=== PATIENT | female | born 1980 | race Caucasian/White ===

== ENCOUNTER 2017-10-14 12:04 | Day surgery (SDC) | payer OTHER ==
[~2017-10-14] VITALS: Ht 167.6 cm; Wt 60.3 kg
[~2017-10-14 12:04] MED LIST: ADAL40PEN INJ; ASCO250CH; CEPH500 PO; CIMZIA400 MG/2 M; CLIN150 PO; DIPATR PO; GABA300 PO; HYDACE5 PO; IBUP800 PO; MULVITMINE; NITR100CA; ONDA4 PO; ONDA4ODT MM; OXYACE5T PO; PHENA100; PHENA200 PO; PROM12.5S PR; PROM25 PO; RXPHEN200 PO; SERT100 PO; SULTRIDS PO; TRAM50 PO
[2017-10-14 12:24] LABS: BASOPHILS ABSOLUTE AUTO 0.05 K/mm3 (0.00-0.23); BASOPHILS PERCENT AUTO 1 % (0-2); EOSINOPHILS ABSOLUTE AUTO 0.06 K/mm3 (0.00-0.68); EOSINOPHILS PERCENT AUTO 1 % (0-6); Hematocrit 41.3 % (33.0-51.0); Hemoglobin 13.5 g/dL (11.5-16.0); IMMATURE GRAN ABSOLUTE AUTO 0.02 K/mm3 (0.00-0.10); IMMATURE GRAN PERCENT AUTO 0 % (0-1); LYMPHOCYTES ABSOLUTE AUTO 1.97 K/mm3 (0.84-5.20); LYMPHOCYTES PERCENT AUTO 30 % (21-46); MONOCYTES ABSOLUTE AUTO 0.31 K/mm3 (0.16-1.47); MONOCYTES PERCENT AUTO 5 % (4-13); Mean Corpuscular HGB 28.7 pg (26.0-34.0); Mean Corpuscular HGB Conc 32.7 g/dL (31.5-36.5); Mean Corpuscular Volume 88 fL (80-100); NEUTROPHILS ABSOLUTE AUTO 4.27 K/mm3 (1.96-9.15); NEUTROPHILS PERCENT AUTO 64 % (41-73); Platelet Count 352 K/mm3 (150-400); RDW Coefficient Variation 13.2 % (11.7-14.2); RDW Standard Deviation 42.5 fL (35.1-46.3); Red Blood Cell Count 4.71 M/mm3 (3.80-5.20); White Blood Cell Count 6.68 K/mm3 (4.00-11.30)
[2017-10-14 12:44] LABS: Alanine Aminotransfer (ALT/SGP 32 U/L (12-78); Albumin, Blood 3.5 g/dL (3.4-5.0); Albumin/Globulin Ratio 0.7 (0.8-1.8); Alk Phos 62 U/L (50-136); Anion Gap 10 mmol/L (6-16); Aspartate Aminotrans (AST/SGOT 25 U/L (12-37); Bilirubin, Total 0.2 mg/dL (0.1-1.0); Blood Urea Nitrogen 8 mg/dL (8-24); Bun/Creatinine Ratio 12.1 (12.0-20.0); C-REACTIVE PROTEIN, EXT RANGE 0.321 mg/dL (0.000-0.300); CO2, Blood 24 mmol/L (21-32); Calcium, Blood 8.3 mg/dL (8.5-10.1); Chloride, Blood 108 mmol/L (98-108); Creatinine, Blood 0.66 mg/dL (0.40-1.00); Glomerular Filtration Rate >60 (60-); Glucose, Blood 91 mg/dL (70-99); Potassium, Blood 3.4 mmol/L (3.5-5.5); Sodium, Blood 142 mmol/L (136-145); Total Protein, Blood 8.5 g/dL (6.4-8.2)
[2017-10-14 12:45] LABS: Percent Saturation 16.6 % (15.0-50.0)
[2017-10-14] MEDS ORDERED: VENL75ER PO (12:49)
[2017-10-14] MEDS ORDERED: Zonegran100 MG PO (12:49)
[2017-10-14] MEDS ORDERED: Cyclobenzaprine5 MG PO (12:50)
[2017-10-14] MEDS ORDERED: GABA100 PO (12:50)
[2018-02-07] MEDS ORDERED: ONDA4ODT MM (09:40)
[2018-02-07] MEDS ORDERED: ZONI100 PO (09:41)
[2018-02-07] MEDS ORDERED: Cyclobenzaprine5 MG PO (09:41)
[2018-02-07] MEDS ORDERED: VENL75ER PO (09:42)
[2018-02-07] MEDS ORDERED: BUTALB-ACETAMI1 EAC2 PO (09:42)
[2018-02-07] MEDS ORDERED: GABA100 PO (09:42)
[2018-02-07] MEDS ORDERED: OXYC5 PO (09:43)
[2018-02-07] MEDS ORDERED: LORA1 PO (09:43)
== END 2017-10-14 15:10 | disposition home or self-care (01) ==
LOC: ORSCSDS 12:04
PROVIDERS: Internal Medicine Gastroenterology
PROC: 0D7B8ZZ Dilation of Ileum, Via Natural or Artificial Opening Endoscopic (ICD-10-PCS; principal; 2017-10-14 13:45)
PROC: 0DBE8ZX Excision of Large Intestine, Via Natural or Artificial Opening Endoscopic, Diagnostic (ICD-10-PCS; principal; 2017-10-14 13:45)
DX: R19.7 Diarrhea, unspecified (principal); K63.3 Ulcer of intestine; K50.80 Crohn's disease of both small and large intestine without complications; M79.7 Fibromyalgia; G40.909 Epilepsy, unspecified, not intractable, without status epilepticus; F17.210 Nicotine dependence, cigarettes, uncomplicated; Z79.899 Other long term (current) drug therapy
CPT/HCPCS: 36415; 80053; 82306; 82728; 83540; 83550; 85025; 86140; 88305; C1726; J2060; J7120

== ENCOUNTER 2017-12-25 17:34 | Emergency (ER) | payer OTHER ==
[~2017-12-25] VITALS: Ht 167.6 cm; Wt 59.4 kg
[~2017-12-25 17:34] MED LIST changes: +Cyclobenzaprine5 MG; +GABA100; +ONDA4; +VENL75ER; +Zonegran100 MG
[2017-12-25 18:45] LABS: Calcium, Ionized (POC) 1.11 mmol/L (1.10-1.46); Chloride (POC) 105 mmol/L (98-108); Creatinine (POC) 0.6 mg/dL (0.6-1.0); Glucose (ISTAT POC) 84 mg/dL (70-99); Hemoglobin (POC) 11.6 g/dL (12.0-16.0); Potassium (POC) 3.5 mmol/L (3.5-5.5); Sodium (POC) 142 mmol/L (135-148); Total CO2 (POC) 23 mmol/L (21-32)
[2017-12-25 18:49] LABS: BASOPHILS ABSOLUTE AUTO 0.03 K/mm3 (0.00-0.23); BASOPHILS PERCENT AUTO 0 % (0-2); EOSINOPHILS ABSOLUTE AUTO 0.08 K/mm3 (0.00-0.68); EOSINOPHILS PERCENT AUTO 1 % (0-6); Hematocrit 35.3 % (33.0-51.0); Hemoglobin 11.5 g/dL (11.5-16.0); IMMATURE GRAN ABSOLUTE AUTO 0.01 K/mm3 (0.00-0.10); IMMATURE GRAN PERCENT AUTO 0 % (0-1); LYMPHOCYTES ABSOLUTE AUTO 2.05 K/mm3 (0.84-5.20); LYMPHOCYTES PERCENT AUTO 27 % (21-46); MONOCYTES ABSOLUTE AUTO 0.39 K/mm3 (0.16-1.47); MONOCYTES PERCENT AUTO 5 % (4-13); Mean Corpuscular HGB 28.3 pg (26.0-34.0); Mean Corpuscular HGB Conc 32.6 g/dL (31.5-36.5); Mean Corpuscular Volume 87 fL (80-100); Mean Platelet Volume 9.9 fL (9.1-12.4); NEUTROPHILS ABSOLUTE AUTO 4.99 K/mm3 (1.96-9.15); NEUTROPHILS PERCENT AUTO 66 % (41-73); Platelet Count 321 K/mm3 (150-400); RDW Coefficient Variation 13.2 % (11.7-14.2); RDW Standard Deviation 41.7 fL (35.1-46.3); Red Blood Cell Count 4.07 M/mm3 (3.80-5.20); White Blood Cell Count 7.55 K/mm3 (4.00-11.30)
[2017-12-25 19:09] LABS: Alanine Aminotransfer (ALT/SGP 20 U/L (12-78); Albumin, Blood 3.3 g/dL (3.4-5.0); Albumin/Globulin Ratio 0.7 (0.8-1.8); Alk Phos 56 U/L (50-136); Anion Gap 9 mmol/L (6-16); Aspartate Aminotrans (AST/SGOT 14 U/L (12-37); Bilirubin, Total 0.2 mg/dL (0.1-1.0); Blood Urea Nitrogen 10 mg/dL (8-24); Bun/Creatinine Ratio 15.1 (12.0-20.0); CO2, Blood 24 mmol/L (21-32); Calcium, Blood 8.2 mg/dL (8.5-10.1); Chloride, Blood 109 mmol/L (98-108); Creatinine, Blood 0.66 mg/dL (0.40-1.00); Globulin, Blood 4.5 g/dL (2.2-4.0); Glomerular Filtration Rate >60 (60-); Glucose, Blood 85 mg/dL (70-99); Potassium, Blood 3.6 mmol/L (3.5-5.5); Sodium, Blood 142 mmol/L (136-145); Total Protein, Blood 7.8 g/dL (6.4-8.2)
[2017-12-25] MEDS ORDERED: Bactrim Ds Tab1 EACH PO (20:50)
[2017-12-25] MEDS ORDERED: CEPH500 PO (20:50)
== END 2017-12-25 21:11 | disposition home or self-care (01) ==
LOC: ER 17:34
PROVIDERS: Physician Assistant
DX: L03.213 Periorbital cellulitis (principal); Z88.8 Allergy status to other drugs, medicaments and biological substances; Z88.5 Allergy status to narcotic agent; Z88.6 Allergy status to analgesic agent; Z79.899 Other long term (current) drug therapy; D64.9 Anemia, unspecified; F17.200 Nicotine dependence, unspecified, uncomplicated
CPT/HCPCS: 36415; 70487; 80047; 80053; 85014; 85025; 99284; Q9967

== ENCOUNTER → 2017-12-28 | Outpatient (CLI) | payer OTHER ==
[~2017-12-28] MED LIST changes: +BUTALB-ACETAMI1 EAC2 PO; +Bactrim Ds Tab1 EACH PO; -Cyclobenzaprine5 MG; +Cyclobenzaprine5 MG PO; -GABA100; +GABA100 PO; +METR500 PO; -ONDA4; -VENL75ER; +VENL75ER PO; -Zonegran100 MG; +Zonegran100 MG PO
[2017-12-29 10:36] LABS: Candida species (DNA Probe) Negative (NEGATIVE); G. vaginalis (DNA Probe) Positive (NEGATIVE); T. vaginalis (DNA Probe) Negative (NEGATIVE)
== END ==
LOC: LAB SHORT 11:35 → LAB 11:35
PROVIDERS: Advanced Practice Midwife
DX: Z01.419 Encounter for gynecological examination (general) (routine) without abnormal findings (principal); L29.9 Pruritus, unspecified
CPT/HCPCS: 87480; 87510; 87624; 87660; G0123

== ENCOUNTER 2018-01-03 09:01 | Inpatient (IN) | payer OTHER ==
[~2018-01-03] VITALS: Ht 167.6 cm; Wt 59.4 kg
[~2018-01-03 09:01] MED LIST changes: -BUTALB-ACETAMI1 EAC2 PO; -METR500 PO
[2018-01-03] MEDS ORDERED: METR500 PO (09:58)
[2018-01-03] MEDS ORDERED: BUTALB-ACETAMI1 EAC2 PO (09:59)
[2018-01-03 10:47] LABS: BASOPHILS ABSOLUTE AUTO 0.03 K/mm3 (0.00-0.23); BASOPHILS PERCENT AUTO 0 % (0-2); EOSINOPHILS ABSOLUTE AUTO 0.09 K/mm3 (0.00-0.68); EOSINOPHILS PERCENT AUTO 1 % (0-6); Hematocrit 37.4 % (33.0-51.0); Hemoglobin 12.4 g/dL (11.5-16.0); IMMATURE GRAN ABSOLUTE AUTO 0.02 K/mm3 (0.00-0.10); IMMATURE GRAN PERCENT AUTO 0 % (0-1); LYMPHOCYTES PERCENT AUTO 23 % (21-46); MONOCYTES ABSOLUTE AUTO 0.48 K/mm3 (0.16-1.47); MONOCYTES PERCENT AUTO 6 % (4-13); Mean Corpuscular HGB Conc 33.2 g/dL (31.5-36.5); Mean Corpuscular Volume 84 fL (80-100); Mean Platelet Volume 9.9 fL (9.1-12.4); NEUTROPHILS ABSOLUTE AUTO 6.01 K/mm3 (1.96-9.15); NEUTROPHILS PERCENT AUTO 70 % (41-73); Platelet Count 356 K/mm3 (150-400); RDW Coefficient Variation 13.3 % (11.7-14.2); RDW Standard Deviation 41.1 fL (35.1-46.3); Red Blood Cell Count 4.43 M/mm3 (3.80-5.20); White Blood Cell Count 8.63 K/mm3 (4.00-11.30)
[2018-01-03 11:04] LABS: Alanine Aminotransfer (ALT/SGP 21 U/L (12-78); Albumin/Globulin Ratio 0.6 (0.8-1.8); Alk Phos 58 U/L (50-136); Anion Gap 7 mmol/L (6-16); Aspartate Aminotrans (AST/SGOT 16 U/L (12-37); Bilirubin, Total 0.3 mg/dL (0.1-1.0); Blood Urea Nitrogen 7 mg/dL (8-24); Bun/Creatinine Ratio 10.6 (12.0-20.0); CO2, Blood 27 mmol/L (21-32); Calcium, Blood 8.5 mg/dL (8.5-10.1); Chloride, Blood 104 mmol/L (98-108); Creatinine, Blood 0.66 mg/dL (0.40-1.00); Globulin, Blood 4.7 g/dL (2.2-4.0); Glomerular Filtration Rate >60 (60-); Glucose, Blood 84 mg/dL (70-99); Potassium, Blood 3.6 mmol/L (3.5-5.5); Sodium, Blood 138 mmol/L (136-145); Total Protein, Blood 7.7 g/dL (6.4-8.2)
[2018-01-03 11:34] LABS: Lactate Dehydrogenase (Ld),Bld 77 U/L (100-240); Triglycerides 154 mg/dL (30-140)
[2018-01-03 14:55] LABS: Cholesterol 111 mg/dL (50-200); Triglycerides 140 mg/dL (30-140)
[2018-01-04 08:43] LABS: BASOPHILS ABSOLUTE AUTO 0.03 K/mm3 (0.00-0.23); BASOPHILS PERCENT AUTO 1 % (0-2); EOSINOPHILS ABSOLUTE AUTO 0.08 K/mm3 (0.00-0.68); EOSINOPHILS PERCENT AUTO 1 % (0-6); Hematocrit 32.2 % (33.0-51.0); Hemoglobin 10.5 g/dL (11.5-16.0); IMMATURE GRAN ABSOLUTE AUTO 0.01 K/mm3 (0.00-0.10); IMMATURE GRAN PERCENT AUTO 0 % (0-1); LYMPHOCYTES ABSOLUTE AUTO 2.23 K/mm3 (0.84-5.20); LYMPHOCYTES PERCENT AUTO 35 % (21-46); MONOCYTES ABSOLUTE AUTO 0.37 K/mm3 (0.16-1.47); MONOCYTES PERCENT AUTO 6 % (4-13); Mean Corpuscular HGB Conc 32.6 g/dL (31.5-36.5); Mean Corpuscular Volume 86 fL (80-100); Mean Platelet Volume 9.7 fL (9.1-12.4); NEUTROPHILS ABSOLUTE AUTO 3.71 K/mm3 (1.96-9.15); NEUTROPHILS PERCENT AUTO 58 % (41-73); Platelet Count 304 K/mm3 (150-400); RDW Coefficient Variation 13.2 % (11.7-14.2); RDW Standard Deviation 41.1 fL (35.1-46.3); Red Blood Cell Count 3.75 M/mm3 (3.80-5.20); White Blood Cell Count 6.43 K/mm3 (4.00-11.30)
[2018-01-04 08:59] LABS: Alanine Aminotransfer (ALT/SGP 19 U/L (12-78); Albumin, Blood 2.6 g/dL (3.4-5.0); Albumin/Globulin Ratio 0.6 (0.8-1.8); Alk Phos 53 U/L (50-136); Anion Gap 9 mmol/L (6-16); Aspartate Aminotrans (AST/SGOT 17 U/L (12-37); Bilirubin, Total 0.2 mg/dL (0.1-1.0); Blood Urea Nitrogen 6 mg/dL (8-24); Bun/Creatinine Ratio 9.6 (12.0-20.0); CO2, Blood 27 mmol/L (21-32); Calcium, Blood 7.9 mg/dL (8.5-10.1); Chloride, Blood 103 mmol/L (98-108); Creatinine, Blood 0.62 mg/dL (0.40-1.00); Globulin, Blood 4.1 g/dL (2.2-4.0); Glomerular Filtration Rate >60 (60-); Glucose, Blood 63 mg/dL (70-99); Potassium, Blood 3.4 mmol/L (3.5-5.5); Sodium, Blood 139 mmol/L (136-145); Total Protein, Blood 6.7 g/dL (6.4-8.2)
== END 2018-01-05 12:30 | disposition left against medical advice (07) | DRG 439 ==
LOC: ER 09:01 → MEDS 11:26 → ENPENDDIS 01-05 11:00 → MEDS 01-05 12:30
PROVIDERS: Emergency Medicine; Internal Medicine
DX: K85.90 Acute pancreatitis without necrosis or infection, unspecified (principal); K50.90 Crohn's disease, unspecified, without complications; F32.9 Major depressive disorder, single episode, unspecified; M12.9 Arthropathy, unspecified; M79.7 Fibromyalgia
CPT/HCPCS: 36415; 80053; 82465; 83615; 83690; 84478; 84703; 85025; 87081; 96361; 96374; 99285; J0780; J1650; J2405; J2550; J3010; J7030; J7120

== ENCOUNTER → 2018-02-10 | Outpatient (CLI) | payer OTHER ==
[~2018-02-10] MED LIST changes: +BUTALB-ACETAMI1 EAC2 PO; +LORA1 PO; +METR500 PO; +OXYC5 PO; +ZONI100 PO
[2018-02-11 11:23] LABS: Candida species (DNA Probe) Negative (NEGATIVE); G. vaginalis (DNA Probe) Positive (NEGATIVE); T. vaginalis (DNA Probe) Negative (NEGATIVE)
[2018-02-14 08:10] LABS: CHLAMYDIA BY NAA Negative (Negative); GONOCOCCUS BY NAA Negative (Negative); TRICH VAG BY NAA Negative (Negative)
== END | disposition home or self-care (01) ==
LOC: LAB SHORT 18:07 → LAB 18:07
PROVIDERS: Advanced Practice Midwife
DX: Z11.3 Encounter for screening for infections with a predominantly sexual mode of transmission (principal); N76.0 Acute vaginitis
CPT/HCPCS: 87480; 87491; 87510; 87591; 87660; 87661

== ENCOUNTER → 2018-08-24 | Outpatient (CLI) | payer OTHER ==
[2018-08-24 16:21] LABS: BASOPHILS ABSOLUTE AUTO 0.03 K/mm3 (0.00-0.23); BASOPHILS PERCENT AUTO 0 % (0-2); EOSINOPHILS ABSOLUTE AUTO 0.08 K/mm3 (0.00-0.68); EOSINOPHILS PERCENT AUTO 1 % (0-6); Hematocrit 36.2 % (33.0-51.0); Hemoglobin 11.9 g/dL (11.5-16.0); IMMATURE GRAN ABSOLUTE AUTO 0.03 K/mm3 (0.00-0.10); IMMATURE GRAN PERCENT AUTO 0 % (0-1); LYMPHOCYTES ABSOLUTE AUTO 2.43 K/mm3 (0.84-5.20); LYMPHOCYTES PERCENT AUTO 34 % (21-46); MONOCYTES ABSOLUTE AUTO 0.45 K/mm3 (0.16-1.47); MONOCYTES PERCENT AUTO 6 % (4-13); Mean Corpuscular HGB 30.1 pg (26.0-34.0); Mean Corpuscular HGB Conc 32.9 g/dL (31.5-36.5); Mean Corpuscular Volume 91 fL (80-100); Mean Platelet Volume 10.1 fL (9.1-12.4); NEUTROPHILS ABSOLUTE AUTO 4.15 K/mm3 (1.96-9.15); NEUTROPHILS PERCENT AUTO 58 % (41-73); Platelet Count 285 K/mm3 (150-400); RDW Coefficient Variation 12.9 % (11.7-14.2); RDW Standard Deviation 42.9 fL (35.1-46.3); Red Blood Cell Count 3.96 M/mm3 (3.80-5.20); White Blood Cell Count 7.17 K/mm3 (4.00-11.30)
[2018-08-24 17:05] LABS: Alanine Aminotransfer (ALT/SGP 28 U/L (12-78); Albumin, Blood 3.8 g/dL (3.4-5.0); Alk Phos 54 U/L (50-136); Anion Gap 8 mmol/L (6-16); Aspartate Aminotrans (AST/SGOT 16 U/L (12-37); Bilirubin, Total 0.3 mg/dL (0.1-1.0); Blood Urea Nitrogen 13 mg/dL (8-24); CO2, Blood 25 mmol/L (21-32); Calcium, Blood 8.4 mg/dL (8.5-10.1); Chloride, Blood 106 mmol/L (98-108); Creatinine, Blood 0.93 mg/dL (0.40-1.00); Globulin, Blood 3.7 g/dL (2.2-4.0); Glomerular Filtration Rate >60 (60-); Glucose, Blood 76 mg/dL (70-99); Potassium, Blood 3.7 mmol/L (3.5-5.5); Sodium, Blood 139 mmol/L (136-145); Total Protein, Blood 7.5 g/dL (6.4-8.2)
[2018-08-24 17:07] LABS: Percent Saturation 8.4 % (15.0-50.0)
== END ==
LOC: LAB 15:40 → LAB SHORT 15:40
PROVIDERS: Physician Assistant
DX: K50.80 Crohn's disease of both small and large intestine without complications (principal)
CPT/HCPCS: 80053; 82306; 82728; 83540; 83550; 85025

== ENCOUNTER → 2018-09-21 | Outpatient (CLI) | payer OTHER ==
[2018-09-22 08:19] LABS: Candida species (DNA Probe) Negative (NEGATIVE); G. vaginalis (DNA Probe) Negative (NEGATIVE); T. vaginalis (DNA Probe) Negative (NEGATIVE)
== END | disposition home or self-care (01) ==
LOC: LAB 16:40 → LAB SHORT 16:40
PROVIDERS: Advanced Practice Midwife
DX: N76.0 Acute vaginitis (principal)
CPT/HCPCS: 87070; 87205; 87480; 87510; 87660

== ENCOUNTER 2018-10-16 17:50 | Emergency (ER) | payer OTHER | END 2018-10-16 19:56 | disposition left against medical advice (07) | LOC: ER 17:50 | DX: Z53.21 Procedure and treatment not carried out due to patient leaving prior to being seen by health care provider (principal) ==

== ENCOUNTER → 2018-10-17 | Outpatient (CLI) | payer OTHER ==
[2018-10-17 15:45] LABS: BASOPHILS ABSOLUTE AUTO 0.07 K/mm3 (0.00-0.23); BASOPHILS PERCENT AUTO 0 % (0-2); EOSINOPHILS ABSOLUTE AUTO 0.12 K/mm3 (0.00-0.68); EOSINOPHILS PERCENT AUTO 1 % (0-6); Hematocrit 37.2 % (33.0-51.0); Hemoglobin 12.8 g/dL (11.5-16.0); IMMATURE GRAN ABSOLUTE AUTO 0.17 K/mm3 (0.00-0.10); IMMATURE GRAN PERCENT AUTO 1 % (0-1); LYMPHOCYTES ABSOLUTE AUTO 2.49 K/mm3 (0.84-5.20); LYMPHOCYTES PERCENT AUTO 11 % (21-46); MONOCYTES ABSOLUTE AUTO 0.83 K/mm3 (0.16-1.47); MONOCYTES PERCENT AUTO 4 % (4-13); Mean Corpuscular HGB 29.2 pg (26.0-34.0); Mean Corpuscular HGB Conc 34.4 g/dL (31.5-36.5); Mean Corpuscular Volume 85 fL (80-100); Mean Platelet Volume 9.7 fL (9.1-12.4); NEUTROPHILS ABSOLUTE AUTO 19.22 K/mm3 (1.96-9.15); NEUTROPHILS PERCENT AUTO 84 % (41-73); Platelet Count 345 K/mm3 (150-400); RDW Coefficient Variation 12.9 % (11.7-14.2); RDW Standard Deviation 40.1 fL (35.1-46.3); Red Blood Cell Count 4.39 M/mm3 (3.80-5.20)
[2018-10-17 15:58] LABS: Alanine Aminotransfer (ALT/SGP 26 U/L (12-78); Albumin/Globulin Ratio 0.6 (0.8-1.8); Alk Phos 105 U/L (40-126); Anion Gap 11 mmol/L (6-16); Aspartate Aminotrans (AST/SGOT 14 U/L (12-37); Bilirubin, Total 0.5 mg/dL (0.1-1.0); Blood Urea Nitrogen 9 mg/dL (8-24); Bun/Creatinine Ratio 11.4 (12.0-20.0); CO2, Blood 27 mmol/L (21-32); Calcium, Blood 8.2 mg/dL (8.5-10.1); Chloride, Blood 95 mmol/L (98-108); Creatinine, Blood 0.79 mg/dL (0.40-1.00); Globulin, Blood 5.3 g/dL (2.2-4.0); Glomerular Filtration Rate >60 (60-); Glucose, Blood 91 mg/dL (70-99); Potassium, Blood 3.5 mmol/L (3.5-5.5); Sodium, Blood 133 mmol/L (136-145); Total Protein, Blood 8.3 g/dL (6.4-8.2)
== END | disposition home or self-care (01) ==
LOC: LAB SHORT 15:41 → LAB EV 15:41
PROVIDERS: Physician Assistant
DX: N39.0 Urinary tract infection, site not specified (principal); R11.2 Nausea with vomiting, unspecified
CPT/HCPCS: 80053; 85025

== ENCOUNTER → 2019-01-16 | Outpatient (CLI) | payer OTHER ==
[2019-01-17 11:14] LABS: Candida species (DNA Probe) Negative (NEGATIVE); G. vaginalis (DNA Probe) Positive (NEGATIVE); T. vaginalis (DNA Probe) Negative (NEGATIVE)
[2019-01-19 01:08] LABS: CHLAMYDIA TRACHOMATIS, NAA Negative (Negative); HPV 16 Negative (Negative); HPV 18 Negative (Negative); HPV OTHER HR TYPES Negative (Negative); NEISSERIA GONORRHOEAE, NAA Negative (Negative)
== END | disposition home or self-care (01) ==
LOC: LAB 16:53 → LAB SHORT 16:53
PROVIDERS: Advanced Practice Midwife
DX: Z01.419 Encounter for gynecological examination (general) (routine) without abnormal findings (principal); Z11.3 Encounter for screening for infections with a predominantly sexual mode of transmission; N93.8 Other specified abnormal uterine and vaginal bleeding; N89.8 Other specified noninflammatory disorders of vagina; N89.9 Noninflammatory disorder of vagina, unspecified
CPT/HCPCS: 87480; 87510; 87529; 87660

== ENCOUNTER → 2019-02-07 | Outpatient (CLI) | payer OTHER ==
[2019-02-07 17:48] LABS: Alanine Aminotransfer (ALT/SGP 27 U/L (12-78); Albumin, Blood 3.9 g/dL (3.4-5.0); Alk Phos 56 U/L (50-136); Anion Gap 7 mmol/L (6-16); Aspartate Aminotrans (AST/SGOT 16 U/L (12-37); Bilirubin, Total 0.3 mg/dL (0.1-1.0); Blood Urea Nitrogen 9 mg/dL (8-24); Bun/Creatinine Ratio 11.4 (12.0-20.0); CO2, Blood 27 mmol/L (21-32); Calcium, Blood 8.2 mg/dL (8.5-10.1); Chloride, Blood 107 mmol/L (98-108); Creatinine, Blood 0.79 mg/dL (0.40-1.00); Globulin, Blood 3.9 g/dL (2.2-4.0); Glomerular Filtration Rate >60 (60-); Glucose, Blood 81 mg/dL (70-99); Potassium, Blood 4.3 mmol/L (3.5-5.5); Sodium, Blood 141 mmol/L (136-145); Total Protein, Blood 7.8 g/dL (6.4-8.2)
== END ==
LOC: LAB SHORT 17:09 → LAB 17:09
PROVIDERS: Physician Assistant
DX: K50.80 Crohn's disease of both small and large intestine without complications (principal); E61.1 Iron deficiency
CPT/HCPCS: 80053; 82728; 83540; 83550

== ENCOUNTER → 2019-02-20 | Outpatient (CLI) | payer OTHER | END | disposition home or self-care (01) | LOC: LAB SHORT 09:31 → PLD 09:31 | DX: N92.0 Excessive and frequent menstruation with regular cycle (principal) | CPT/HCPCS: 88305 ==

== ENCOUNTER 2019-03-28 08:35 | Day surgery (SDC) | payer OTHER ==
[~2019-03-28] VITALS: Ht 167.6 cm; Wt 61.9 kg
--- NOTE | 2019-03-28 10:43 | NUR ---
03/28/19 1043 Becki Cespedes BP 88/53 DR. GIBBONS AWARE, NO ORDERS, CONTINUE TO MONITOR.
--- NOTE | 2019-03-28 11:18 | NUR ---
03/28/19 1118 Becki Cespedes DEACCESSED WITHOUT ANY PROBLEMS. BANDAID APPLIED TO SITE AFTER NEEDLE OUT.
== END 2019-03-28 11:15 | disposition home or self-care (01) ==
LOC: ORSCSDS 08:35
PROVIDERS: Internal Medicine Gastroenterology
PROC: 0DBB8ZX Excision of Ileum, Via Natural or Artificial Opening Endoscopic, Diagnostic (ICD-10-PCS; principal; 2019-03-28 09:45)
PROC: 0D7B8ZZ Dilation of Ileum, Via Natural or Artificial Opening Endoscopic (ICD-10-PCS; principal; 2019-03-28 09:45)
PROC: 0DBE8ZX Excision of Large Intestine, Via Natural or Artificial Opening Endoscopic, Diagnostic (ICD-10-PCS; principal; 2019-03-28 09:45)
DX: R19.7 Diarrhea, unspecified (principal); R10.9 Unspecified abdominal pain; K50.90 Crohn's disease, unspecified, without complications; K56.699 Other intestinal obstruction unspecified as to partial versus complete obstruction; I10 Essential (primary) hypertension; G40.909 Epilepsy, unspecified, not intractable, without status epilepticus; Z87.891 Personal history of nicotine dependence; Z79.899 Other long term (current) drug therapy
CPT/HCPCS: 88305; C1726; J1642; J2704; J7120

== ENCOUNTER 2019-05-16 07:11 | Day surgery (SDC) | payer OTHER ==
[~2019-05-16] VITALS: Ht 167.6 cm; Wt 60.4 kg
--- NOTE | 2019-05-16 07:59 | NUR ---
Ambulatory in Day Surgery.REPORTS 4/10 LOWER BACK PAIN. ALSO, REPORTS ANXIETY REGARDING IV START. ORDER OBTAINED FROM DR. MURRAY FOR ATIVAN 1 MG PO PRIOR TO IV START. HISTORY AND ALLERGIES REVIEWED. NPO STATUS CONFIRMED. LUNGS CLEAR.
--- NOTE | 2019-05-16 10:11 | NUR ---
INTO STEP VIA YOUNG. PT SOMULENT, BUT AWAKENS TO VERBAL. STERI STRIP TO RIGHT CHEST WALL C/D/I-NO NOTED BLEEDING OR HEMATOMA. VS WDL. WILL INITIATE ROSEMARY WHEN PT AWAKE AND ALERT.
--- NOTE | 2019-05-16 12:16 | NUR ---
Patient up to Ambulate independently. Gait steady. Dressing to procedure site clean, dry, intact with no visible drainage, swelling, erythema or bruising noted. Discharge instructions reviewed with patient. Patient verbalizes understanding. Copy given to patient to take home. Discharged via wheelchair to private car for ride home.
== END 2019-05-16 12:15 | disposition home or self-care (01) ==
LOC: ORSCMMR 07:11 → ORD 07:30 → ORSCMMR 07:30
PROVIDERS: Surgery
PROC: 0JPT3WZ Removal of Totally Implantable Vascular Access Device from Trunk Subcutaneous Tissue and Fascia, Percutaneous Approach (ICD-10-PCS; principal; 2019-05-16 09:00)
DX: T80.212A Local infection due to central venous catheter, initial encounter (principal); K50.80 Crohn's disease of both small and large intestine without complications; Z87.891 Personal history of nicotine dependence; Z79.899 Other long term (current) drug therapy
CPT/HCPCS: 87070; 87077; 87186; J0690; J2250; J3010; J7120

== ENCOUNTER 2019-06-19 06:03 | Day surgery (SDC) | payer OTHER ==
[~2019-06-19] VITALS: Ht 167.6 cm; Wt 62.0 kg
[2019-06-19] MEDS ORDERED: TROKENDI XR100 MG PO (06:26)
--- NOTE | 2019-06-19 06:40 | NUR ---
Ambulatory in Day Surgery.PT REPORTS FEELING EXTREMELY ANXIOUS. SHE REMINDS THIS RN OF HER MEDIPORT REMOVAL. AT THAT TIME SHE HAD AN ANXIETY ATTACK AND NEEDE ATIVAN PRIOR TO IV START. DR. ANAND CONTACTED AND ORDER OBTAINED. History, Chart, Medications and Allergies reviewed before start of procedure.Lungs clear T/O to Auscultation. Patient confirms NPO status and agrees with scheduled surgery. Surgical site prepped with 2% Chlorhexidine cloth wipe. Patient States Post-Procedure ride home has been arranged.
--- NOTE | 2019-06-19 08:29 | NUR ---
06/19/19 0829 Koby Castaneda AFTER ATTEMPTING TO PLACE THE MEDIPORT ON THE RIGHT, THE MEDIPORT WAS SUCCESFULLY PLACED ON THE LEFT SIDE OF CHEST.
--- NOTE | 2019-06-19 13:11 | NUR ---
Patient up to Ambulate independently. Gait steady. Discharge instructions reviewed with patient. Patient verbalizes understanding. Copy given to patient to take home. Discharged via wheelchair to private car for ride home WITH BOYFRIEND.
== END 2019-06-19 22:50 | disposition home or self-care (01) ==
LOC: ORSCMMR 06:03 → ORD 07:30 → ORSCMMR 22:50
PROVIDERS: Surgery
PROC: 05H633Z Insertion of Infusion Device into Left Subclavian Vein, Percutaneous Approach (ICD-10-PCS; principal; 2019-06-19 07:30)
PROC: B5171ZA Fluoroscopy of Left Subclavian Vein using Low Osmolar Contrast, Guidance (ICD-10-PCS; principal; 2019-06-19 07:30)
DX: K50.80 Crohn's disease of both small and large intestine without complications (principal)
CPT/HCPCS: 77001; C1788; J0690; J1100; J1642; J2250; J2405; J2704; J3010; J7120

== ENCOUNTER 2019-07-17 08:41 | Day surgery (SDC) | payer OTHER ==
[~2019-07-17] VITALS: Ht 167.6 cm; Wt 61.4 kg
[~2019-07-17 08:41] MED LIST changes: +ASCO500 PO; +FERSU300 PO; +TROKENDI XR100 MG PO; +VITAMIN D250000 UNI1 PO; +VITAMIN D31000 UNI3 PO; +[UNRECOGNIZED DRUG - OTHER]
--- NOTE | 2019-07-17 09:13 | NUR ---
Ambulatory in Day Surgery.PT IS VERY ANXIOUS. DR. GLORIA AWARE. ORDER OBTAINED FOR ATIVAN 2 MG PO. ALSO, VERBAL OK TO ACCESS MEDIPORT PER DR. GLORIA. History, Chart, Medications and Allergies reviewed before start of procedure.Lungs clear T/O to Auscultation. Patient confirms NPO status and agrees with scheduled surgery. Patient reports completing Chlorhexadine shower X2 prior to admission to hospital.Surgical site prepped with 2% Chlorhexidine cloth wipe.
--- NOTE | 2019-07-17 09:18 | NUR ---
MED WITH ATIVAN 2 MG PO, THEN LEFT CHEST MEDIPORT ACCESSED WITH 20 GUAGE 1 INCH CATHETER. CBC SENT TO LAB.
[2019-07-17 09:58] LABS: BASOPHILS ABSOLUTE AUTO 0.03 K/mm3 (0.00-0.23); BASOPHILS PERCENT AUTO 0 % (0-2); EOSINOPHILS ABSOLUTE AUTO 0.08 K/mm3 (0.00-0.68); EOSINOPHILS PERCENT AUTO 1 % (0-6); Hematocrit 27.9 % (33.0-51.0); Hemoglobin 9.6 g/dL (11.5-16.0); IMMATURE GRAN ABSOLUTE AUTO 0.29 K/mm3 (0.00-0.10); IMMATURE GRAN PERCENT AUTO 4 % (0-1); LYMPHOCYTES ABSOLUTE AUTO 2.89 K/mm3 (0.84-5.20); LYMPHOCYTES PERCENT AUTO 42 % (21-46); MONOCYTES ABSOLUTE AUTO 0.37 K/mm3 (0.16-1.47); MONOCYTES PERCENT AUTO 5 % (4-13); Mean Corpuscular HGB 30.1 pg (26.0-34.0); Mean Corpuscular HGB Conc 34.4 g/dL (31.5-36.5); Mean Corpuscular Volume 88 fL (80-100); NEUTROPHILS PERCENT AUTO 48 % (41-73); NRBC ABSOLUTE 0.04 K/mm3 (0.00-0.02); NRBC Auto 0.6 /100 WBC (0.0-0.2); RDW Coefficient Variation 13.4 % (11.7-14.2); RDW Standard Deviation 42.9 fL (35.1-46.3); Red Blood Cell Count 3.19 M/mm3 (3.80-5.20); White Blood Cell Count 6.96 K/mm3 (4.00-11.30)
[2019-07-17 10:11] LABS: Mean Platelet Volume 9.4 fL (9.1-12.4); Platelet Count 342 K/mm3 (150-400)
--- NOTE | 2019-07-17 14:34 | NUR ---
PT AGGITATED, ATTEMPTING TO CLIMB OUT OF BED. PT WAS ABLE TO EXPRESS THAT SHE WAS HAVING PAIN ALTHOUGH UNABLE TO RATE PAIN ON PAIN SCALE. FLACC SCORE 9/10, PT MEDICATED WITH 0.5MG DILAUDID AT THIS TIME. PTS FAMILY EDUCATED TO CALL RN FOR ANY CONCERNS.
--- NOTE | 2019-07-17 18:58 | NUR ---
SHIFT SUMMARY PT POD 0 LAVH. STERI STRIPS X'S 3 C/D/I. SCANT AMT BLOOD PRESENT ON FERNANDO PAD. EVANS PATENT, DRAINING CLEAR YELLOW URINE. PT HAS APPEARED TO BE SEDATED SINCE ARRIVAL TO UNIT. HOWEVER, DOES WAKE TO VERBALIZE PAIN. MEDICATED PER EMAR. DR CORDOBA NOTIFIED THAT PT HAS NOT BEEN AWAKE ENOUGH TO AMBULATE.
[2019-07-18 05:12] LABS: BASOPHILS ABSOLUTE AUTO 0.03 K/mm3 (0.00-0.23); BASOPHILS PERCENT AUTO 0 % (0-2); EOSINOPHILS ABSOLUTE AUTO 0.04 K/mm3 (0.00-0.68); EOSINOPHILS PERCENT AUTO 0 % (0-6); Hematocrit 35.4 % (33.0-51.0); Hemoglobin 11.7 g/dL (11.5-16.0); IMMATURE GRAN ABSOLUTE AUTO 0.03 K/mm3 (0.00-0.10); IMMATURE GRAN PERCENT AUTO 0 % (0-1); LYMPHOCYTES ABSOLUTE AUTO 2.21 K/mm3 (0.84-5.20); LYMPHOCYTES PERCENT AUTO 21 % (21-46); MONOCYTES ABSOLUTE AUTO 0.73 K/mm3 (0.16-1.47); MONOCYTES PERCENT AUTO 7 % (4-13); Mean Corpuscular HGB 29.2 pg (26.0-34.0); Mean Corpuscular HGB Conc 33.1 g/dL (31.5-36.5); Mean Corpuscular Volume 88 fL (80-100); Mean Platelet Volume 9.1 fL (9.1-12.4); NEUTROPHILS ABSOLUTE AUTO 7.29 K/mm3 (1.96-9.15); NEUTROPHILS PERCENT AUTO 71 % (41-73); Platelet Count 331 K/mm3 (150-400); RDW Standard Deviation 42.1 fL (35.1-46.3); Red Blood Cell Count 4.01 M/mm3 (3.80-5.20); White Blood Cell Count 10.33 K/mm3 (4.00-11.30)
--- NOTE | 2019-07-18 07:12 | NUR ---
SHIFT SUMMARY: PT POD #1 FOR WENDIYossi. KAREEMI STRIPS CDI. PT DROWSY THROUGHOUT SHIFT. MEDICATED WITH IV AND ORAL PAIN MEDICATION PER EMAR. FLUIDS INFUSING. MINIMAL PO INTAKE. PT DENIES PASSING FLATUS. HYPOACTIVE BT WITH MILD DISTENTION. FLUIDS INFUSING. PT ENC TO AMBULATE SEVERAL TIMES. OUT OF BED ONCE. PT ABLE TO STAND AND WALK IN PLACE. EVANS TAKEN OUT THIS MORNING AT APPROX 0500. WAITING FOR POST VOID. S/O AT BEDSIDE.
--- NOTE | 2019-07-18 10:22 | NUR ---
THIS RN AMBULATED PT IN HALLWAY AND ASSISTED PT TO RESTROOM. THIS RN INSTRUCTED PT AND SPOUSE TO CALL WHEN FINISHED SO NURSING STAFF CAN ASSIST PT IN SHOWER AFTER COVERING IV SITES. THIS RN WENT TO ROUND ON PT APPROX 5 MINUTES LATER AT 1005 AND PT HAD GOTTEN IN THE SHOWER WITHOUT NURSING STAFF ASSISTANCE. FLUIDS STILL INFUSING IN MEDIPORT. PERIPHERAL IV NOT COVERED.
--- NOTE | 2019-07-18 10:54 | NUR ---
[facility] DRESSING CHANGED. STERILE TECHNIQUE MAINTAINED. PERIPHERAL IV DC'D.
[2019-07-18] MEDS ORDERED: OXYC5 PO (12:40)
[2019-07-18] MEDS ORDERED: ACET325 PO (12:45)
--- NOTE | 2019-07-18 14:31 | NUR ---
07/18/19 1431 Tash Haynes VERIFICATIONS: EDIT CHART.
--- NOTE | 2019-07-18 14:37 | NUR ---
DISCHARGE PT AND SPOUSE EDUCATED ON AND RECEIVED PRINTED DC INSTRUCTIONS AND HARD RX FOR OXYCODONE AND VERBALIZED AN UNDERSTANDING. MEDIPORT DEACCESSED PER PROTOCOL. IV DC'D. SPOUSE GATHERING ALL PERSONAL BELONGINGS. PT VOIDING SPONTANEOUSLY.
== END 2019-07-18 14:46 | disposition home or self-care (01) ==
LOC: ORSCMMR 08:41 → ORD 10:00 → SURS 13:23 → ORSCMMR 07-18 14:46
PROVIDERS: Obstetrics & Gynecology
PROC: 0UT7FZZ Resection of Bilateral Fallopian Tubes, Via Natural or Artificial Opening With Percutaneous Endoscopic Assistance (ICD-10-PCS; principal; 2019-07-17 10:00)
PROC: 0UT0FZZ Resection of Right Ovary, Via Natural or Artificial Opening With Percutaneous Endoscopic Assistance (ICD-10-PCS; principal; 2019-07-17 10:00)
PROC: 0UT9FZZ Resection of Uterus, Via Natural or Artificial Opening With Percutaneous Endoscopic Assistance (ICD-10-PCS; principal; 2019-07-17 10:00)
DX: N80.0 Endometriosis of uterus (principal); N92.0 Excessive and frequent menstruation with regular cycle; N94.6 Dysmenorrhea, unspecified; R10.2 Pelvic and perineal pain; I10 Essential (primary) hypertension; F17.210 Nicotine dependence, cigarettes, uncomplicated; K21.9 Gastro-esophageal reflux disease without esophagitis; Z79.899 Other long term (current) drug therapy
CPT/HCPCS: 85025; 87081; 88307; A9270; J0690; J1100; J1170; J1642; J2370; J2405; J2704; J3010; J7120

== ENCOUNTER → 2019-10-16 | Outpatient (CLI) | payer OTHER ==
[~2019-10-16] MED LIST changes: +ACET325 PO
== END | disposition home or self-care (01) ==
LOC: LAB EV 18:29 → LAB SHORT 18:29
DX: N39.0 Urinary tract infection, site not specified (principal)
CPT/HCPCS: 87077; 87086; 87186

== ENCOUNTER → 2019-10-31 | Outpatient (CLI) | payer OTHER | END | disposition home or self-care (01) | LOC: LAB 14:05 → LAB SHORT 14:05 | DX: E55.9 Vitamin D deficiency, unspecified (principal) | CPT/HCPCS: 82306 ==

== ENCOUNTER → 2019-12-06 | Outpatient (CLI) | payer OTHER ==
[2019-12-06 15:54] LABS: Blood Urea Nitrogen 14 mg/dL (8-24); Glomerular Filtration Rate >60 (60-)
== END | disposition home or self-care (01) ==
LOC: LAB 13:45 → LAB SHORT 13:45
PROVIDERS: Internal Medicine Gastroenterology
DX: R10.84 Generalized abdominal pain (principal)
CPT/HCPCS: 82565; 84520

== ENCOUNTER → 2020-02-07 | Outpatient (CLI) | payer OTHER ==
[~2020-02-07] MED LIST changes: +BORIC ACID; +ENTYVIO300 MG
[2020-02-08 08:09] LABS: HIV SCREEN 4TH GENERATION WRFX Non Reactive (Non Reactive)
== END | disposition home or self-care (01) ==
LOC: LAB 11:20 → LAB SHORT 11:20
PROVIDERS: Internal Medicine Hematology & Oncology
DX: Z20.6 Contact with and (suspected) exposure to human immunodeficiency virus [HIV] (principal)
CPT/HCPCS: 87389

== ENCOUNTER → 2020-03-21 | Outpatient (CLI) | payer OTHER ==
[2020-03-21 20:06] LABS: BASOPHILS ABSOLUTE AUTO 0.05 K/mm3 (0.00-0.23); BASOPHILS PERCENT AUTO 1 % (0-2); EOSINOPHILS ABSOLUTE AUTO 0.11 K/mm3 (0.00-0.68); EOSINOPHILS PERCENT AUTO 1 % (0-6); Hematocrit 38.6 % (33.0-51.0); Hemoglobin 12.7 g/dL (11.5-16.0); IMMATURE GRAN ABSOLUTE AUTO 0.01 K/mm3 (0.00-0.10); IMMATURE GRAN PERCENT AUTO 0 % (0-1); LYMPHOCYTES ABSOLUTE AUTO 3.01 K/mm3 (0.84-5.20); LYMPHOCYTES PERCENT AUTO 35 % (21-46); MONOCYTES ABSOLUTE AUTO 0.52 K/mm3 (0.16-1.47); MONOCYTES PERCENT AUTO 6 % (4-13); Mean Corpuscular HGB 29.8 pg (26.0-34.0); Mean Corpuscular HGB Conc 32.9 g/dL (31.5-36.5); Mean Corpuscular Volume 91 fL (80-100); Mean Platelet Volume 10.5 fL (9.1-12.4); NEUTROPHILS ABSOLUTE AUTO 4.83 K/mm3 (1.96-9.15); NEUTROPHILS PERCENT AUTO 57 % (41-73); Platelet Count 289 K/mm3 (150-400); RDW Coefficient Variation 12.9 % (11.7-14.2); RDW Standard Deviation 42.6 fL (35.1-46.3); Red Blood Cell Count 4.26 M/mm3 (3.80-5.20); White Blood Cell Count 8.53 K/mm3 (4.00-11.30)
[2020-03-21 20:24] LABS: Alanine Aminotransfer (ALT/SGP 28 U/L (12-78); Albumin, Blood 3.7 g/dL (3.4-5.0); Alk Phos 54 U/L (50-136); Anion Gap 5 mmol/L (6-16); Aspartate Aminotrans (AST/SGOT 16 U/L (12-37); Bilirubin, Total 0.5 mg/dL (0.1-1.0); Blood Urea Nitrogen 17 mg/dL (8-24); Bun/Creatinine Ratio 22.1 (12.0-20.0); CO2, Blood 26 mmol/L (21-32); Calcium, Blood 8.4 mg/dL (8.5-10.1); Chloride, Blood 108 mmol/L (98-108); Creatinine, Blood 0.77 mg/dL (0.40-1.00); Globulin, Blood 3.7 g/dL (2.2-4.0); Glomerular Filtration Rate >60 (60-); Glucose, Blood 82 mg/dL (70-99); Potassium, Blood 3.8 mmol/L (3.5-5.5); Sodium, Blood 139 mmol/L (136-145); Total Protein, Blood 7.4 g/dL (6.4-8.2)
[2020-03-23 07:09] LABS: HBSAG SCREEN Negative (Negative)
[2020-03-23 09:09] LABS: HIV SCREEN 4TH GENERATION WRFX Non Reactive (Non Reactive)
== END ==
LOC: RAD SHORT 17:49 → LAB SHORT 17:49 → LAB 17:49
PROVIDERS: Physician Assistant
DX: Z11.59 Encounter for screening for other viral diseases (principal); E61.1 Iron deficiency; K50.80 Crohn's disease of both small and large intestine without complications; Z72.51 High risk heterosexual behavior
CPT/HCPCS: 80053; 82728; 83540; 83550; 85025; 86803; 87340; 87389

== ENCOUNTER → 2020-06-13 | Outpatient (CLI) | payer OTHER ==
[~2020-06-13] MED LIST changes: -ENTYVIO300 MG; +ENTYVIO300 MG IV; +ERGO50000 PO; +Levaquin750 MG PO; +SUMA25 PO; +TOPI25 PO
[2020-06-13 18:29] LABS: Test Name 3180
[2020-06-25 12:11] LABS: Performing Lab PROMETHEUS
== END | disposition home or self-care (01) ==
LOC: LAB PROM 18:27
PROVIDERS: Internal Medicine Gastroenterology
DX: K50.80 Crohn's disease of both small and large intestine without complications (principal)

== ENCOUNTER → 2020-06-13 | Outpatient (CLI) | payer OTHER ==
[~2020-06-13] MED LIST changes: +DAPTOMYCIN IV; +VANCOMYCIN50 MG/1 ML IV
== END | disposition home or self-care (01) ==
LOC: LAB SHORT 18:44 → LAB 18:44
DX: R50.9 Fever, unspecified (principal)
CPT/HCPCS: 87040

== ENCOUNTER 2020-06-16 00:13 | Emergency (ER) | payer OTHER ==
[~2020-06-16] VITALS: Ht 167.6 cm; Wt 61.4 kg
[~2020-06-16 00:13] MED LIST changes: -DAPTOMYCIN IV; +ENTYVIO300 MG; -ENTYVIO300 MG IV; -ERGO50000 PO; -Levaquin750 MG PO; -SUMA25 PO; -TOPI25 PO; -VANCOMYCIN50 MG/1 ML IV
[2020-06-16] MEDS ORDERED: Levaquin750 MG PO (02:57)
== END 2020-06-16 04:50 | disposition home or self-care (01) ==
LOC: ER 00:13
DX: R78.81 Bacteremia (principal); Z88.6 Allergy status to analgesic agent; Z88.8 Allergy status to other drugs, medicaments and biological substances; Z88.5 Allergy status to narcotic agent; Z91.030 Bee allergy status; Z79.899 Other long term (current) drug therapy; Z87.891 Personal history of nicotine dependence
CPT/HCPCS: 96372; 99281; J0696; J2543

== ENCOUNTER 2020-06-25 10:39 | Observation (INO) | payer OTHER ==
[~2020-06-25] VITALS: Ht 167.6 cm; Wt 60.3 kg
[~2020-06-25 10:39] MED LIST changes: -ENTYVIO300 MG; +ENTYVIO300 MG IV; +Levaquin750 MG PO
[2020-06-25 13:12] LABS: BASOPHILS ABSOLUTE AUTO 0.04 K/mm3 (0.00-0.23); BASOPHILS PERCENT AUTO 1 % (0-2); EOSINOPHILS ABSOLUTE AUTO 0.13 K/mm3 (0.00-0.68); EOSINOPHILS PERCENT AUTO 2 % (0-6); Hematocrit 45.9 % (33.0-51.0); Hemoglobin 14.9 g/dL (11.5-16.0); IMMATURE GRAN ABSOLUTE AUTO 0.01 K/mm3 (0.00-0.10); IMMATURE GRAN PERCENT AUTO 0 % (0-1); LYMPHOCYTES ABSOLUTE AUTO 3.13 K/mm3 (0.84-5.20); LYMPHOCYTES PERCENT AUTO 39 % (21-46); MONOCYTES ABSOLUTE AUTO 0.43 K/mm3 (0.16-1.47); MONOCYTES PERCENT AUTO 5 % (4-13); Mean Corpuscular HGB 29.3 pg (26.0-34.0); Mean Corpuscular HGB Conc 32.5 g/dL (31.5-36.5); Mean Corpuscular Volume 90 fL (80-100); Mean Platelet Volume 9.8 fL (9.1-12.4); NEUTROPHILS ABSOLUTE AUTO 4.26 K/mm3 (1.96-9.15); NEUTROPHILS PERCENT AUTO 53 % (41-73); Platelet Count 338 K/mm3 (150-400); RDW Coefficient Variation 12.8 % (11.7-14.2); RDW Standard Deviation 42.3 fL (35.1-46.3); Red Blood Cell Count 5.08 M/mm3 (3.80-5.20)
[2020-06-25 13:37] LABS: Alanine Aminotransfer (ALT/SGP 44 U/L (12-78); Albumin/Globulin Ratio 0.8 (0.8-1.8); Alk Phos 65 U/L (50-136); Anion Gap 4 mmol/L (6-16); Aspartate Aminotrans (AST/SGOT 17 U/L (12-37); Bilirubin, Total 0.2 mg/dL (0.1-1.0); Blood Urea Nitrogen 13 mg/dL (8-24); Bun/Creatinine Ratio 17.9 (12.0-20.0); CO2, Blood 26 mmol/L (21-32); Calcium, Blood 9.2 mg/dL (8.5-10.1); Chloride, Blood 108 mmol/L (98-108); Creatinine, Blood 0.73 mg/dL (0.40-1.00); Globulin, Blood 4.8 g/dL (2.2-4.0); Glomerular Filtration Rate >60 (60-); Glucose, Blood 71 mg/dL (70-99); Potassium, Blood 4.1 mmol/L (3.5-5.5); Sodium, Blood 138 mmol/L (136-145); Total Protein, Blood 8.8 g/dL (6.4-8.2)
--- NOTE | 2020-06-26 04:30 | NUR ---
SUMMARY PT ARRIVED TO FLOOR C/O BILAT RIB PAIN. PT MEDIPORT SITE APPEARS UNREMARKABLE. PT MEDICATE W/ PO PAIN MED. PT WAS GIVEN IV VANCO THROUGH IV IN HER THUMB. PT STATES SHE WAS INFORMED THAT SHE WOULD BE GETTING PICC ACCESS 06/27. PT STATES SHE HAS TO BE SEDATED TO HAVE PICC PLACED. NO ISSUES NOTED W/ VANCO GOING INTO THUMB IV. PT STATES SHE WILL REFUSE FURTHER IV ATTEMPTS IF THUMB IV FAILS. PT RESPONDED WELL TO PO PAIN MED AND HAS SLEPT WELL. PT CURRENTLY SLEEPING AND IN NO DISTRESS. CALL LIGHT IN REACH
[2020-06-26 10:09] LABS: BASOPHILS ABSOLUTE AUTO 0.04 K/mm3 (0.00-0.23); BASOPHILS PERCENT AUTO 1 % (0-2); EOSINOPHILS ABSOLUTE AUTO 0.09 K/mm3 (0.00-0.68); EOSINOPHILS PERCENT AUTO 1 % (0-6); Hematocrit 39.8 % (33.0-51.0); IMMATURE GRAN ABSOLUTE AUTO 0.02 K/mm3 (0.00-0.10); IMMATURE GRAN PERCENT AUTO 0 % (0-1); LYMPHOCYTES ABSOLUTE AUTO 2.13 K/mm3 (0.84-5.20); LYMPHOCYTES PERCENT AUTO 26 % (21-46); MONOCYTES ABSOLUTE AUTO 0.51 K/mm3 (0.16-1.47); MONOCYTES PERCENT AUTO 6 % (4-13); Mean Corpuscular HGB 29.2 pg (26.0-34.0); Mean Corpuscular HGB Conc 32.7 g/dL (31.5-36.5); Mean Corpuscular Volume 89 fL (80-100); Mean Platelet Volume 10.1 fL (9.1-12.4); NEUTROPHILS ABSOLUTE AUTO 5.34 K/mm3 (1.96-9.15); NEUTROPHILS PERCENT AUTO 66 % (41-73); Platelet Count 285 K/mm3 (150-400); RDW Coefficient Variation 12.9 % (11.7-14.2); RDW Standard Deviation 42.2 fL (35.1-46.3); Red Blood Cell Count 4.45 M/mm3 (3.80-5.20); White Blood Cell Count 8.13 K/mm3 (4.00-11.30)
[2020-06-26 10:23] LABS: Anion Gap 5 mmol/L (6-16); Blood Urea Nitrogen 12 mg/dL (8-24); Bun/Creatinine Ratio 17.9 (12.0-20.0); CO2, Blood 24 mmol/L (21-32); Calcium, Blood 8.3 mg/dL (8.5-10.1); Chloride, Blood 109 mmol/L (98-108); Creatinine, Blood 0.67 mg/dL (0.40-1.00); Glomerular Filtration Rate >60 (60-); Glucose, Blood 93 mg/dL (70-99); Potassium, Blood 3.8 mmol/L (3.5-5.5); Sodium, Blood 138 mmol/L (136-145)
--- NOTE | 2020-06-26 17:42 | NUR ---
NO ACUTE CHANGES. PT HAS SLEPT MOST OF THE SHIFT. SHE WENT FOR A WALK THIS MORNING AROUND 0800 AND WHEN SHE RETURNED SLEPT VERY SOUNDLY UNTIL 1530. SHE WOKE AND WENT OUTSIDE ONCE AGAIN WITH HER MALE FRIEND AND IS NOW SLEEPING SOUNDLY. WONT WAKE FOR DINNER. POWER GLIDE PLACED TODAY AND MEDS GIVEN PER ORDER.
[2020-06-26 21:55] LABS: Vancomycin, Trough 13.9 ug/mL (5.0-10.0)
--- NOTE | 2020-06-27 04:03 | NUR ---
SHIFT SUMMARY NO ACUTE CHANGES T/O SHIFT, A&Ox4, CALM & COOPERATIVE. PG FLUSHES AND DRAWS BLOOD WELL. PT REPORTED PAIN OF THE RIBS BILATERALY. PAIN WAS TREATED PER EMAR. PT IS CURRENTLY SLEEPING WITH NO SIGNS OF DISTRESS. CALL LIGHT IS WITHIN REACH AND PT IS INDEPENDENT IN THE ROOM.
--- NOTE | 2020-06-27 18:25 | NUR ---
SHIFT SUMMARY PT A/O X4 AND IND IN THE ROOM. PT LEAVES THE ROOM OFTEN TO WALK. PT CAN BE ANXIOUS AT TIMES. DISCUSSED W/ TODAY; GOING TO TRY TO SALVAGE MEDIPORT IF POSSIBLE. PORT ACCESSED; BEGIN VANCO LUMEN LOCK SOLUTION W/HEPARIN TO DWELL IN PORT FOR 24 HRS THEN REPLACED DAILY. PT REPORTS NUMBNESS IN L ARM. ULTRASOUND TO L ARM TODAY. VSS; NO FEVERS THIS SHIFT.
--- NOTE | 2020-06-27 22:49 | NUR ---
REASSESSED PT PAIN AND COMPLETED NURSE ROUNDING @ APPROX 2014. PT WAS SITTING AT EDGE OF BED ON PHONE WITH WHO I SUSPECTED TO BE , SHE WAS UPSET ABOUT PULLING MONEY OUT OF AN ACCOUNT. WENT TO CHECK ON PT AGAIN FOR NURSE ROUNDING @ 2199 AND PT WAS NOT IN ROOM NOR WERE ANY OF HER BELONGINGS. TALKED WITH CHARGE NURSE AND CALLED SECURITY TO CHECK CAMERAS TO SEE IF/WHEN PT LEFT. PT LEFT AMA @ 2050 IN A [place]OWER [place]. CHARGE NURSE WAS INFORMED. CALLING VOLLEYBALL ASSISTANT COACH HOSPITALIST WELL TO INFORM THEM.
[2020-06-28] MEDS ORDERED: SUMA25 PO (19:47)
[2020-06-28] MEDS ORDERED: TOPI25 PO (19:47)
[2020-07-01] MEDS ORDERED: ERGO50000 PO (13:48)
== END 2020-06-27 20:51 | disposition left against medical advice (07) ==
LOC: ER 10:39 → MEDS 10:40
PROVIDERS: Physician Assistant; ADMIT Student in an Organized Health Care Education/Training Program
DX: R50.9 Fever, unspecified (principal); G92 Toxic encephalopathy; T42.4X5A Adverse effect of benzodiazepines, initial encounter; M79.7 Fibromyalgia; G43.909 Migraine, unspecified, not intractable, without status migrainosus; G40.909 Epilepsy, unspecified, not intractable, without status epilepticus; I73.00 Raynaud's syndrome without gangrene; Z79.2 Long term (current) use of antibiotics; Z79.899 Other long term (current) drug therapy; Z88.1 Allergy status to other antibiotic agents; Z88.5 Allergy status to narcotic agent; Z88.6 Allergy status to analgesic agent; Z88.8 Allergy status to other drugs, medicaments and biological substances; Z91.038 Other insect allergy status; Z87.891 Personal history of nicotine dependence; Z23 Encounter for immunization
CPT/HCPCS: 36415; 71046; 80048; 80053; 80202; 83605; 85025; 87040; 93971; 96374; 99285-25; C1751; G0378; J0878; J1642; J1644; J2060; J2405; J3370; J7050

== ENCOUNTER 2020-06-28 19:13 | Observation (INO) | payer OTHER ==
[~2020-06-28] VITALS: Ht 167.6 cm; Wt 60.3 kg
[2020-06-28] MEDS ORDERED: SUMA25 PO ×2 (19:47)
[2020-06-28] MEDS ORDERED: TOPI25 PO ×2 (19:47)
[2020-06-28 23:39] LABS: BASOPHILS ABSOLUTE AUTO 0.03 K/mm3 (0.00-0.23); BASOPHILS PERCENT AUTO 1 % (0-2); EOSINOPHILS PERCENT AUTO 2 % (0-6); Hemoglobin 12.6 g/dL (11.5-16.0); IMMATURE GRAN ABSOLUTE AUTO 0.02 K/mm3 (0.00-0.10); IMMATURE GRAN PERCENT AUTO 0 % (0-1); LYMPHOCYTES PERCENT AUTO 40 % (21-46); MONOCYTES ABSOLUTE AUTO 0.34 K/mm3 (0.16-1.47); MONOCYTES PERCENT AUTO 5 % (4-13); Mean Corpuscular HGB 28.8 pg (26.0-34.0); Mean Corpuscular HGB Conc 32.3 g/dL (31.5-36.5); Mean Corpuscular Volume 89 fL (80-100); Mean Platelet Volume 9.8 fL (9.1-12.4); NEUTROPHILS ABSOLUTE AUTO 3.34 K/mm3 (1.96-9.15); NEUTROPHILS PERCENT AUTO 52 % (41-73); Platelet Count 343 K/mm3 (150-400); RDW Coefficient Variation 12.7 % (11.7-14.2); RDW Standard Deviation 41.7 fL (35.1-46.3); Red Blood Cell Count 4.38 M/mm3 (3.80-5.20); White Blood Cell Count 6.43 K/mm3 (4.00-11.30)
[2020-06-29 00:18] LABS: Alanine Aminotransfer (ALT/SGP 37 U/L (12-78); Albumin, Blood 3.3 g/dL (3.4-5.0); Albumin/Globulin Ratio 0.8 (0.8-1.8); Alk Phos 58 U/L (50-136); Anion Gap 4 mmol/L (6-16); Aspartate Aminotrans (AST/SGOT 19 U/L (12-37); Bilirubin, Total 0.2 mg/dL (0.1-1.0); Blood Urea Nitrogen 11 mg/dL (8-24); Bun/Creatinine Ratio 13.3 (12.0-20.0); CO2, Blood 27 mmol/L (21-32); Calcium, Blood 8.2 mg/dL (8.5-10.1); Chloride, Blood 110 mmol/L (98-108); Creatinine, Blood 0.83 mg/dL (0.40-1.00); Globulin, Blood 4.1 g/dL (2.2-4.0); Glomerular Filtration Rate >60 (60-); Glucose, Blood 95 mg/dL (70-99); Potassium, Blood 3.2 mmol/L (3.5-5.5); Sodium, Blood 141 mmol/L (136-145); Total Protein, Blood 7.4 g/dL (6.4-8.2)
--- NOTE | 2020-06-29 03:29 | NUR ---
PATIENT IS A NEW ADMIT FROM THE ED. ARRIVED VIA W/C AND INDEPENDENT TRANSFER TO BED. AXO X4. ON ROOM AIR. PATIENT ORIENTED TO ROOM AND CALL LIGHT SYSTEM. PATIENT REPORTS SHE LEFT AMA ON 06/27/2020. DENIES SOB AND N/V. REPORTS MIGRIANE COMING ON. CALL LIGHT IN REACH.
--- NOTE | 2020-06-29 04:39 | NUR ---
SHIFT SUMMARY PATIENT HAD NO ACUTE CHANGES. AXOX 4 AND INDEPENDENT IN ROOM. DENIES PAIN, SOB, AND N/V. VSS/AFEBRILE. MEDIPORT INTACT AND HEPARIN LOCKED. CEDS. IV ABX INFUSED. PARTNER IN ROOM ON ADMIT AND LEFT AFTER HOUR OR TWO. PATIENT REPORTS SHE LEFT AMA ON 06/27/20. WATCHED TV AFTER ADMIT. FOOD PROVIDED AND MIGRAINE REDUCED. CALL LIGHT IN REACH. BED IN LOWEST POSITION. WILL CONTINUE TO MONITOR UNTIL DAY SHIFT NURSE ASSUMES CARE.
--- NOTE | 2020-06-29 18:24 | NUR ---
SHIFT SUMMARY. A&OX4, INDEPENDENT IN ROOM, PLEASANT AND COOPERATIVE WITH CARE. PT DENIES SOB, N/V. PT REPORTS BILATERAL LOWER RIB PAIN THAT STARTED TWO WEEKS AGO 01/23, DENIES FALL OR OTHER TRAUMA. RECIEVED ORDERS FROM DR. PIERSON FOR TRAMODOL, PT REPORTS RIB PAIN HAS IMPROVED SINCE ADMINISTRATION OF TRAMODOL. PT IS AGREEABLE TO STAY HOSPITALIZED TILL RESULTS OF CUTLURES COME BACK. NO OTHER CHANGES OR CONCERNS.
--- NOTE | 2020-06-29 20:04 | NUR ---
PATIENT OUT OF ROOM AT THIS TIME. CAME BACK TO REPORT SHE IS GOING TO GET FOOD FROM [place].
--- NOTE | 2020-06-29 20:59 | NUR ---
BACK IN ROOM.
--- NOTE | 2020-06-30 03:21 | NUR ---
SHIFT SUMMARY PATIENT OUT OF ROOM MULTIPLE TIMES AND SECURITY REPORTING A MAN CAME OUT OF HER ROOM. SECURITY PRESENT WITH CHARGE NURSE TO MONITOR FOR AMA. PATIENT DID COME BACK AND INTO ROOM REPORTING SHE WENT TO [place] FOR FOOD. PATIENT COOPERATIVE REST OF SHIFT. AXOX 4 AND INDEPENDENT. CEDS GOING OUTSIDE. VSS/AFEBRILE. REPORTED FIBROMYALGIA PAIN AND ULTRAM 50 MG GIVEN PER EMAR. PATIENT REPORTED WARM PAD REDUCES PAIN AND ONE PROVIDED AND SETUP. DENIES SOB AND N/V. LIQUID POTASSIUM NEW ORDER AND GIVEN PER SCHEDULED EMAR. CALL LIGHT IN REACH. BED IN LOWEST POSITION. WILL CONTINUE TO MONITOR UNTIL DAY SHIFT NURSE ASSUMES CARE.
[2020-06-30 08:31] LABS: BASOPHILS ABSOLUTE AUTO 0.04 K/mm3 (0.00-0.23); BASOPHILS PERCENT AUTO 1 % (0-2); EOSINOPHILS ABSOLUTE AUTO 0.16 K/mm3 (0.00-0.68); EOSINOPHILS PERCENT AUTO 2 % (0-6); Hematocrit 37.9 % (33.0-51.0); Hemoglobin 12.4 g/dL (11.5-16.0); IMMATURE GRAN ABSOLUTE AUTO 0.02 K/mm3 (0.00-0.10); IMMATURE GRAN PERCENT AUTO 0 % (0-1); LYMPHOCYTES ABSOLUTE AUTO 3.12 K/mm3 (0.84-5.20); LYMPHOCYTES PERCENT AUTO 45 % (21-46); MONOCYTES ABSOLUTE AUTO 0.51 K/mm3 (0.16-1.47); MONOCYTES PERCENT AUTO 7 % (4-13); Mean Corpuscular HGB 29.8 pg (26.0-34.0); Mean Corpuscular HGB Conc 32.7 g/dL (31.5-36.5); Mean Corpuscular Volume 91 fL (80-100); Mean Platelet Volume 9.8 fL (9.1-12.4); NEUTROPHILS ABSOLUTE AUTO 3.14 K/mm3 (1.96-9.15); NEUTROPHILS PERCENT AUTO 45 % (41-73); Platelet Count 299 K/mm3 (150-400); RDW Coefficient Variation 12.9 % (11.7-14.2); RDW Standard Deviation 42.4 fL (35.1-46.3); Red Blood Cell Count 4.16 M/mm3 (3.80-5.20); White Blood Cell Count 6.99 K/mm3 (4.00-11.30)
[2020-06-30 08:47] LABS: Alanine Aminotransfer (ALT/SGP 42 U/L (12-78); Albumin, Blood 3.5 g/dL (3.4-5.0); Albumin/Globulin Ratio 0.9 (0.8-1.8); Alk Phos 56 U/L (50-136); Anion Gap 4 mmol/L (6-16); Aspartate Aminotrans (AST/SGOT 20 U/L (12-37); Bilirubin, Total 0.2 mg/dL (0.1-1.0); Blood Urea Nitrogen 13 mg/dL (8-24); Bun/Creatinine Ratio 17.1 (12.0-20.0); CO2, Blood 27 mmol/L (21-32); Calcium, Blood 8.5 mg/dL (8.5-10.1); Chloride, Blood 108 mmol/L (98-108); Creatinine, Blood 0.76 mg/dL (0.40-1.00); Globulin, Blood 4.1 g/dL (2.2-4.0); Glomerular Filtration Rate >60 (60-); Glucose, Blood 83 mg/dL (70-99); Sodium, Blood 139 mmol/L (136-145); Total Protein, Blood 7.6 g/dL (6.4-8.2)
[2020-06-30 11:51] LABS: CPK Creatine Kinase 53 U/L (26-193); Troponin I <0.015 ng/mL (0.000-0.040)
--- NOTE | 2020-06-30 17:40 | NUR ---
SHIFT SUMMARY. PT CONTINUES TO C/O OF BILATERAL LOWER RIB PAIN, DENIED THE NEED FOR PAIN MEDICATION. EKG OBTAINED, TROPONIN NEGATIVE. MEDIPORT DWELL REMOVED AND REPLACED THIS AM. NO NEW CHANGES OR CONCERNS.
--- NOTE | 2020-06-30 20:24 | NUR ---
PATIENT OUT OF ROOM
--- NOTE | 2020-06-30 21:32 | NUR ---
LAB REPORTS: GRAM NEGATIVE BACILLI. HOSPITALIST DR PRECIADO NOTIFIED AND REPORTS NO ORDERS.
--- NOTE | 2020-06-30 22:25 | NUR ---
PATIENT BACK IN ROOM REPORTING WANTS TO GET BETTER SLEEP TONIGHT. USING PHONE AT THIS TIME.
--- NOTE | 2020-07-01 03:33 | NUR ---
SHIFT SUMMARY PATIENT HAD NO ACUTE CHANGES OBSERVED. LAB REPORTED: GRAM NEGATIVE BACILLI AND HOSPITALIST DR PRECIADO NOTIFIED AND REPORTS NO NEW ORDERS. AXO X4 AND INDEPENDENT. CEDS AND GOES OUTSIDE T/O FIRST HALF OF SHIFT. DENIES SOB AND N/V. VSS/AFEBRILE. USES HEATING PAD FOR PAIN REDUCTION RELATED TO FIBROMYALGIA. MEDIPORT INTACT. REPORTED SHE WANTED TO GO TO SLEEP EARLIER. MELATONIN GIVEN PER SCHEDULE IN EMAR. VITAMIN D ADDED THIS SHIFT. CALL LIGHT IN REACH. BED IN LOWEST POSITION. WILL CONTINUE TO MONITOR UNTIL DAY SHIFT NURSE ASSUMES CARE.
--- NOTE | 2020-07-01 10:59 | NUR ---
SHE HAS BEEN SLEEPING ALL MORNING EXCEPT TO EAT BREAKFAST. HER FIBROMYALGIA PAIN IS AT LEVEL 5. NO NAUSEA, DIZZINESS OR SOB. JUST ROUNDED. HE WILL DISCHARGE HER IF OUTPT ANTIBIOTIC AND MEDIPORT TREATMENT CAN BE ARRANGED.
[2020-07-01] MEDS ORDERED: ERGO50000 PO ×2 (13:48)
--- NOTE | 2020-07-01 14:26 | NUR ---
DISCHARGED TO HOME AT 1400 WITH ALL BELONGINGS, INSTRUCTIONS AND INFORMATION ON FREE TRANSPORTATION DAILY TO THE [facility]. SHE IS FULLY AMBULATORY. NO FEVER. 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 SHE UNDERSTANDS THAT SHE HAS 1 RX AT [facility] AND SHE HAS AN APPT. AT 0930 TOMORROW AT THE [facility]. SHE ALSO HAS THEIR PHONE NUMBER.
== END 2020-07-01 14:05 | disposition home or self-care (01) ==
LOC: ER 19:13 → MEDS 19:14 → ENPENDDIS 07-01 13:50 → MEDS 07-01 14:05
PROVIDERS: Internal Medicine; Physician Assistant; ADMIT Internal Medicine
DX: T80.219A Unspecified infection due to central venous catheter, initial encounter (principal); K50.90 Crohn's disease, unspecified, without complications; E87.6 Hypokalemia; E55.9 Vitamin D deficiency, unspecified; R07.81 Pleurodynia; G40.909 Epilepsy, unspecified, not intractable, without status epilepticus; G43.909 Migraine, unspecified, not intractable, without status migrainosus; M79.7 Fibromyalgia; I73.00 Raynaud's syndrome without gangrene; F17.210 Nicotine dependence, cigarettes, uncomplicated; Z88.1 Allergy status to other antibiotic agents; Z88.5 Allergy status to narcotic agent; Z88.6 Allergy status to analgesic agent; Z88.8 Allergy status to other drugs, medicaments and biological substances; Z91.030 Bee allergy status; Z98.51 Tubal ligation status; Z23 Encounter for immunization; Z79.2 Long term (current) use of antibiotics; Z79.899 Other long term (current) drug therapy; Y84.0 Cardiac catheterization as the cause of abnormal reaction of the patient, or of later complication, without mention of misadventure at the time of the procedure
CPT/HCPCS: 80053; 82306; 82550; 83880; 84484; 85025; 93005; 93010; 96372; 99284; A9270; G0378; J0878; J1642; J1644; J1650; J3370

== ENCOUNTER 2020-07-02 00:09 | Day surgery (SDC) | payer OTHER ==
[~2020-07-02 00:09] MED LIST changes: +ERGO50000 PO; +SUMA25 PO; +TOPI25 PO
== END 2020-07-02 10:50 | disposition home or self-care (01) ==
LOC: ATC 00:09
DX: T80.219A Unspecified infection due to central venous catheter, initial encounter (principal); B99.9 Unspecified infectious disease; Z87.891 Personal history of nicotine dependence; Z88.5 Allergy status to narcotic agent; Z88.6 Allergy status to analgesic agent; Z88.1 Allergy status to other antibiotic agents; Z88.8 Allergy status to other drugs, medicaments and biological substances; Z91.038 Other insect allergy status; K50.90 Crohn's disease, unspecified, without complications; G43.909 Migraine, unspecified, not intractable, without status migrainosus; Z79.899 Other long term (current) drug therapy; E87.6 Hypokalemia
CPT/HCPCS: 96365; 96375; J0878; J1644; J3370

== ENCOUNTER 2020-07-03 00:54 | Day surgery (SDC) | payer OTHER ==
[2020-07-04] MEDS ORDERED: DAPTOMYCIN IV (10:49)
[2020-07-07] MEDS ORDERED: VANCOMYCIN50 MG/1 ML IV (11:08)
== END 2020-07-03 10:10 | disposition home or self-care (01) ==
LOC: ATC 00:54
DX: K50.80 Crohn's disease of both small and large intestine without complications (principal); F32.9 Major depressive disorder, single episode, unspecified; Z79.899 Other long term (current) drug therapy; Z87.891 Personal history of nicotine dependence
CPT/HCPCS: 96365; 96375; J0878; J1644; J3370

== ENCOUNTER 2020-07-04 07:22 | Day surgery (SDC) | payer OTHER ==
[2020-07-04] MEDS ORDERED: DAPTOMYCIN IV (10:49)
[2020-07-07] MEDS ORDERED: VANCOMYCIN50 MG/1 ML IV (11:08)
== END 2020-07-04 10:20 | disposition home or self-care (01) ==
LOC: ATC 07:22
DX: K50.80 Crohn's disease of both small and large intestine without complications (principal); F32.9 Major depressive disorder, single episode, unspecified; Z79.899 Other long term (current) drug therapy; Z87.891 Personal history of nicotine dependence
CPT/HCPCS: 96365; J0878; J1644; J3370

== ENCOUNTER 2020-07-05 00:36 | Day surgery (SDC) | payer OTHER ==
[~2020-07-05 00:36] MED LIST changes: +DAPTOMYCIN IV
[2020-07-07] MEDS ORDERED: VANCOMYCIN50 MG/1 ML IV (11:08)
== END 2020-07-05 10:35 | disposition home or self-care (01) ==
LOC: ATC 00:36
DX: K50.80 Crohn's disease of both small and large intestine without complications (principal); F32.9 Major depressive disorder, single episode, unspecified; Z79.899 Other long term (current) drug therapy; Z87.891 Personal history of nicotine dependence
CPT/HCPCS: J0878; J1644; J3370

== ENCOUNTER 2020-07-06 00:20 | Day surgery (SDC) | payer OTHER ==
[2020-07-07] MEDS ORDERED: VANCOMYCIN50 MG/1 ML IV (11:08)
== END 2020-07-06 11:45 | disposition home or self-care (01) ==
LOC: ATC 00:20
DX: K50.80 Crohn's disease of both small and large intestine without complications (principal); F32.9 Major depressive disorder, single episode, unspecified; Z79.899 Other long term (current) drug therapy; Z87.891 Personal history of nicotine dependence
CPT/HCPCS: J0878; J1644; J3370

== ENCOUNTER 2020-07-10 02:51 | Day surgery (SDC) | payer OTHER ==
[~2020-07-10 02:51] MED LIST changes: +VANCOMYCIN50 MG/1 ML IV
== END 2020-07-10 10:16 | disposition home or self-care (01) ==
LOC: ATC 02:51
DX: K50.80 Crohn's disease of both small and large intestine without complications (principal); E55.9 Vitamin D deficiency, unspecified; F32.9 Major depressive disorder, single episode, unspecified; G43.909 Migraine, unspecified, not intractable, without status migrainosus; M79.7 Fibromyalgia; G40.909 Epilepsy, unspecified, not intractable, without status epilepticus; Z79.2 Long term (current) use of antibiotics; Z87.891 Personal history of nicotine dependence; Z88.1 Allergy status to other antibiotic agents; Z88.5 Allergy status to narcotic agent; Z88.6 Allergy status to analgesic agent; Z88.8 Allergy status to other drugs, medicaments and biological substances; Z91.030 Bee allergy status
CPT/HCPCS: 96365; 96375; J0878; J1644; J3370

== ENCOUNTER 2020-07-11 10:29 | Day surgery (SDC) | payer OTHER | END 2020-07-11 11:03 | disposition home or self-care (01) | LOC: ATC 10:29 | DX: K50.80 Crohn's disease of both small and large intestine without complications (principal); Z79.899 Other long term (current) drug therapy; Z87.891 Personal history of nicotine dependence | CPT/HCPCS: 96365; 96375; J0878; J1644; J3370 ==

== ENCOUNTER 2020-07-12 00:38 | Day surgery (SDC) | payer OTHER | END 2020-07-12 11:25 | disposition home or self-care (01) | LOC: ATC 00:38 | DX: K50.80 Crohn's disease of both small and large intestine without complications (principal); Z79.899 Other long term (current) drug therapy; Z87.891 Personal history of nicotine dependence | CPT/HCPCS: J0878; J1644; J3370 ==

== ENCOUNTER 2020-07-13 09:35 | Day surgery (SDC) | payer OTHER | END 2020-07-13 11:03 | disposition home or self-care (01) | LOC: ATC 09:35 | DX: K50.80 Crohn's disease of both small and large intestine without complications (principal); Z79.899 Other long term (current) drug therapy; Z87.891 Personal history of nicotine dependence | CPT/HCPCS: J0878; J1644; J3370 ==

== ENCOUNTER 2020-07-14 01:47 | Day surgery (SDC) | payer OTHER | END 2020-07-14 10:55 | disposition home or self-care (01) | LOC: ATC 01:47 | DX: K50.80 Crohn's disease of both small and large intestine without complications (principal); Z79.899 Other long term (current) drug therapy; Z87.891 Personal history of nicotine dependence | CPT/HCPCS: J0878; J1644; J3370 ==

== ENCOUNTER 2020-07-15 00:20 | Day surgery (SDC) | payer OTHER | END 2020-07-15 11:00 | disposition home or self-care (01) | LOC: ATC 00:20 | DX: K50.80 Crohn's disease of both small and large intestine without complications (principal); F32.9 Major depressive disorder, single episode, unspecified; G43.909 Migraine, unspecified, not intractable, without status migrainosus; M79.7 Fibromyalgia; I73.00 Raynaud's syndrome without gangrene; G40.909 Epilepsy, unspecified, not intractable, without status epilepticus; Z90.49 Acquired absence of other specified parts of digestive tract; Z79.2 Long term (current) use of antibiotics; Z79.899 Other long term (current) drug therapy; Z87.891 Personal history of nicotine dependence; Z88.1 Allergy status to other antibiotic agents; Z88.5 Allergy status to narcotic agent; Z88.8 Allergy status to other drugs, medicaments and biological substances; Z91.030 Bee allergy status | CPT/HCPCS: J0878; J1644; J3370 ==

== ENCOUNTER 2020-07-22 00:10 | Day surgery (SDC) | payer OTHER ==
[2020-07-22 12:28] LABS: BASOPHILS ABSOLUTE AUTO 0.04 K/mm3 (0.00-0.23); BASOPHILS PERCENT AUTO 1 % (0-2); EOSINOPHILS ABSOLUTE AUTO 0.11 K/mm3 (0.00-0.68); EOSINOPHILS PERCENT AUTO 2 % (0-6); Hematocrit 38.2 % (33.0-51.0); Hemoglobin 12.6 g/dL (11.5-16.0); IMMATURE GRAN ABSOLUTE AUTO 0.02 K/mm3 (0.00-0.10); IMMATURE GRAN PERCENT AUTO 0 % (0-1); LYMPHOCYTES ABSOLUTE AUTO 2.65 K/mm3 (0.84-5.20); LYMPHOCYTES PERCENT AUTO 35 % (21-46); MONOCYTES ABSOLUTE AUTO 0.38 K/mm3 (0.16-1.47); MONOCYTES PERCENT AUTO 5 % (4-13); Mean Corpuscular HGB 29.5 pg (26.0-34.0); Mean Corpuscular Volume 90 fL (80-100); Mean Platelet Volume 9.9 fL (9.1-12.4); NEUTROPHILS ABSOLUTE AUTO 4.35 K/mm3 (1.96-9.15); NEUTROPHILS PERCENT AUTO 58 % (41-73); Platelet Count 315 K/mm3 (150-400); RDW Coefficient Variation 12.9 % (11.7-14.2); RDW Standard Deviation 42.3 fL (35.1-46.3); Red Blood Cell Count 4.27 M/mm3 (3.80-5.20); White Blood Cell Count 7.55 K/mm3 (4.00-11.30)
[2020-07-22 12:45] LABS: Anion Gap 5 mmol/L (6-16); Blood Urea Nitrogen 14 mg/dL (8-24); Bun/Creatinine Ratio 16.3 (12.0-20.0); CO2, Blood 27 mmol/L (21-32); Calcium, Blood 8.6 mg/dL (8.5-10.1); Chloride, Blood 109 mmol/L (98-108); Creatinine, Blood 0.86 mg/dL (0.40-1.00); Glomerular Filtration Rate >60 (60-); Glucose, Blood 87 mg/dL (70-99); Potassium, Blood 3.9 mmol/L (3.5-5.5); Sodium, Blood 141 mmol/L (136-145)
== END 2020-07-22 12:20 | disposition home or self-care (01) ==
LOC: ATC 00:10
PROVIDERS: Physician Assistant
DX: T82.7XXA Infection and inflammatory reaction due to other cardiac and vascular devices, implants and grafts, initial encounter (principal); R78.81 Bacteremia; G43.909 Migraine, unspecified, not intractable, without status migrainosus; M79.7 Fibromyalgia; I73.00 Raynaud's syndrome without gangrene; G40.909 Epilepsy, unspecified, not intractable, without status epilepticus; F32.9 Major depressive disorder, single episode, unspecified; Z90.49 Acquired absence of other specified parts of digestive tract; Z87.891 Personal history of nicotine dependence; Z88.5 Allergy status to narcotic agent; Z88.8 Allergy status to other drugs, medicaments and biological substances; Z91.030 Bee allergy status; Y83.2 Surgical operation with anastomosis, bypass or graft as the cause of abnormal reaction of the patient, or of later complication, without mention of misadventure at the time of the procedure
CPT/HCPCS: 36591; 80048; 85025; J1642

== ENCOUNTER 2020-07-24 13:27 | Day surgery (SDC) | payer OTHER ==
--- NOTE | 2020-07-24 15:19 | NUR ---
POWERGLIDE DRESSING CHANGED ON WEDNESDAY. PT REPORTS DISCOMFORT UNDER THE EDGE OF THE SECUREMENT DEVICE. LINE FLUSHES WITHOUT DISCOMFORT. INSERTION SITE WITHOUT S/S OF INFECTION. STERILE DSG CHANGE COMPLETED. POLYMEM DSG PLACED UNDER SECUREMENT DEVICE AFTER SKIN PREP APPLIED. TEGADERM CHG AND TRANSPARENT DRESSINGS APPLIED. PT REPORTS NO FURTHER DISCOMFORT AFTER DRESSING CHANGED.
== END 2020-07-24 15:05 | disposition home or self-care (01) ==
LOC: ATC 13:27
DX: Z48.00 Encounter for change or removal of nonsurgical wound dressing (principal); K50.80 Crohn's disease of both small and large intestine without complications; F32.9 Major depressive disorder, single episode, unspecified; G43.909 Migraine, unspecified, not intractable, without status migrainosus; M79.7 Fibromyalgia; I73.00 Raynaud's syndrome without gangrene; E55.9 Vitamin D deficiency, unspecified; G40.909 Epilepsy, unspecified, not intractable, without status epilepticus; Z87.891 Personal history of nicotine dependence; Z79.52 Long term (current) use of systemic steroids; Z79.899 Other long term (current) drug therapy; Z90.49 Acquired absence of other specified parts of digestive tract; Z88.5 Allergy status to narcotic agent; Z88.6 Allergy status to analgesic agent; Z88.8 Allergy status to other drugs, medicaments and biological substances; Z91.038 Other insect allergy status
CPT/HCPCS: 99211

== ENCOUNTER 2020-07-31 15:11 | Day surgery (SDC) | payer OTHER | END 2020-07-31 15:21 | disposition home or self-care (01) | LOC: ATC 15:11 | DX: Z45.2 Encounter for adjustment and management of vascular access device (principal); T80.211D Bloodstream infection due to central venous catheter, subsequent encounter; B99.9 Unspecified infectious disease; G43.909 Migraine, unspecified, not intractable, without status migrainosus; M79.7 Fibromyalgia; G40.909 Epilepsy, unspecified, not intractable, without status epilepticus; F32.9 Major depressive disorder, single episode, unspecified; Z79.899 Other long term (current) drug therapy; Z87.891 Personal history of nicotine dependence; Z88.5 Allergy status to narcotic agent; Z88.8 Allergy status to other drugs, medicaments and biological substances; Y83.1 Surgical operation with implant of artificial internal device as the cause of abnormal reaction of the patient, or of later complication, without mention of misadventure at the time of the procedure | CPT/HCPCS: 99211 ==

== ENCOUNTER 2020-08-19 00:34 | Day surgery (SDC) | payer OTHER | END 2020-08-19 12:03 | disposition home or self-care (01) | LOC: ATC 00:34 | DX: K50.80 Crohn's disease of both small and large intestine without complications (principal); G43.909 Migraine, unspecified, not intractable, without status migrainosus; G40.909 Epilepsy, unspecified, not intractable, without status epilepticus; F32.9 Major depressive disorder, single episode, unspecified; M79.7 Fibromyalgia; Z79.891 Long term (current) use of opiate analgesic; Z79.899 Other long term (current) drug therapy; Z87.891 Personal history of nicotine dependence; Z88.5 Allergy status to narcotic agent; Z88.6 Allergy status to analgesic agent; Z88.8 Allergy status to other drugs, medicaments and biological substances; Z91.030 Bee allergy status; Z20.828 Contact with and (suspected) exposure to other viral communicable diseases | CPT/HCPCS: A9270; J1642; J3380; J7050; Q0163 ==

== ENCOUNTER 2020-09-20 01:55 | Day surgery (SDC) | payer OTHER | END 2020-09-20 11:16 | disposition home or self-care (01) | LOC: ATC 01:55 | DX: K50.80 Crohn's disease of both small and large intestine without complications (principal); G40.909 Epilepsy, unspecified, not intractable, without status epilepticus; Z87.891 Personal history of nicotine dependence; Z86.39 Personal history of other endocrine, nutritional and metabolic disease; Z86.14 Personal history of Methicillin resistant Staphylococcus aureus infection | CPT/HCPCS: 96523; J1642 ==

== ENCOUNTER 2020-10-14 00:42 | Day surgery (SDC) | payer OTHER | END 2020-10-14 14:46 | disposition home or self-care (01) | LOC: ATC 00:42 | DX: K50.80 Crohn's disease of both small and large intestine without complications (principal); G43.909 Migraine, unspecified, not intractable, without status migrainosus; M79.7 Fibromyalgia; G40.909 Epilepsy, unspecified, not intractable, without status epilepticus; E55.9 Vitamin D deficiency, unspecified; F15.11 Other stimulant abuse, in remission; F11.11 Opioid abuse, in remission; F13.11 Sedative, hypnotic or anxiolytic abuse, in remission; Z88.8 Allergy status to other drugs, medicaments and biological substances; Z88.1 Allergy status to other antibiotic agents; Z88.6 Allergy status to analgesic agent; Z88.5 Allergy status to narcotic agent; Z86.14 Personal history of Methicillin resistant Staphylococcus aureus infection; Z87.891 Personal history of nicotine dependence; Z87.19 Personal history of other diseases of the digestive system; Z90.49 Acquired absence of other specified parts of digestive tract; Z87.2 Personal history of diseases of the skin and subcutaneous tissue; Z79.899 Other long term (current) drug therapy | CPT/HCPCS: 96365; J1642; J3380; J7050 ==

== ENCOUNTER 2020-11-19 00:46 | Day surgery (SDC) | payer OTHER | END 2020-11-19 09:37 | disposition home or self-care (01) | LOC: ATC 00:46 | DX: K50.812 Crohn's disease of both small and large intestine with intestinal obstruction (principal); Z87.891 Personal history of nicotine dependence | CPT/HCPCS: 96523; J1642 ==

== ENCOUNTER 2020-12-18 00:57 | Day surgery (SDC) | payer OTHER | END 2020-12-18 15:48 | disposition home or self-care (01) | LOC: ATC 00:57 | DX: K50.812 Crohn's disease of both small and large intestine with intestinal obstruction (principal); K59.09 Other constipation; F32.9 Major depressive disorder, single episode, unspecified; F41.9 Anxiety disorder, unspecified | CPT/HCPCS: 96365; J1642; J3380; J7050 ==

== ENCOUNTER 2021-01-22 15:06 | Day surgery (SDC) | payer OTHER | END 2021-01-22 15:36 | disposition home or self-care (01) | LOC: ATC 15:06 | DX: Z45.2 Encounter for adjustment and management of vascular access device (principal); K50.812 Crohn's disease of both small and large intestine with intestinal obstruction; I73.00 Raynaud's syndrome without gangrene; E55.9 Vitamin D deficiency, unspecified; F17.210 Nicotine dependence, cigarettes, uncomplicated; F32.9 Major depressive disorder, single episode, unspecified | CPT/HCPCS: 96523; J1642 ==

== ENCOUNTER → 2021-04-29 | Outpatient (CLI) | payer OTHER | LOC: LAB 13:12 → LAB SHORT 13:12 | DX: R32 Unspecified urinary incontinence (principal); R35.0 Frequency of micturition; R39.15 Urgency of urination | CPT/HCPCS: 87077; 87086; 87186 ==

== ENCOUNTER 2021-05-26 02:48 | Day surgery (SDC) | payer OTHER ==
[~2021-05-26] VITALS: Wt 61.1 kg
== END 2021-05-26 15:08 | disposition home or self-care (01) ==
LOC: ATC 02:48
DX: K50.80 Crohn's disease of both small and large intestine without complications (principal)
CPT/HCPCS: 96365; J1642; J3380; J7050

== ENCOUNTER 2021-06-27 04:28 | Day surgery (SDC) | payer OTHER | END 2021-06-27 16:50 | disposition home or self-care (01) | LOC: ATC 04:28 | DX: K50.812 Crohn's disease of both small and large intestine with intestinal obstruction (principal); K59.09 Other constipation; G43.909 Migraine, unspecified, not intractable, without status migrainosus; G40.909 Epilepsy, unspecified, not intractable, without status epilepticus; F17.210 Nicotine dependence, cigarettes, uncomplicated; Z79.899 Other long term (current) drug therapy; Z87.11 Personal history of peptic ulcer disease; Z88.8 Allergy status to other drugs, medicaments and biological substances; Z88.6 Allergy status to analgesic agent; Z88.5 Allergy status to narcotic agent; Z86.14 Personal history of Methicillin resistant Staphylococcus aureus infection; Z90.49 Acquired absence of other specified parts of digestive tract | CPT/HCPCS: 96523; J1642 ==

== ENCOUNTER 2021-07-23 00:13 | Day surgery (SDC) | payer OTHER ==
[~2021-07-23] VITALS: Wt 61.6 kg
== END 2021-07-23 15:40 | disposition home or self-care (01) ==
LOC: ATC 00:13
DX: K50.80 Crohn's disease of both small and large intestine without complications (principal); G40.909 Epilepsy, unspecified, not intractable, without status epilepticus
CPT/HCPCS: J1642; J3380; J7050

== ENCOUNTER 2021-07-28 12:12 | Emergency (ER) | payer OTHER ==
[~2021-07-28] VITALS: Ht 167.6 cm; Wt 60.8 kg
== END 2021-07-28 14:38 | disposition home or self-care (01) ==
LOC: ER 12:12
DX: M79.89 Other specified soft tissue disorders (principal); F17.210 Nicotine dependence, cigarettes, uncomplicated; Z88.5 Allergy status to narcotic agent; Z91.030 Bee allergy status; Z88.8 Allergy status to other drugs, medicaments and biological substances; Z88.6 Allergy status to analgesic agent; Z79.899 Other long term (current) drug therapy; G40.909 Epilepsy, unspecified, not intractable, without status epilepticus
CPT/HCPCS: 93931; 99283-25

== ENCOUNTER 2021-09-24 00:23 | Day surgery (SDC) | payer OTHER | END 2021-09-24 15:42 | disposition home or self-care (01) | LOC: ATC 00:23 | DX: K50.80 Crohn's disease of both small and large intestine without complications (principal) | CPT/HCPCS: J1642; J3380; J7050 ==

== ENCOUNTER 2021-10-28 05:03 | Day surgery (SDC) | payer OTHER | END 2021-10-28 14:35 | disposition home or self-care (01) | LOC: ATC 05:03 | DX: Z45.2 Encounter for adjustment and management of vascular access device (principal); K50.812 Crohn's disease of both small and large intestine with intestinal obstruction; F17.210 Nicotine dependence, cigarettes, uncomplicated; F32.A Depression, unspecified; F41.9 Anxiety disorder, unspecified; Z87.19 Personal history of other diseases of the digestive system; Z86.14 Personal history of Methicillin resistant Staphylococcus aureus infection; Z88.6 Allergy status to analgesic agent; Z88.5 Allergy status to narcotic agent; Z88.8 Allergy status to other drugs, medicaments and biological substances | CPT/HCPCS: 96523; J1642 ==

== ENCOUNTER 2021-12-04 01:03 | Day surgery (SDC) | payer OTHER | END 2021-12-04 16:02 | disposition home or self-care (01) | LOC: ATC 01:03 | DX: K50.812 Crohn's disease of both small and large intestine with intestinal obstruction (principal); F17.210 Nicotine dependence, cigarettes, uncomplicated; F17.290 Nicotine dependence, other tobacco product, uncomplicated; Z88.3 Allergy status to other anti-infective agents; Z88.8 Allergy status to other drugs, medicaments and biological substances; Z88.5 Allergy status to narcotic agent | CPT/HCPCS: 96365; J1642; J3380; J7050 ==

== ENCOUNTER 2021-12-30 08:46 | Day surgery (SDC) | payer OTHER | END 2021-12-30 15:44 | disposition home or self-care (01) | LOC: ATC 08:46 | DX: Z45.2 Encounter for adjustment and management of vascular access device (principal); K50.812 Crohn's disease of both small and large intestine with intestinal obstruction; Z90.49 Acquired absence of other specified parts of digestive tract; Z79.899 Other long term (current) drug therapy | CPT/HCPCS: 96523; J1642 ==

== ENCOUNTER 2022-01-29 01:35 | Day surgery (SDC) | payer OTHER ==
[2022-01-29 15:51] LABS: BASOPHILS ABSOLUTE AUTO 0.05 K/mm3 (0.00-0.23); BASOPHILS PERCENT AUTO 1 % (0-2); EOSINOPHILS ABSOLUTE AUTO 0.18 K/mm3 (0.00-0.68); EOSINOPHILS PERCENT AUTO 3 % (0-6); Hematocrit 38.1 % (33.0-51.0); Hemoglobin 12.9 g/dL (11.5-16.0); IMMATURE GRAN ABSOLUTE AUTO 0.01 K/mm3 (0.00-0.10); IMMATURE GRAN PERCENT AUTO 0 % (0-1); LYMPHOCYTES ABSOLUTE AUTO 2.39 K/mm3 (0.84-5.20); LYMPHOCYTES PERCENT AUTO 40 % (21-46); MONOCYTES ABSOLUTE AUTO 0.53 K/mm3 (0.16-1.47); MONOCYTES PERCENT AUTO 9 % (4-13); Mean Corpuscular HGB 30.2 pg (26.0-34.0); Mean Corpuscular HGB Conc 33.9 g/dL (31.5-36.5); Mean Corpuscular Volume 89 fL (80-100); Mean Platelet Volume 10.7 fL (9.1-12.4); NEUTROPHILS ABSOLUTE AUTO 2.76 K/mm3 (1.96-9.15); NEUTROPHILS PERCENT AUTO 47 % (41-73); Platelet Count 307 K/mm3 (150-400); RDW Coefficient Variation 12.8 % (11.7-14.2); RDW Standard Deviation 42.2 fL (35.1-46.3); Red Blood Cell Count 4.27 M/mm3 (3.80-5.20); White Blood Cell Count 5.92 K/mm3 (4.00-11.30)
[2022-01-29 16:25] LABS: Albumin, Blood 3.2 g/dL (3.4-5.0); Albumin/Globulin Ratio 0.8 (0.8-1.8); Bilirubin, Total 0.3 mg/dL (0.1-1.0); Bun/Creatinine Ratio 14.1 (12.0-20.0); Calcium, Blood 8.6 mg/dL (8.5-10.1); Creatinine, Blood 0.78 mg/dL (0.40-1.00); Globulin, Blood 3.8 g/dL (2.2-4.0); Percent Saturation 10.2 % (15.0-50.0); Potassium, Blood 3.8 mmol/L (3.5-5.5)
== END 2022-01-29 15:31 | disposition home or self-care (01) ==
LOC: ATC 01:35
PROVIDERS: Internal Medicine Gastroenterology
DX: K50.812 Crohn's disease of both small and large intestine with intestinal obstruction (principal); E55.9 Vitamin D deficiency, unspecified; R53.83 Other fatigue; F17.210 Nicotine dependence, cigarettes, uncomplicated; K59.09 Other constipation; K62.5 Hemorrhage of anus and rectum; F32.A Depression, unspecified
CPT/HCPCS: 36593; 80053; 82306; 83540; 83550; 85025; 96365; J1642; J2997; J3380; J7050

== ENCOUNTER 2022-02-26 00:51 | Day surgery (SDC) | payer OTHER | END 2022-02-26 14:25 | disposition home or self-care (01) | LOC: ATC 00:51 | DX: K50.80 Crohn's disease of both small and large intestine without complications (principal) | CPT/HCPCS: 96523; J1642 ==

== ENCOUNTER 2022-03-13 12:51 | Emergency (ER) | payer OTHER ==
[~2022-03-13] VITALS: Ht 167.6 cm; Wt 59.0 kg
[2022-03-13 14:02] LABS: Influenza A, PCR NEGATIVE (NEGATIVE); Influenza B, PCR NEGATIVE (NEGATIVE); Resp Syncytial Virus, PCR NEGATIVE (NEGATIVE)
[2022-03-13 14:52] LABS: SARS-Cov-2 (COVID-19) PCR, MMC POSITIVE (NEGATIVE)
[2022-03-13] MEDS ORDERED: ONDA4ODT MM (15:08)
[2022-03-13] MEDS ORDERED: FAMO20 PO (15:08)
== END 2022-03-13 15:22 | disposition home or self-care (01) ==
LOC: ER 12:51
PROVIDERS: Student in an Organized Health Care Education/Training Program
DX: U07.1 COVID-19 (principal); F17.210 Nicotine dependence, cigarettes, uncomplicated; Z88.5 Allergy status to narcotic agent; Z91.030 Bee allergy status; Z79.899 Other long term (current) drug therapy
CPT/HCPCS: 0241U

== ENCOUNTER 2022-03-26 01:43 | Day surgery (SDC) | payer OTHER ==
[~2022-03-26 01:43] MED LIST changes: +FAMO20 PO
[2022-03-26 14:17] LABS: Albumin, Blood 3.7 g/dL (3.4-5.0); Albumin/Globulin Ratio 0.9 (0.8-1.8); Bilirubin, Total 0.5 mg/dL (0.1-1.0); Bun/Creatinine Ratio 17.6 (12.0-20.0); Calcium, Blood 8.4 mg/dL (8.5-10.1); Creatinine, Blood 0.91 mg/dL (0.40-1.00); Globulin, Blood 4.2 g/dL (2.2-4.0); Total Protein, Blood 7.9 g/dL (6.4-8.2)
== END 2022-03-26 14:28 | disposition home or self-care (01) ==
LOC: ATC 01:43
PROVIDERS: Internal Medicine Gastroenterology
DX: K50.812 Crohn's disease of both small and large intestine with intestinal obstruction (principal)
CPT/HCPCS: 80053; 96365; J1642; J3380; J7050

== ENCOUNTER 2022-06-04 01:38 | Day surgery (SDC) | payer OTHER | END 2022-06-04 09:14 | disposition home or self-care (01) | LOC: ATC 01:38 | DX: K50.80 Crohn's disease of both small and large intestine without complications (principal); F17.210 Nicotine dependence, cigarettes, uncomplicated; Z88.5 Allergy status to narcotic agent; Z88.8 Allergy status to other drugs, medicaments and biological substances; Z79.899 Other long term (current) drug therapy | CPT/HCPCS: J1642; J3380; J7050 ==

== ENCOUNTER 2022-07-01 00:24 | Day surgery (SDC) | payer OTHER | END 2022-07-01 15:40 | disposition home or self-care (01) | LOC: ATC 00:24 | DX: C56.1 Malignant neoplasm of right ovary (principal) | CPT/HCPCS: 96523; J1642 ==

== ENCOUNTER 2022-07-16 16:18 | Day surgery (SDC) | payer OTHER ==
[2022-07-16 17:01] LABS: BASOPHILS ABSOLUTE AUTO 0.05 K/mm3 (0.00-0.23); BASOPHILS PERCENT AUTO 1 % (0-2); EOSINOPHILS ABSOLUTE AUTO 0.14 K/mm3 (0.00-0.68); EOSINOPHILS PERCENT AUTO 2 % (0-6); Hematocrit 37.3 % (33.0-51.0); Hemoglobin 12.7 g/dL (11.5-16.0); IMMATURE GRAN ABSOLUTE AUTO 0.01 K/mm3 (0.00-0.10); IMMATURE GRAN PERCENT AUTO 0 % (0-1); LYMPHOCYTES ABSOLUTE AUTO 3.19 K/mm3 (0.84-5.20); LYMPHOCYTES PERCENT AUTO 37 % (21-46); MONOCYTES ABSOLUTE AUTO 0.31 K/mm3 (0.16-1.47); MONOCYTES PERCENT AUTO 4 % (4-13); Mean Corpuscular HGB 29.8 pg (26.0-34.0); Mean Corpuscular Volume 88 fL (80-100); NEUTROPHILS ABSOLUTE AUTO 4.95 K/mm3 (1.96-9.15); NEUTROPHILS PERCENT AUTO 57 % (41-73); Platelet Count 337 K/mm3 (150-400); RDW Coefficient Variation 13.1 % (11.7-14.2); RDW Standard Deviation 41.9 fL (35.1-46.3); Red Blood Cell Count 4.26 M/mm3 (3.80-5.20); White Blood Cell Count 8.65 K/mm3 (4.00-11.30)
[2022-07-16 17:19] LABS: Albumin, Blood 3.3 g/dL (3.4-5.0); Albumin/Globulin Ratio 0.8 (0.8-1.8); Bilirubin, Total 0.3 mg/dL (0.1-1.0); Bun/Creatinine Ratio 15.5 (12.0-20.0); C-Reactive Protein, High Sens. 1.25 mg/L (0.000-3.000); Calcium, Blood 8.4 mg/dL (8.5-10.1); Creatinine, Blood 0.77 mg/dL (0.40-1.00); Globulin, Blood 4.2 g/dL (2.2-4.0); Potassium, Blood 3.5 mmol/L (3.5-5.5); Total Protein, Blood 7.5 g/dL (6.4-8.2)
== END 2022-07-16 16:49 | disposition home or self-care (01) ==
LOC: ATC 16:18
PROVIDERS: Internal Medicine Gastroenterology
DX: K50.812 Crohn's disease of both small and large intestine with intestinal obstruction (principal); R10.31 Right lower quadrant pain; R19.7 Diarrhea, unspecified; K62.5 Hemorrhage of anus and rectum
CPT/HCPCS: 36591; 80053; 85025; 86141; J1642

== ENCOUNTER 2022-07-24 09:57 | Day surgery (SDC) | payer OTHER ==
[~2022-07-24] VITALS: Ht 167.6 cm; Wt 57.4 kg
[2022-07-24] MEDS ORDERED: ZINC15 (10:17)
[2022-07-24] MEDS ORDERED: Vitamin C100 M1 (10:17)
[2022-07-24] MEDS ORDERED: CENTRUM SILVER1 EAC2 (10:17)
== END 2022-07-24 11:58 | disposition home or self-care (01) ==
LOC: ORSCSDS 09:57
PROVIDERS: Internal Medicine Gastroenterology
PROC: 0DBB8ZX Excision of Ileum, Via Natural or Artificial Opening Endoscopic, Diagnostic (ICD-10-PCS; principal; 2022-07-24 11:15)
PROC: 0DBE8ZX Excision of Large Intestine, Via Natural or Artificial Opening Endoscopic, Diagnostic (ICD-10-PCS; principal; 2022-07-24 11:15)
DX: K50.90 Crohn's disease, unspecified, without complications (principal); R19.7 Diarrhea, unspecified; K64.8 Other hemorrhoids; F17.210 Nicotine dependence, cigarettes, uncomplicated; G40.909 Epilepsy, unspecified, not intractable, without status epilepticus; Z79.899 Other long term (current) drug therapy
CPT/HCPCS: 88305; J1642; J2250; J2704; J7120

== ENCOUNTER 2022-07-24 20:24 | Inpatient (IN) | payer OTHER ==
[~2022-07-24] VITALS: Ht 167.6 cm; Wt 56.2 kg
[~2022-07-24 20:24] MED LIST changes: +CENTRUM SILVER1 EAC2; +Vitamin C100 M1; +ZINC15
[2022-07-24 21:14] LABS: BASOPHILS ABSOLUTE AUTO 0.04 K/mm3 (0.00-0.23); BASOPHILS PERCENT AUTO 0 % (0-2); EOSINOPHILS ABSOLUTE AUTO 0.03 K/mm3 (0.00-0.68); EOSINOPHILS PERCENT AUTO 0 % (0-6); Hematocrit 38.2 % (33.0-51.0); Hemoglobin 12.8 g/dL (11.5-16.0); IMMATURE GRAN ABSOLUTE AUTO 0.03 K/mm3 (0.00-0.10); IMMATURE GRAN PERCENT AUTO 0 % (0-1); LYMPHOCYTES ABSOLUTE AUTO 0.98 K/mm3 (0.84-5.20); LYMPHOCYTES PERCENT AUTO 8 % (21-46); MONOCYTES PERCENT AUTO 4 % (4-13); Mean Corpuscular HGB 29.6 pg (26.0-34.0); Mean Corpuscular HGB Conc 33.5 g/dL (31.5-36.5); Mean Corpuscular Volume 88 fL (80-100); Mean Platelet Volume 9.9 fL (9.1-12.4); NEUTROPHILS ABSOLUTE AUTO 10.43 K/mm3 (1.96-9.15); NEUTROPHILS PERCENT AUTO 87 % (41-73); Platelet Count 275 K/mm3 (150-400); RDW Coefficient Variation 12.9 % (11.7-14.2); RDW Standard Deviation 41.8 fL (35.1-46.3); Red Blood Cell Count 4.32 M/mm3 (3.80-5.20); White Blood Cell Count 12.01 K/mm3 (4.00-11.30)
[2022-07-24 21:26] LABS: Albumin, Blood 3.3 g/dL (3.4-5.0); Albumin/Globulin Ratio 0.8 (0.8-1.8); Bilirubin, Total 0.3 mg/dL (0.1-1.0); Bun/Creatinine Ratio 10.5 (12.0-20.0); Calcium, Blood 8.4 mg/dL (8.5-10.1); Creatinine, Blood 0.66 mg/dL (0.40-1.00); Globulin, Blood 4.2 g/dL (2.2-4.0); Potassium, Blood 3.4 mmol/L (3.5-5.5); Total Protein, Blood 7.5 g/dL (6.4-8.2)
--- NOTE | 2022-07-25 01:05 | NUR ---
ASSUMPTION OF CARE THIS RN ASSUMED CARE OF PT AT 0035. RECEIVED REPORT FROM PROSTHODONTIST/EDUCATOR, SONNY. PT ARRIVED TO PCU AT 0035. PT LYING IN BED, LETHARGIC AND DIFFICULT TO AROUSE. PT RESPONDING TO VERBAL STIMULI AND OPENING EYES TO VERBAL STIMULI BUT QUICKLY FALLING BACK TO SLEEP. PT OPENS EYES TO TACTILE STIMULUS BUT AGAIN FALLS BACK TO SLEEP QUICKLY. PT REPSONSES ARE SLOWED AND QUIET. AT TIMES PT RESPONSES ARE MUMBLED AND UNABLE TO BE UNDERSTOOD. VS; BP 108/56 (73), TEMP 89.9, SR W/HR OF 92, RR 22, 02 100% ON RA. PT ASSISTED TO PCU BED, UNABLE TO GET UP AND TRANSFER HERSELF. PT DENIES PAIN, SOB, CHEST PAIN OR CHEST PRESSURE. MEDIPORT ACCESSED IN ER; SALINE LOCKED PER REPORT FROM ABOVE RN. IV ANTIBIOTICS INFUSING NOW. PT UNABLE TO COMPLETE HISTORY AND ASSESSMENT AT THIS TIME. PT ALSO DECLINED FOR LACTIC ACID REDRAW AT THIS TIME. PT BELONGINGS ARRIVED W/PT IN BELONGINGS BAG. PT REPORTS SHE IS "COLD", VISIBLE GOOSEBUMPS NOTED, PT AFEBRILE AT THIS TIME. WARM BLANKET PROVIDED. CALL LIGHT IN REACH.
[2022-07-25 05:08] LABS: Bun/Creatinine Ratio 10.9 (12.0-20.0); Calcium, Blood 7.4 mg/dL (8.5-10.1); Creatinine, Blood 0.64 mg/dL (0.40-1.00); Potassium, Blood 3.3 mmol/L (3.5-5.5)
[2022-07-25 05:55] LABS: Source, Urine Clean Catch
--- NOTE | 2022-07-25 06:20 | NUR ---
SHIFT SUMMARY PT LETHARGIC T/O SHIFT; RESPONDS TO VERABAL AND TACTILE STIMULI ALTHOUGH DOES NOT STAY AWAKE LONG. PT STATES SHE IS "TIRED". VSS; NO ACUTE CHANGES SINCE ASSUMPTION OF CARE NOTE. SR/ST W/HR 90'S 115; HR DOES INCREASE TO 130'S W/EXERTION OR MOVEMENT. PT UP TO BSC TO VOID X1; UA SENT TO LAB PER ORDER. NS BOLUS X1 GIVEN, CURRENTLY NS INFUSING AT 150 ML/HR PER EMAR. VANCOMYCIN GIVEN WHEN PT ARRIVED TO PCU. PT DENIES PAIN, CP/PRESSURE OR SOB. PT FEBRILE W/TEMP OF 101.2 - 102. MEDICATED PER EMAR W/LITTLE IMPROVEMENT. CALL LIGHT IN REACH AND PT ENCOURAGED TO USE FOR NEEDS.
[2022-07-25 06:37] LABS: Bilirubin, Urine Neg (Neg); Blood, Urine Neg (Neg); Glucose Qualitative, Urine Neg (Neg); Ketones, Urine Neg (Neg); Leukocyte Esterase, Urine Neg (Neg); Nitrite, Urine Neg (Neg); Protein, Urine 1+ (Neg); Urobilinogen, Urine NORM (Normal)
[2022-07-25 06:57] LABS: Appearance, Urine Clear (Clear); Color, Urine Yellow (P-Yellow)
[2022-07-25 10:49] LABS: BASOPHILS ABSOLUTE AUTO 0.02 K/mm3 (0.00-0.23); BASOPHILS PERCENT AUTO 0 % (0-2); EOSINOPHILS ABSOLUTE AUTO 0.04 K/mm3 (0.00-0.68); EOSINOPHILS PERCENT AUTO 1 % (0-6); Hematocrit 33.6 % (33.0-51.0); Hemoglobin 11.2 g/dL (11.5-16.0); IMMATURE GRAN ABSOLUTE AUTO 0.02 K/mm3 (0.00-0.10); IMMATURE GRAN PERCENT AUTO 0 % (0-1); LYMPHOCYTES PERCENT AUTO 29 % (21-46); MONOCYTES PERCENT AUTO 7 % (4-13); Mean Corpuscular HGB 29.7 pg (26.0-34.0); Mean Corpuscular HGB Conc 33.3 g/dL (31.5-36.5); Mean Corpuscular Volume 89 fL (80-100); NEUTROPHILS ABSOLUTE AUTO 4.25 K/mm3 (1.96-9.15); NEUTROPHILS PERCENT AUTO 62 % (41-73); Platelet Count 229 K/mm3 (150-400); RDW Coefficient Variation 13.2 % (11.7-14.2); RDW Standard Deviation 43.1 fL (35.1-46.3); Red Blood Cell Count 3.77 M/mm3 (3.80-5.20); White Blood Cell Count 6.83 K/mm3 (4.00-11.30)
--- NOTE | 2022-07-25 19:03 | NUR ---
END OF SHIFT: PATIETN IS ALERT AND ORIENTED X 4, IS SLEEPY, AROUSABLE WITH VERBAL AND TACTILE. AFEBRILE. SLEPT MOST OF THE DAY. DENIES FILIBERTO PAIN OR PRESSURE, OR SOB AT REST. ON RA SPO2 >96%. PATIENT ABLE TO AMBULATE WELL. SBA. MEDIPORT ACCESSED PROVIDER AWARE. FLUIDS INFUSING 150/Hr. PATIENT HAS GENERALIZED BACK PAIN, AND ABD PAIN. PATIENT ABLE TO AMBULATE TO BATHROOM, MULTIPLE UNRECORDED URINE OUTPUTS DUE TO COMPLIANCE. CT ABD, SIMILAR TO JANUARY CT ABD. PLEASE SEE IMAGE REPORT. NO CONCERNS FROM THIS RN AT THIS TIME.
--- NOTE | 2022-07-25 19:23 | NUR ---
PATIENT LEFT UNIT: PATIENT WITHOUT INFORMING RN LEFT THE UNIT TO GO OUTSIDE TO SMOKE AFTER BEING TOLD SHE CANNOT LEAVE THE UNIT SHE MAY WALK THE UNIT BUT NOT OUTSIDE. THIS WAS ROUGHLY AT 0705, WHEN RN DID NOT SEE PATIENT LOOPING AROUND THE UNIT, WENT TO SEE IF SHE WAS OUTSIDE. SECURITY WAS CALLED. PATIENT WAS WHEELED BACK BY SIGNIFICANT OTHER THAT WAS IN THE ROOM. PATIENT ENDORSED THAT SHE WAS JUST SMOKING A CIGARETTE. NIGHT RN SPOKE TO COVERING PROVIDER AND TOXIC SCREEN TO BE OBTAINED. NIGHT RN ASSUMING CARE AND THEY WILL CONTINUE TO MONITOR.
--- NOTE | 2022-07-25 20:39 | NUR ---
ASSUMPTION OF CARE: THIS ASSUMED CARE AT 1910. PT NOT IN ROOM AT TIME, DAYTIME RN EXPRESSED PT HAD WALKED OUT OF ROOM AND WAS NOT CURRENTLY WITHIN UNIT. PLEASE SEE PREVIOUS NOTE. PT RETURNED TO ROOM WITH SIGNIFICANT OTHER AT 1935. THIS RN EDUCATED PT ON STAYING WITHIN UNIT AND NOT GOING OUTSIDE DUE TO SAFETY RISK. PT THEN GOT IRRITATED AND STATED "SHES BEEN IN HOSPITALS BEFORE AND WE CAN NOT KEEP HER WITHIN HER ROOM". THIS RN THEN ASKED PT WHY SHE LEFT ROOM, PT STATED "JUST TO SMOKE A CIGERETTE." PT EDUCATED ON NON SMOKING POLICY AND OFFERED NICITONE REPLACEMENT THERAPY, PT REFUSED. PT THEN AGREED TO STAY WITHIN UNIT. CALL PLACED TO MD FOR UPDATE. WILL CONTINUE TO MONITOR CLOSELY.
[2022-07-25 23:31] LABS: Vancomycin, Trough 8.8 ug/mL (5.0-10.0)
--- NOTE | 2022-07-26 04:24 | NUR ---
SHIFT SUMMARY: PT ALERT AND ORIENTED X4, ABLE TO FOLLOW COMMANDS AND MAKE NEEDS KNOWN. BP STABLE, HR SR 90'S, AFEBRILE, SATURATIONS >95% ON RA, RESPIRATIONS EVEN AND UNLABORED. PULSES STRONG THROUGHOUT. PT IRRITABLE AT BEGINNING OF SHIFT, SEE PREVIOUS NOTE, EDUCATED ON SAFETY PRECAUTIONS. PT SBA TO BATHROOM, NO BM THIS SHIFT. MEDICATED X2 FOR STOMACH AND BACK PAIN, SEE EMAR. BED IN LOW, CALL LIGHT IN REACH, WILL REPORT TO ONCOMING RN.
[2022-07-26 06:19] LABS: BASOPHILS ABSOLUTE AUTO 0.03 K/mm3 (0.00-0.23); BASOPHILS PERCENT AUTO 1 % (0-2); EOSINOPHILS ABSOLUTE AUTO 0.16 K/mm3 (0.00-0.68); EOSINOPHILS PERCENT AUTO 3 % (0-6); Hematocrit 28.7 % (33.0-51.0); IMMATURE GRAN ABSOLUTE AUTO 0.01 K/mm3 (0.00-0.10); IMMATURE GRAN PERCENT AUTO 0 % (0-1); LYMPHOCYTES ABSOLUTE AUTO 1.53 K/mm3 (0.84-5.20); LYMPHOCYTES PERCENT AUTO 27 % (21-46); MONOCYTES PERCENT AUTO 7 % (4-13); Mean Corpuscular HGB Conc 34.8 g/dL (31.5-36.5); Mean Corpuscular Volume 89 fL (80-100); Mean Platelet Volume 10.1 fL (9.1-12.4); NEUTROPHILS ABSOLUTE AUTO 3.61 K/mm3 (1.96-9.15); NEUTROPHILS PERCENT AUTO 63 % (41-73); Platelet Count 191 K/mm3 (150-400); RDW Coefficient Variation 13.2 % (11.7-14.2); RDW Standard Deviation 43.2 fL (35.1-46.3); Red Blood Cell Count 3.23 M/mm3 (3.80-5.20); White Blood Cell Count 5.74 K/mm3 (4.00-11.30)
[2022-07-26 06:57] LABS: Albumin, Blood 2.3 g/dL (3.4-5.0); Albumin/Globulin Ratio 0.7 (0.8-1.8); Bilirubin, Total 0.2 mg/dL (0.1-1.0); Bun/Creatinine Ratio 15.3 (12.0-20.0); Calcium, Blood 7.4 mg/dL (8.5-10.1); Creatinine, Blood 0.59 mg/dL (0.40-1.00); Globulin, Blood 3.3 g/dL (2.2-4.0); Potassium, Blood 3.7 mmol/L (3.5-5.5); Total Protein, Blood 5.6 g/dL (6.4-8.2)
--- NOTE | 2022-07-26 09:13 | NUR ---
PATIENT LEFT AMA PATIENT LEFT COMPLETELY AGAINST MEDICAL ADVISE, DID NOT ALLOW THIS NURSE PARALEGAL TO HEPARIN LOCK MEDIPORT, OR REMOVE HAND IV. PATIENT WAS DISTRAUGHT, ANXIOUS. DESIGN CHECKER WAS IN THE ROOM COMFORTING WHIE THIS NURSE PARALEGAL WSA OBTAINING PROER MATERIALS, DESIGN CHECKER CALLED [facility] FOR RIDE ASSISTANCE, AND PATIENT LEFT WITH ALL PERSONAL BELONGINGS, TELE OFF IN THE ROOM. PROVIDER AWARE, PATIENT WAS IN NO SIGN OF RESPIRATORY OR CADIAC DISTRESS AT TIME OF LEAVING AMA. PATIENT WAS EDUCATED THE NEED FOR PROPER DISCHARGE AND AWAITING RESULTS THIS AM BEFORE SHE LEFT.
== END 2022-07-26 09:15 | disposition left against medical advice (07) | DRG 872 ==
LOC: ER 20:24 → PCU 23:28
PROVIDERS: Emergency Medicine; Internal Medicine; Student in an Organized Health Care Education/Training Program; ADMIT Internal Medicine
DX: A41.9 Sepsis, unspecified organism (principal); K50.90 Crohn's disease, unspecified, without complications; E87.20 Acidosis, unspecified; D84.9 Immunodeficiency, unspecified; A09 Infectious gastroenteritis and colitis, unspecified; R65.20 Severe sepsis without septic shock; E87.6 Hypokalemia; G43.909 Migraine, unspecified, not intractable, without status migrainosus; G40.909 Epilepsy, unspecified, not intractable, without status epilepticus; M79.7 Fibromyalgia; I73.00 Raynaud's syndrome without gangrene; D64.9 Anemia, unspecified; F17.210 Nicotine dependence, cigarettes, uncomplicated; Z96.652 Presence of left artificial knee joint; Z88.8 Allergy status to other drugs, medicaments and biological substances; Z98.890 Other specified postprocedural states; Z90.49 Acquired absence of other specified parts of digestive tract; Z87.19 Personal history of other diseases of the digestive system; Z98.51 Tubal ligation status; Z91.038 Other insect allergy status; Z88.5 Allergy status to narcotic agent; Z79.899 Other long term (current) drug therapy
CPT/HCPCS: 36415; 71045; 74177; 80048; 80053; 80202; 83605; 83690; 85025; 87040; 87077; 93005; 93010; 96365; 96375; 99285-25; A9270; J0696; J1650; J3010; J3370; J7030; Q9967

== ENCOUNTER 2022-07-27 13:19 | Day surgery (SDC) | payer OTHER | END 2022-07-27 13:56 | disposition home or self-care (01) | LOC: ATC 13:19 | DX: K50.80 Crohn's disease of both small and large intestine without complications (principal) | CPT/HCPCS: 96523; J1642 ==

== ENCOUNTER 2022-08-04 15:04 | Day surgery (SDC) | payer OTHER ==
--- NOTE | 2022-08-04 15:24 | NUR ---
10 CC PACKING PULLED OUT
== END 2022-08-04 15:25 | disposition home or self-care (01) ==
LOC: ATC 15:04
DX: Z45.2 Encounter for adjustment and management of vascular access device (principal); C56.1 Malignant neoplasm of right ovary; C77.5 Secondary and unspecified malignant neoplasm of intrapelvic lymph nodes; Z87.891 Personal history of nicotine dependence; Z79.01 Long term (current) use of anticoagulants
CPT/HCPCS: 96523; J1642

== ENCOUNTER 2022-08-11 13:30 | Emergency (ER) | payer OTHER ==
[~2022-08-11] VITALS: Ht 167.6 cm; Wt 61.7 kg
[2022-08-11 14:29] LABS: BASOPHILS ABSOLUTE AUTO 0.05 K/mm3 (0.00-0.23); BASOPHILS PERCENT AUTO 1 % (0-2); EOSINOPHILS ABSOLUTE AUTO 0.16 K/mm3 (0.00-0.68); EOSINOPHILS PERCENT AUTO 2 % (0-6); Hematocrit 38.3 % (33.0-51.0); Hemoglobin 12.6 g/dL (11.5-16.0); IMMATURE GRAN ABSOLUTE AUTO 0.01 K/mm3 (0.00-0.10); IMMATURE GRAN PERCENT AUTO 0 % (0-1); LYMPHOCYTES ABSOLUTE AUTO 2.75 K/mm3 (0.84-5.20); LYMPHOCYTES PERCENT AUTO 35 % (21-46); MONOCYTES ABSOLUTE AUTO 0.36 K/mm3 (0.16-1.47); MONOCYTES PERCENT AUTO 5 % (4-13); Mean Corpuscular HGB 30.1 pg (26.0-34.0); Mean Corpuscular HGB Conc 32.9 g/dL (31.5-36.5); Mean Corpuscular Volume 91 fL (80-100); Mean Platelet Volume 9.8 fL (9.1-12.4); NEUTROPHILS ABSOLUTE AUTO 4.63 K/mm3 (1.96-9.15); NEUTROPHILS PERCENT AUTO 58 % (41-73); Platelet Count 383 K/mm3 (150-400); RDW Coefficient Variation 13.6 % (11.7-14.2); RDW Standard Deviation 46.1 fL (35.1-46.3); Red Blood Cell Count 4.19 M/mm3 (3.80-5.20); White Blood Cell Count 7.96 K/mm3 (4.00-11.30)
[2022-08-11 14:48] LABS: Albumin, Blood 3.3 g/dL (3.4-5.0); Albumin/Globulin Ratio 0.8 (0.8-1.8); Bilirubin, Total 0.1 mg/dL (0.1-1.0); Bun/Creatinine Ratio 21.3 (12.0-20.0); Calcium, Blood 8.5 mg/dL (8.5-10.1); Creatinine, Blood 0.61 mg/dL (0.40-1.00); Globulin, Blood 4.3 g/dL (2.2-4.0); Potassium, Blood 3.9 mmol/L (3.5-5.5); Total Protein, Blood 7.6 g/dL (6.4-8.2)
[2022-08-11] MEDS ORDERED: IRON18 MG PO (19:39)
[2022-08-11] MEDS ORDERED: VITAMIN D5000 UNIT PO (19:40)
[2022-08-11] MEDS ORDERED: Vitamin B-12100 MCG PO (19:40)
== END 2022-08-11 20:29 | disposition other institution (70) ==
LOC: ER 13:30
PROVIDERS: Physician Assistant
DX: R78.81 Bacteremia (principal); F17.210 Nicotine dependence, cigarettes, uncomplicated; Z88.8 Allergy status to other drugs, medicaments and biological substances; Z91.030 Bee allergy status; Z88.5 Allergy status to narcotic agent
CPT/HCPCS: 36415; 80053; 85025

== ENCOUNTER 2022-08-13 01:17 | Day surgery (SDC) | payer OTHER ==
[~2022-08-13 01:17] MED LIST changes: +IRON18 MG PO; +VITAMIN D5000 UNIT PO; +Vitamin B-12100 MCG PO
[2022-08-13] MEDS ORDERED: CEFTRIAXONE2 G1 IV (15:48)
== END 2022-08-13 15:48 | disposition home or self-care (01) ==
LOC: ATC 01:17
DX: R78.81 Bacteremia (principal); Z87.891 Personal history of nicotine dependence
CPT/HCPCS: 96374; J0696; J1642

== ENCOUNTER 2022-08-14 00:09 | Day surgery (SDC) | payer OTHER ==
[~2022-08-14 00:09] MED LIST changes: +CEFTRIAXONE2 G1 IV
== END 2022-08-14 14:21 | disposition home or self-care (01) ==
LOC: ATC 00:09
DX: R78.81 Bacteremia (principal)
CPT/HCPCS: J0696

== ENCOUNTER 2022-08-16 11:16 | Day surgery (SDC) | payer OTHER | END 2022-08-16 11:21 | disposition home or self-care (01) | LOC: ATC 11:16 | DX: R78.81 Bacteremia (principal); Z87.891 Personal history of nicotine dependence; Z79.01 Long term (current) use of anticoagulants | CPT/HCPCS: 96374; J0696 ==

== ENCOUNTER 2022-08-18 00:18 | Day surgery (SDC) | payer OTHER | END 2022-08-18 14:20 | disposition home or self-care (01) | LOC: ATC 00:18 | DX: R78.81 Bacteremia (principal) | CPT/HCPCS: 96374; J0696 ==

== ENCOUNTER 2022-08-19 14:04 | Day surgery (SDC) | payer OTHER | END 2022-08-19 14:41 | disposition home or self-care (01) | LOC: ATC 14:04 | DX: R78.81 Bacteremia (principal); C50.919 Malignant neoplasm of unspecified site of unspecified female breast | CPT/HCPCS: 96374; J0696 ==

== ENCOUNTER 2022-09-14 19:13 | Inpatient (IN) | payer OTHER ==
[~2022-09-14] VITALS: Ht 167.6 cm; Wt 61.2 kg
[2022-09-14 20:00] LABS: BASOPHILS ABSOLUTE AUTO 0.04 K/mm3 (0.00-0.23); BASOPHILS PERCENT AUTO 0 % (0-2); EOSINOPHILS ABSOLUTE AUTO 0.11 K/mm3 (0.00-0.68); EOSINOPHILS PERCENT AUTO 1 % (0-6); Hemoglobin 13.3 g/dL (11.5-16.0); IMMATURE GRAN ABSOLUTE AUTO 0.02 K/mm3 (0.00-0.10); IMMATURE GRAN PERCENT AUTO 0 % (0-1); LYMPHOCYTES ABSOLUTE AUTO 2.59 K/mm3 (0.84-5.20); LYMPHOCYTES PERCENT AUTO 25 % (21-46); MONOCYTES ABSOLUTE AUTO 0.34 K/mm3 (0.16-1.47); MONOCYTES PERCENT AUTO 3 % (4-13); Mean Corpuscular HGB 29.4 pg (26.0-34.0); Mean Corpuscular HGB Conc 34.1 g/dL (31.5-36.5); Mean Corpuscular Volume 86 fL (80-100); Mean Platelet Volume 10.3 fL (9.1-12.4); NEUTROPHILS ABSOLUTE AUTO 7.48 K/mm3 (1.96-9.15); NEUTROPHILS PERCENT AUTO 71 % (41-73); Platelet Count 364 K/mm3 (150-400); RDW Standard Deviation 40.8 fL (35.1-46.3); Red Blood Cell Count 4.53 M/mm3 (3.80-5.20); White Blood Cell Count 10.58 K/mm3 (4.00-11.30)
[2022-09-14 20:29] LABS: Albumin, Blood 3.5 g/dL (3.4-5.0); Albumin/Globulin Ratio 0.7 (0.8-1.8); Bilirubin, Total 0.3 mg/dL (0.1-1.0); Bun/Creatinine Ratio 19.2 (12.0-20.0); Calcium, Blood 8.7 mg/dL (8.5-10.1); Creatinine, Blood 0.73 mg/dL (0.40-1.00); Globulin, Blood 5.1 g/dL (2.2-4.0); Potassium, Blood 3.5 mmol/L (3.5-5.5); Total Protein, Blood 8.6 g/dL (6.4-8.2)
--- NOTE | 2022-09-15 01:01 | NUR ---
ADMIT NOTE 41 YR OLD FEMALE ADMITTED TO FLOOR FROM THE ED WITH DX OF ACUTE PANCREATITIS. ALERT AND ORIENTED X 4. NPO. VSS. IVF OF NS INFUSING. TOLERATED FLU SHOT. ORIENTED TO USE OF CALL LIGHT, CALL LIGHT IN REACH. WILL CONTINUE TO MONITOR
--- NOTE | 2022-09-15 02:02 | NUR ---
VOICED DILAUDID 1 MG IV Q2P NOT EFFECTIVE. MD NOTIFIED AND MD INCREASED MED TO DILAUDID 2 MG IV Q2P, WITH CONT PULSE OX FOR MONITORING. RT NOTIFIED TO STEEL BOX TOE INSERTER CONT PULSE OX.
--- NOTE | 2022-09-15 05:40 | NUR ---
ORACLE DATABASE ARCHITECT SUMMARY WAS ADMITTED FOR ACUTE PANCREATITIS. VSS. VOICED INITIAL DOSE OF DIALUDID WAS NOT EFFECTIVE. MD NOTIFIED AND DOSE DOUBLED TO 2 MG IV Q2P. HAS BEEN RESTING QUIETLY WITH FEW INTERRUPTIONS. IVF OF LR INFUSING AT 125 ML/HR. REMAINS NPO, CALL LIGHT IN REACH.
[2022-09-15 06:17] LABS: CHOL/HDL RATIO 2.4; Cholesterol 112 mg/dL (50-200); HDL Cholesterol 47 mg/dL (>39); LDL/HDL RATIO 0.8; Low Density Lipoprotein Chol 38 mg/dL (0-110); Triglycerides 136 mg/dL (30-160); Very Low Density Lipoprot Chol 27 mg/dL (6-32)
--- NOTE | 2022-09-15 14:09 | NUR ---
PT SEEN LEAVING THE FLOOR WITH , WALKING, INFORMED BY THE SPORTS PHYSICAL THERAPIST THAT THEY CANNOT LEAVE THE FLOOR DUE TO SAFETY ISSUES. PT LEFT THE ROOM AGAIN AFTER LUNCH VIA WHEELCHAIR. NURSE ATTEMPTED TO INFORM THE PT THAT SHE IS NOT TO LEAVE THE FLOOR BUT IS WELCOME TO WALK AROUND THE FLOOR PER HOSPITAL POLICY. PT ASKED TO SPEAK TO A CHARGE NURSE. CHARGE NURSE SPOKE WITH THE PT, REFINFORCING THE POLICY. PT ASKED TO THEN SPEAK TO THE POSITION DESCRIPTION MANAGER. THE CHARGE NURSE, COLLEEN, ASKED A POSITION DESCRIPTION MANAGER TO COME SPEAK TO THE PT. HE AGREED AND WILL SPEAK WITH HER.
--- NOTE | 2022-09-15 18:24 | NUR ---
PT LEFT AND DR. GUAMAN WAS NOTIFIED. AMA FORM COMPLETED AND PLACED IN THE PT'S CHART. PT EXPLAINED THE RISKS OF LEAVING AMA AND STILL WANTED TO LEAVE.
== END 2022-09-15 18:19 | disposition left against medical advice (07) | DRG 439 ==
LOC: ER 19:13 → MEDS 09-15 00:23
PROVIDERS: Student in an Organized Health Care Education/Training Program; ADMIT Internal Medicine
DX: K85.90 Acute pancreatitis without necrosis or infection, unspecified (principal); K50.90 Crohn's disease, unspecified, without complications; M79.7 Fibromyalgia; G40.909 Epilepsy, unspecified, not intractable, without status epilepticus; G43.909 Migraine, unspecified, not intractable, without status migrainosus; I73.00 Raynaud's syndrome without gangrene; D64.9 Anemia, unspecified; F17.210 Nicotine dependence, cigarettes, uncomplicated; Z96.652 Presence of left artificial knee joint; Z90.49 Acquired absence of other specified parts of digestive tract; Z23 Encounter for immunization; Z88.8 Allergy status to other drugs, medicaments and biological substances; Z91.038 Other insect allergy status; Z88.5 Allergy status to narcotic agent; Z98.51 Tubal ligation status; Z79.899 Other long term (current) drug therapy; Z98.890 Other specified postprocedural states
CPT/HCPCS: 36415; 80053; 80061; 83690; 85025; 90686; 93005; 93010; 94762; 96372; 96374; 96375; 96376; 99285-25; G0008; G0378; J1170; J1642; J1650; J2405; J7030; J7120

== ENCOUNTER 2022-09-30 15:42 | Inpatient (IN) | payer OTHER ==
[~2022-09-30] VITALS: Ht 167.6 cm; Wt 62.3 kg
[2022-09-30 20:16] LABS: BASOPHILS ABSOLUTE AUTO 0.05 K/mm3 (0.00-0.23); BASOPHILS PERCENT AUTO 1 % (0-2); EOSINOPHILS ABSOLUTE AUTO 0.17 K/mm3 (0.00-0.68); EOSINOPHILS PERCENT AUTO 2 % (0-6); Hematocrit 35.5 % (33.0-51.0); Hemoglobin 11.9 g/dL (11.5-16.0); IMMATURE GRAN ABSOLUTE AUTO 0.02 K/mm3 (0.00-0.10); IMMATURE GRAN PERCENT AUTO 0 % (0-1); LYMPHOCYTES ABSOLUTE AUTO 3.31 K/mm3 (0.84-5.20); LYMPHOCYTES PERCENT AUTO 32 % (21-46); MONOCYTES ABSOLUTE AUTO 0.49 K/mm3 (0.16-1.47); MONOCYTES PERCENT AUTO 5 % (4-13); Mean Corpuscular HGB 28.6 pg (26.0-34.0); Mean Corpuscular HGB Conc 33.5 g/dL (31.5-36.5); Mean Corpuscular Volume 85 fL (80-100); Mean Platelet Volume 9.8 fL (9.1-12.4); NEUTROPHILS ABSOLUTE AUTO 6.22 K/mm3 (1.96-9.15); NEUTROPHILS PERCENT AUTO 61 % (41-73); Platelet Count 430 K/mm3 (150-400); RDW Standard Deviation 40.3 fL (35.1-46.3); Red Blood Cell Count 4.16 M/mm3 (3.80-5.20); White Blood Cell Count 10.26 K/mm3 (4.00-11.30)
[2022-09-30 20:51] LABS: Albumin, Blood 3.3 g/dL (3.4-5.0); Albumin/Globulin Ratio 0.7 (0.8-1.8); Bilirubin, Total 0.1 mg/dL (0.1-1.0); Bun/Creatinine Ratio 26.8 (12.0-20.0); Calcium, Blood 8.9 mg/dL (8.5-10.1); Creatinine, Blood 0.67 mg/dL (0.40-1.00); Total Protein, Blood 8.3 g/dL (6.4-8.2)
[2022-10-01] MEDS ORDERED: TOPI100 PO (00:12)
--- NOTE | 2022-10-01 05:51 | NUR ---
PATIENT ALERT AND ORIENTED, ROOM AIR, INDEPENDENT, LEFT SUBCLAVIAN MEDAPORT W/ NS INFUSING AT 125CC/HR, PATIENT COMPLAINED OF PAIN AND MEDICATED PER EMAR. NO EVENTS OVERNIGHT
[2022-10-01 06:09] LABS: BASOPHILS ABSOLUTE AUTO 0.04 K/mm3 (0.00-0.23); BASOPHILS PERCENT AUTO 1 % (0-2); EOSINOPHILS ABSOLUTE AUTO 0.21 K/mm3 (0.00-0.68); EOSINOPHILS PERCENT AUTO 2 % (0-6); Hemoglobin 10.7 g/dL (11.5-16.0); IMMATURE GRAN ABSOLUTE AUTO 0.02 K/mm3 (0.00-0.10); IMMATURE GRAN PERCENT AUTO 0 % (0-1); LYMPHOCYTES ABSOLUTE AUTO 2.86 K/mm3 (0.84-5.20); LYMPHOCYTES PERCENT AUTO 33 % (21-46); MONOCYTES PERCENT AUTO 5 % (4-13); Mean Corpuscular HGB 28.5 pg (26.0-34.0); Mean Corpuscular HGB Conc 32.4 g/dL (31.5-36.5); Mean Corpuscular Volume 88 fL (80-100); Mean Platelet Volume 9.7 fL (9.1-12.4); NEUTROPHILS ABSOLUTE AUTO 5.26 K/mm3 (1.96-9.15); NEUTROPHILS PERCENT AUTO 60 % (41-73); Platelet Count 355 K/mm3 (150-400); RDW Coefficient Variation 13.1 % (11.7-14.2); RDW Standard Deviation 41.9 fL (35.1-46.3); Red Blood Cell Count 3.75 M/mm3 (3.80-5.20); White Blood Cell Count 8.79 K/mm3 (4.00-11.30)
--- NOTE | 2022-10-01 12:44 | NUR ---
PT LEAVES AMA PT ADVISED ON RISKS OF LEAVING. MEDIPORT DEACCESSED PRIOR TO PT LEAVING.
[2022-10-01 17:12] LABS: Anion Gap 5 mmol/L (6-16); Blood Urea Nitrogen 11 mg/dL (8-24); Bun/Creatinine Ratio 17.7 (12.0-20.0); CO2, Blood 22 mmol/L (21-32); Chloride, Blood 114 mmol/L (98-108); Creatinine, Blood 0.62 mg/dL (0.40-1.00); Glomerular Filtration Rate 114 (60-); Glucose, Blood 87 mg/dL (70-99); Potassium, Blood 3.7 mmol/L (3.5-5.5); Sodium, Blood 141 mmol/L (136-145)
[2022-10-01 17:13] LABS: Albumin, Blood 2.6 g/dL (3.4-5.0); Calcium, Blood 7.6 mg/dL (8.5-10.1)
== END 2022-10-01 13:25 | disposition left against medical advice (07) | DRG 439 ==
LOC: ER 15:42 → MEDS 23:26
PROVIDERS: Physician Assistant; ADMIT Internal Medicine
DX: K85.90 Acute pancreatitis without necrosis or infection, unspecified (principal); K50.90 Crohn's disease, unspecified, without complications; K86.1 Other chronic pancreatitis; G43.909 Migraine, unspecified, not intractable, without status migrainosus; M25.551 Pain in right hip; E55.9 Vitamin D deficiency, unspecified; K52.9 Noninfective gastroenteritis and colitis, unspecified; M79.7 Fibromyalgia; D64.9 Anemia, unspecified; G40.909 Epilepsy, unspecified, not intractable, without status epilepticus; I73.00 Raynaud's syndrome without gangrene; F17.210 Nicotine dependence, cigarettes, uncomplicated; M85.80 Other specified disorders of bone density and structure, unspecified site; Z96.652 Presence of left artificial knee joint; Z88.8 Allergy status to other drugs, medicaments and biological substances; Z91.038 Other insect allergy status; Z98.51 Tubal ligation status; Z90.49 Acquired absence of other specified parts of digestive tract; Z98.890 Other specified postprocedural states; Z88.5 Allergy status to narcotic agent; Z79.899 Other long term (current) drug therapy
CPT/HCPCS: 71045; 73502; 74177; 80053; 80069; 83690; 85025; 96374-59; 96375; 96376; 99285-25; A9270; J1170; J1200; J1642; J1650; J2270; J2405; J7030; J7120; Q9967

== ENCOUNTER 2022-10-01 23:14 | Inpatient (IN) | payer OTHER ==
[~2022-10-01] VITALS: Ht 167.6 cm; Wt 62.6 kg
[~2022-10-01 23:14] MED LIST changes: +TOPI100 PO
[2022-10-01 23:44] LABS: BASOPHILS ABSOLUTE AUTO 0.05 K/mm3 (0.00-0.23); BASOPHILS PERCENT AUTO 1 % (0-2); EOSINOPHILS ABSOLUTE AUTO 0.14 K/mm3 (0.00-0.68); EOSINOPHILS PERCENT AUTO 1 % (0-6); Hematocrit 32.7 % (33.0-51.0); Hemoglobin 10.9 g/dL (11.5-16.0); IMMATURE GRAN ABSOLUTE AUTO 0.03 K/mm3 (0.00-0.10); IMMATURE GRAN PERCENT AUTO 0 % (0-1); LYMPHOCYTES ABSOLUTE AUTO 2.38 K/mm3 (0.84-5.20); LYMPHOCYTES PERCENT AUTO 25 % (21-46); MONOCYTES PERCENT AUTO 4 % (4-13); Mean Corpuscular HGB 28.7 pg (26.0-34.0); Mean Corpuscular HGB Conc 33.3 g/dL (31.5-36.5); Mean Corpuscular Volume 86 fL (80-100); Mean Platelet Volume 9.8 fL (9.1-12.4); NEUTROPHILS ABSOLUTE AUTO 6.71 K/mm3 (1.96-9.15); NEUTROPHILS PERCENT AUTO 69 % (41-73); Platelet Count 386 K/mm3 (150-400); RDW Coefficient Variation 12.9 % (11.7-14.2); RDW Standard Deviation 40.6 fL (35.1-46.3); White Blood Cell Count 9.71 K/mm3 (4.00-11.30)
[2022-10-02 00:41] LABS: Albumin/Globulin Ratio 0.7 (0.8-1.8); Bilirubin, Total 0.2 mg/dL (0.1-1.0); Bun/Creatinine Ratio 17.9 (12.0-20.0); Calcium, Blood 8.3 mg/dL (8.5-10.1); Creatinine, Blood 0.61 mg/dL (0.40-1.00); Globulin, Blood 4.2 g/dL (2.2-4.0); Potassium, Blood 3.7 mmol/L (3.5-5.5); Total Protein, Blood 7.2 g/dL (6.4-8.2)
--- NOTE | 2022-10-02 03:42 | NUR ---
PT ADMITTED TO FLOOR VIA WHEELCHAIR. PT AMBULATORY TO MEDICAL FLOOR BED. PT REPORTS PAIN IS COMING BACK, AND SHE HAS NAUSEA. REVIEWED CURRENT MEDICATION ORDERS WITH PT - SEE EMAR FOR FOLLOW UP. PT REPORTS SHE IS HOMELESS, AND SHE REPORTS "HER SIGNIFICANT OTHER HAS ALWAYS BEEN ABLE TO STAY". HER SO IS HERE, AND SHE REPORTS ITS TOO COLD TO BE OUTSIDE. I REVIEWED VISITING HOURS WITH PT/SO, HOWEVER I DIDN'T FORCE OUR VISITING HOURS DUE TO THE ABOVE. PT REPORTS HER PAIN IS IN HER MID ABDOMEN. PT IS NPO, TOOTHETTES AND MOUTH MOISTURIZER PROVIDED. PT HAS BEEN ADMITTED FOR THE SAME DIAGNOSIS, AND REPORT IS SHE LEFT AMA YESTERDAY. PT COMES TO THE INFUSION CLINIC FOR HER CROHN'S DISEASE. PT'S MEDIPORT IS ACCESSED. WILL MEDICATE PER ORDERS. TOWARD THE END OF THE ADMIT ASSESSMENT, PT REPORTED HAVING AN ITCHY RASH TO HER BLE. FAINT PINK/RED RASH NOTED TO BLE, MORE ON THE BL SHINS, SCANT AMOUNT ON THE UPPER THIGHS, AND NOT PRESENT ANYWHERE ELSE. PT REPORTS SHE DID "NOT HAVE THIS RASH IN ER." WILL CONTINUE TO MONITOR UNTIL AM SHIFT. WILL FOLLOW UP WITH THE FOR ORDERS.
--- NOTE | 2022-10-02 04:40 | NUR ---
I SPOKE TO DR. GUAMAN, RECEIVED ORDERS FOR BENADRYL IV - ADMINISTERED - SEE EMAR. PT REPORTS HER PAIN LEVEL IS "BETTER." PT IS GETTING SLEEPY, LIGHTS OFF FOR PT COMFORT. CALL LIGHT WITHIN REACH. OVERBED TABLE WITHIN REACH. WILL CONTINUE TO MONITOR UNTIL AM SHIFT.
--- NOTE | 2022-10-02 05:28 | NUR ---
PT IS SLEEPING, RESPIRATIONS EVEN AND UNLABORED.
[2022-10-02 05:46] LABS: BASOPHILS ABSOLUTE AUTO 0.07 K/mm3 (0.00-0.23); BASOPHILS PERCENT AUTO 1 % (0-2); EOSINOPHILS ABSOLUTE AUTO 0.21 K/mm3 (0.00-0.68); EOSINOPHILS PERCENT AUTO 3 % (0-6); Hematocrit 30.6 % (33.0-51.0); Hemoglobin 9.9 g/dL (11.5-16.0); IMMATURE GRAN ABSOLUTE AUTO 0.01 K/mm3 (0.00-0.10); IMMATURE GRAN PERCENT AUTO 0 % (0-1); LYMPHOCYTES ABSOLUTE AUTO 2.47 K/mm3 (0.84-5.20); LYMPHOCYTES PERCENT AUTO 36 % (21-46); MONOCYTES PERCENT AUTO 6 % (4-13); Mean Corpuscular HGB 28.2 pg (26.0-34.0); Mean Corpuscular HGB Conc 32.4 g/dL (31.5-36.5); Mean Corpuscular Volume 87 fL (80-100); Mean Platelet Volume 9.8 fL (9.1-12.4); NEUTROPHILS ABSOLUTE AUTO 3.79 K/mm3 (1.96-9.15); NEUTROPHILS PERCENT AUTO 55 % (41-73); Platelet Count 333 K/mm3 (150-400); RDW Standard Deviation 41.2 fL (35.1-46.3); Red Blood Cell Count 3.51 M/mm3 (3.80-5.20); White Blood Cell Count 6.95 K/mm3 (4.00-11.30)
--- NOTE | 2022-10-02 06:00 | NUR ---
SHIFT SUMMARY - NO ACUTE CHANGES SINCE ADMIT TONIGHT. PT WAS SLEEPING THIS AM, WHEN ENTERED FOR LAB DRAW. PT AWAKENED EASILY, BUT DRIFTED OFF BACK TO SLEEP DURING MEDIPORT LAB DRAW. NO S/S OF DISTRESS NOTED. RESPIRATIONS EVEN AND UNLABORED. NO INCREASE IN RASH TO BLE NOTED. CALL LIGHT WITHIN REACH. PT IS NPO. BED IN LOW POSITION. WILL CONTINUE TO MONITOR UNTIL AM SHIFT CHANGE.
[2022-10-02 06:59] LABS: Albumin, Blood 2.6 g/dL (3.4-5.0); Albumin/Globulin Ratio 0.7 (0.8-1.8); Bilirubin, Total 0.3 mg/dL (0.1-1.0); Bun/Creatinine Ratio 13.7 (12.0-20.0); Calcium, Blood 7.5 mg/dL (8.5-10.1); Creatinine, Blood 0.66 mg/dL (0.40-1.00); Globulin, Blood 3.7 g/dL (2.2-4.0); Potassium, Blood 3.6 mmol/L (3.5-5.5); Total Protein, Blood 6.3 g/dL (6.4-8.2)
--- NOTE | 2022-10-02 10:59 | NUR ---
"Spiiritual Care | Pt. Request Pt. is awake in bed and welcomes my visit. Spouse is sleeping at bedside. Pt. is pleasant but unsettled by a series of social and legal issues that have been complicated by her pancreatitis. Through theraputic listening and a supportive calming presence Pt. displays evidence of a restored jazmyn. Facilitated a life review. Pt. verbalized that Spouse is primarily beninese speaking. Pt. also verbalized that their circumstances have currently left them homeless. Prayed with Pt. Pt. verbalized gratitude for the spiritual care visit."
[2022-10-02 12:51] LABS: Source, Urine Clean Catch
[2022-10-02 13:26] LABS: Appearance, Urine Clear (Clear); Bilirubin, Urine Neg (Neg); Blood, Urine 1+ (Neg); Color, Urine Yellow (P-Yellow); Glucose Qualitative, Urine Neg (Neg); Ketones, Urine Neg (Neg); Leukocyte Esterase, Urine Neg (Neg); Nitrite, Urine Neg (Neg); Protein, Urine Neg (Neg); Specific Gravity, Urine 1.015 (1.003-1.022); Urobilinogen, Urine NORM (Normal)
[2022-10-02 13:38] LABS: Bacteria Few /hpf; Red Blood Cells, Urine 0-2 /hpf (0-2); Squamous Epithelial Cells Few /hpf (Few); White Blood Cells, Urine 0-2 /hpf (0-5)
[2022-10-02 14:19] LABS: U Amphetamine Screen Not Detected; U Barbituate Screen Not Detected; U Benzodiazapine Screen Not Detected; U Buprenorphine Screen Not Detected; U Cannabinoids Screen Not Detected; U Cocaine Screen Not Detected; U Methadone Screen Not Detected; U Methamphetamine Screen Not Detected; U Opiates Screen DETECTED; U Oxycodone Screen Not Detected; U Phencyclidine Screen Not Detected; U Propoxyphene Screen Not Detected
--- NOTE | 2022-10-02 18:32 | NUR ---
SHIFT SUMMARY PT A&OX4 AND IN PLEASENT MOOD T/O SHIFT. PT AT BEDSIDE T/O SHIFT. PT AND SPOUSE ARGUEING IN ROOM AT APPROX 1815. TOLERATING CLEAR LIQUID DIET, ADVANCING TO FULL LIQUID PER PT REQUEST. CALL LIGHT W/IN REACH. VSS. MEDIPORT ACCESSED. IV FLUID RUNNING TKO @ THIS TIME-PT TOLERATING PO INTAKE WELL.
[2022-10-03 05:20] LABS: BASOPHILS ABSOLUTE AUTO 0.03 K/mm3 (0.00-0.23); BASOPHILS PERCENT AUTO 0 % (0-2); EOSINOPHILS ABSOLUTE AUTO 0.26 K/mm3 (0.00-0.68); EOSINOPHILS PERCENT AUTO 4 % (0-6); Hematocrit 31.4 % (33.0-51.0); Hemoglobin 10.3 g/dL (11.5-16.0); IMMATURE GRAN ABSOLUTE AUTO 0.02 K/mm3 (0.00-0.10); IMMATURE GRAN PERCENT AUTO 0 % (0-1); LYMPHOCYTES ABSOLUTE AUTO 2.47 K/mm3 (0.84-5.20); LYMPHOCYTES PERCENT AUTO 37 % (21-46); MONOCYTES ABSOLUTE AUTO 0.36 K/mm3 (0.16-1.47); MONOCYTES PERCENT AUTO 5 % (4-13); Mean Corpuscular HGB 28.6 pg (26.0-34.0); Mean Corpuscular HGB Conc 32.8 g/dL (31.5-36.5); Mean Corpuscular Volume 87 fL (80-100); Mean Platelet Volume 9.7 fL (9.1-12.4); NEUTROPHILS ABSOLUTE AUTO 3.57 K/mm3 (1.96-9.15); NEUTROPHILS PERCENT AUTO 53 % (41-73); Platelet Count 361 K/mm3 (150-400); RDW Standard Deviation 41.2 fL (35.1-46.3); White Blood Cell Count 6.71 K/mm3 (4.00-11.30)
[2022-10-03 05:51] LABS: Alanine Aminotransfer (ALT/SGP 25 U/L (12-78); Albumin, Blood 2.7 g/dL (3.4-5.0); Albumin/Globulin Ratio 0.7 (0.8-1.8); Alk Phos 52 U/L (50-136); Anion Gap 3 mmol/L (6-16); Aspartate Aminotrans (AST/SGOT 18 U/L (12-37); Bilirubin, Total <0.1 mg/dL (0.1-1.0); Blood Urea Nitrogen 6 mg/dL (8-24); Bun/Creatinine Ratio 8.7 (12.0-20.0); CO2, Blood 25 mmol/L (21-32); Calcium, Blood 8.2 mg/dL (8.5-10.1); Chloride, Blood 112 mmol/L (98-108); Creatinine, Blood 0.69 mg/dL (0.40-1.00); Globulin, Blood 3.9 g/dL (2.2-4.0); Glomerular Filtration Rate 111 (60-); Glucose, Blood 97 mg/dL (70-99); Potassium, Blood 3.6 mmol/L (3.5-5.5); Sodium, Blood 140 mmol/L (136-145); Total Protein, Blood 6.6 g/dL (6.4-8.2)
--- NOTE | 2022-10-03 07:14 | NUR ---
SHIFT SUMMARY; NO ACUTE CHANGES OVERNIGHT. THE PT RESETED IN BED T/O THE NIGHT. THE PT REQUESTED PAIN MEDICATION FREQUENTLY, THE PT DESCRIBES HER PAIN "SHE FEELS LIKE SHE SWALLOWED A ROCK". THE PT DENIES ANY CHEST PAIN/PRESSURE T/O THE NIGHT. NO N/V T/O THE NIGHT. CURRENTLY THE PT IS RESTING IN BED WITH THE BED IN THE LOWEST POSITION AND THE CALL LIGHT AT BEDSIDE.
--- NOTE | 2022-10-03 17:54 | NUR ---
SHIFT SUMMARY NO ACUTE CHANGES DURING SHIFT. PT ALERT AND ORIENTED. CALLS APPROPRIATELY. PT WITH CONTINUED ABDOMINAL PAIN, MEDICATED WITH PRN FENTANYL Q 2-3 HRS. DIET ADVANCED TO MECH SOFT, PT TOLERATING. PT REMAINS ON RA, INDEPENDENT IN ROOM. WILL CONTINUE TO MONITOR. CALL LIGHT WITHIN REACH.
--- NOTE | 2022-10-03 19:37 | NUR ---
ASSISTED BASSEM TO BED AFTER AMBULATING HIM TO COMMODE. HE ATTEMPTED X2 TO HAVE A BM, BUT WAS UNABLE TO PASS THE LARGE FIRM BM IN RECTAL VAULT THAT WAS PALPATED WHILE COMPLETING PERICARE. ONLY A SMEAR WAS NOTED ON PAPER. PULL UP STYLE BRIEF PLACED ON BASSEM WELL SLIP RESISTANT XXL SOCKS. BASSEM WAS MADE COMFORTABLE AND CALL RUGGIERO PLACED IN HAND. BED LOW AND LOCKED, BED ALARM ON AND ACTIVE. STATES THAT HE IS TIRED, BUT HAS TOLERATED ACITIVITY AT THIS TIME. DENIES FURTHER NEEDS OR WANTS AT THIS TIME. WILL CONTINUE TO MONITOR AND ADDRESS NEEDS THEY ARISE.
--- NOTE | 2022-10-04 06:10 | NUR ---
LYING IN SEMI FOWLERS WITH EYES CLOSED. SPOUSE IS IN CHAIR AT BEDSIDE BY WINDOW. PAIN HAS BEEN MANAGED WITH FENT IVP PRN. PER PT REQUEST, NAME OF MED IS WITHHELD DURING ADMINISTERATION WHEN SPOUSE IS AT BEDSIDE SINCE HE DOESN'T APPROVE OF HER TAKING FENT. SHE IS INDEPENDENT IN THE ROOM. ABLE TO TOLERATE DIET WITHOUOT N/V. CORRENTLY DENIES PAIN, DISCOMFORT, OR FURTHER NEEDS. SAFETY MEASURES IN PLACE. WILL GIVE HAND OFF TO ONCOMING SHIFT USING SBAR DURING BEDSIDE REPORT. WILL CONTINUE TO MONITOR AND ADDRESS NEEDS THEY ARISE.
[2022-10-04] MEDS ORDERED: ONDA4ODT MM (12:22)
[2022-10-04] MEDS ORDERED: CREON DR 12,001 EACH PO (12:22)
--- NOTE | 2022-10-04 13:19 | NUR ---
DISCHARGE SUMMARY DISCHARGE, FOLLOWUP, AND MEDICATION INSTRUCTIONS GIVEN TO PT. PT VOICED COMPLETE UNDERSTANDING AND HAS NO QUESTIONS AT THIS TIME. MEDIPORT DEACCESSED FOLLOWING HEPARIN FLUSH. PT LEFT WITH .
== END 2022-10-04 13:31 | disposition home or self-care (01) | DRG 385 ==
LOC: ER 23:14 → MEDS 23:15 → ENPENDDIS 10-04 12:10 → MEDS 10-04 13:31
PROVIDERS: Emergency Medicine; Family Medicine; ADMIT Student in an Organized Health Care Education/Training Program
DX: K50.80 Crohn's disease of both small and large intestine without complications (principal); K85.90 Acute pancreatitis without necrosis or infection, unspecified; K86.1 Other chronic pancreatitis; G43.909 Migraine, unspecified, not intractable, without status migrainosus; K52.9 Noninfective gastroenteritis and colitis, unspecified; G40.909 Epilepsy, unspecified, not intractable, without status epilepticus; M25.551 Pain in right hip; D64.9 Anemia, unspecified; F11.10 Opioid abuse, uncomplicated; M79.7 Fibromyalgia; I73.00 Raynaud's syndrome without gangrene; F17.210 Nicotine dependence, cigarettes, uncomplicated; K25.9 Gastric ulcer, unspecified as acute or chronic, without hemorrhage or perforation; L73.2 Hidradenitis suppurativa; E55.9 Vitamin D deficiency, unspecified; M85.80 Other specified disorders of bone density and structure, unspecified site; R53.82 Chronic fatigue, unspecified; F32.A Depression, unspecified; F41.9 Anxiety disorder, unspecified; Z96.652 Presence of left artificial knee joint; Z91.038 Other insect allergy status; Z88.5 Allergy status to narcotic agent; Z90.49 Acquired absence of other specified parts of digestive tract; Z98.890 Other specified postprocedural states; Z88.8 Allergy status to other drugs, medicaments and biological substances; Z98.51 Tubal ligation status; Z86.14 Personal history of Methicillin resistant Staphylococcus aureus infection; Z79.899 Other long term (current) drug therapy
CPT/HCPCS: 80053; 81001; 83690; 83735; 85025; 96372; 96374; 96375; 96376; 99285; A9270; C9113; G0378; J1170; J1200; J1642; J1650; J2405; J3010; J7030

== ENCOUNTER 2022-10-31 02:23 | Day surgery (SDC) | payer OTHER ==
[~2022-10-31 02:23] MED LIST changes: +CREON DR 12,001 EACH PO
== END 2022-10-31 08:42 | disposition home or self-care (01) ==
LOC: ATC 02:23
DX: R78.81 Bacteremia (principal); C56.1 Malignant neoplasm of right ovary; Z87.891 Personal history of nicotine dependence
CPT/HCPCS: 96523; J1642

== ENCOUNTER 2022-10-31 19:03 | Emergency (ER) | payer OTHER ==
[~2022-10-31] VITALS: Ht 167.6 cm; Wt 63.5 kg
[2022-10-31 20:47] LABS: Source, Urine Clean Catch
[2022-10-31 20:51] LABS: BASOPHILS ABSOLUTE AUTO 0.04 K/mm3 (0.00-0.23); BASOPHILS PERCENT AUTO 1 % (0-2); EOSINOPHILS ABSOLUTE AUTO 0.02 K/mm3 (0.00-0.68); EOSINOPHILS PERCENT AUTO 0 % (0-6); Hematocrit 35.4 % (33.0-51.0); Hemoglobin 11.9 g/dL (11.5-16.0); IMMATURE GRAN ABSOLUTE AUTO 0.02 K/mm3 (0.00-0.10); IMMATURE GRAN PERCENT AUTO 0 % (0-1); LYMPHOCYTES PERCENT AUTO 14 % (21-46); MONOCYTES ABSOLUTE AUTO 0.39 K/mm3 (0.16-1.47); MONOCYTES PERCENT AUTO 4 % (4-13); Mean Corpuscular HGB 28.5 pg (26.0-34.0); Mean Corpuscular HGB Conc 33.6 g/dL (31.5-36.5); Mean Corpuscular Volume 85 fL (80-100); Mean Platelet Volume 10.4 fL (9.1-12.4); NEUTROPHILS ABSOLUTE AUTO 7.16 K/mm3 (1.96-9.15); NEUTROPHILS PERCENT AUTO 81 % (41-73); Platelet Count 301 K/mm3 (150-400); RDW Coefficient Variation 14.5 % (11.7-14.2); RDW Standard Deviation 44.9 fL (35.1-46.3); Red Blood Cell Count 4.17 M/mm3 (3.80-5.20); White Blood Cell Count 8.83 K/mm3 (4.00-11.30)
[2022-10-31 20:55] LABS: Appearance, Urine Clear (Clear); Bilirubin, Urine Neg (Neg); Blood, Urine Neg (Neg); Color, Urine Yellow (P-Yellow); Glucose Qualitative, Urine Neg (Neg); Ketones, Urine Neg (Neg); Leukocyte Esterase, Urine Neg (Neg); Nitrite, Urine Neg (Neg); Protein, Urine Neg (Neg); Specific Gravity, Urine 1.025 (1.003-1.022); Urobilinogen, Urine NORM (Normal)
[2022-10-31 21:09] LABS: Albumin/Globulin Ratio 0.7 (0.8-1.8); Bilirubin, Total 0.2 mg/dL (0.1-1.0); Bun/Creatinine Ratio 13.5 (12.0-20.0); Calcium, Blood 8.2 mg/dL (8.5-10.1); Creatinine, Blood 0.59 mg/dL (0.40-1.00); Globulin, Blood 4.3 g/dL (2.2-4.0); Potassium, Blood 3.7 mmol/L (3.5-5.5); Total Protein, Blood 7.3 g/dL (6.4-8.2)
[2022-10-31 22:56] LABS: Influenza A, PCR NEGATIVE (NEGATIVE); Influenza B, PCR NEGATIVE (NEGATIVE); Resp Syncytial Virus, PCR NEGATIVE (NEGATIVE); SARS-Cov-2 (COVID-19) PCR, MMC NEGATIVE (NEGATIVE)
== END 2022-10-31 23:50 | disposition home or self-care (01) ==
LOC: ER 19:03
PROVIDERS: Emergency Medicine; Student in an Organized Health Care Education/Training Program
DX: R50.9 Fever, unspecified (principal); K50.90 Crohn's disease, unspecified, without complications; F17.210 Nicotine dependence, cigarettes, uncomplicated; Z95.828 Presence of other vascular implants and grafts; Z88.5 Allergy status to narcotic agent; Z88.8 Allergy status to other drugs, medicaments and biological substances; Z91.038 Other insect allergy status; Z79.899 Other long term (current) drug therapy; Z20.822 Contact with and (suspected) exposure to COVID-19
CPT/HCPCS: 0241U; 71045; 80053; 81003; 83605; 85025; A9270; J0696; J1642

== ENCOUNTER 2022-11-21 06:01 | Emergency (ER) | payer OTHER ==
[~2022-11-21] VITALS: Ht 167.6 cm; Wt 62.1 kg
[2022-11-21] MEDS ORDERED: BUSPIRONE HCL10 M6 PO (06:37)
[2022-11-21] MEDS ORDERED: OXYC5 PO (06:40)
[2022-11-21] MEDS ORDERED: CREON DR 36,001 EACH PO (06:41)
[2022-11-21] MEDS ORDERED: RIZATRIPTAN5 M1 PO (06:41)
[2022-11-21] MEDS ORDERED: TOPI15C (06:41)
[2022-11-21] MEDS ORDERED: LOMOTIL 2.5-0.1 EACH PO (06:41)
== END 2022-11-21 08:10 | disposition home or self-care (01) ==
LOC: ER 06:01
DX: S93.402A Sprain of unspecified ligament of left ankle, initial encounter (principal); M79.7 Fibromyalgia; G40.909 Epilepsy, unspecified, not intractable, without status epilepticus; G43.909 Migraine, unspecified, not intractable, without status migrainosus; F17.210 Nicotine dependence, cigarettes, uncomplicated; Z91.048 Other nonmedicinal substance allergy status; Z88.8 Allergy status to other drugs, medicaments and biological substances; Z88.6 Allergy status to analgesic agent; Z88.5 Allergy status to narcotic agent; Z79.899 Other long term (current) drug therapy; X50.1XXA Overexertion from prolonged static or awkward postures, initial encounter; Y93.01 Activity, walking, marching and hiking
CPT/HCPCS: 73610; 73620; 96372; 99283-25; A9270; J1885

== ENCOUNTER 2022-12-04 20:37 | Emergency (ER) | payer OTHER ==
[~2022-12-04] VITALS: Ht 167.6 cm; Wt 49.9 kg
[~2022-12-04 20:37] MED LIST changes: +BUSPIRONE HCL10 M6 PO; +CREON DR 36,001 EACH PO; +LOMOTIL 2.5-0.1 EACH PO; +RIZATRIPTAN5 M1 PO; +TOPI15C
[2022-12-04 21:04] VITALS: BP 127/93
[2022-12-04 21:35] LABS: BASOPHILS ABSOLUTE AUTO 0.06 K/mm3 (0.00-0.23); BASOPHILS PERCENT AUTO 1 % (0-2); EOSINOPHILS ABSOLUTE AUTO 0.23 K/mm3 (0.00-0.68); EOSINOPHILS PERCENT AUTO 2 % (0-6); Hematocrit 38.5 % (33.0-51.0); IMMATURE GRAN ABSOLUTE AUTO 0.02 K/mm3 (0.00-0.10); IMMATURE GRAN PERCENT AUTO 0 % (0-1); LYMPHOCYTES ABSOLUTE AUTO 2.74 K/mm3 (0.84-5.20); LYMPHOCYTES PERCENT AUTO 26 % (21-46); MONOCYTES ABSOLUTE AUTO 0.62 K/mm3 (0.16-1.47); MONOCYTES PERCENT AUTO 6 % (4-13); Mean Corpuscular HGB 28.1 pg (26.0-34.0); Mean Corpuscular HGB Conc 33.8 g/dL (31.5-36.5); Mean Corpuscular Volume 83 fL (80-100); Mean Platelet Volume 10.2 fL (9.1-12.4); NEUTROPHILS ABSOLUTE AUTO 7.04 K/mm3 (1.96-9.15); NEUTROPHILS PERCENT AUTO 66 % (41-73); Platelet Count 353 K/mm3 (150-400); RDW Coefficient Variation 14.6 % (11.7-14.2); RDW Standard Deviation 44.8 fL (35.1-46.3); Red Blood Cell Count 4.62 M/mm3 (3.80-5.20); White Blood Cell Count 10.71 K/mm3 (4.00-11.30)
[2022-12-04 22:02] LABS: Albumin, Blood 3.6 g/dL (3.4-5.0); Albumin/Globulin Ratio 0.7 (0.8-1.8); Bilirubin, Total 0.2 mg/dL (0.1-1.0); Bun/Creatinine Ratio 18.7 (12.0-20.0); Calcium, Blood 9.1 mg/dL (8.5-10.1); Creatinine, Blood 0.59 mg/dL (0.40-1.00); Potassium, Blood 3.8 mmol/L (3.5-5.5); Total Protein, Blood 8.6 g/dL (6.4-8.2)
[2022-12-04] MEDS ORDERED: ONDA4ODT MM (23:03)
== END 2022-12-04 23:15 | disposition home or self-care (01) ==
LOC: ER 20:37
PROVIDERS: Physician Assistant
DX: K85.90 Acute pancreatitis without necrosis or infection, unspecified (principal); Z88.8 Allergy status to other drugs, medicaments and biological substances; Z91.030 Bee allergy status; Z88.5 Allergy status to narcotic agent; Z88.1 Allergy status to other antibiotic agents; Z79.899 Other long term (current) drug therapy; D64.9 Anemia, unspecified; G43.909 Migraine, unspecified, not intractable, without status migrainosus; F17.210 Nicotine dependence, cigarettes, uncomplicated
CPT/HCPCS: 36415; 80053; 83690; 85025; 96374; 96375; 99284-25; A9270; J0780; J1200; J2405; J7030

== ENCOUNTER 2022-12-10 02:51 | Day surgery (SDC) | payer OTHER ==
[2022-12-10 11:00] VITALS: BP 112/45
== END 2022-12-10 11:59 | disposition home or self-care (01) ==
LOC: ATC 02:51
DX: K50.80 Crohn's disease of both small and large intestine without complications (principal)
CPT/HCPCS: 96365; J3380; J7050

== ENCOUNTER 2022-12-17 00:28 | Day surgery (SDC) | payer OTHER ==
[2022-12-17 10:54] VITALS: BP 123/75
[2022-12-17 11:37] LABS: BASOPHILS ABSOLUTE AUTO 0.04 K/mm3 (0.00-0.23); BASOPHILS PERCENT AUTO 1 % (0-2); EOSINOPHILS ABSOLUTE AUTO 0.17 K/mm3 (0.00-0.68); EOSINOPHILS PERCENT AUTO 3 % (0-6); Hematocrit 35.8 % (33.0-51.0); Hemoglobin 11.7 g/dL (11.5-16.0); IMMATURE GRAN ABSOLUTE AUTO 0.01 K/mm3 (0.00-0.10); IMMATURE GRAN PERCENT AUTO 0 % (0-1); LYMPHOCYTES ABSOLUTE AUTO 2.13 K/mm3 (0.84-5.20); LYMPHOCYTES PERCENT AUTO 35 % (21-46); MONOCYTES ABSOLUTE AUTO 0.46 K/mm3 (0.16-1.47); MONOCYTES PERCENT AUTO 8 % (4-13); Mean Corpuscular HGB 28.2 pg (26.0-34.0); Mean Corpuscular HGB Conc 32.7 g/dL (31.5-36.5); Mean Corpuscular Volume 86 fL (80-100); Mean Platelet Volume 10.4 fL (9.1-12.4); NEUTROPHILS ABSOLUTE AUTO 3.29 K/mm3 (1.96-9.15); NEUTROPHILS PERCENT AUTO 54 % (41-73); Platelet Count 331 K/mm3 (150-400); RDW Coefficient Variation 14.1 % (11.7-14.2); RDW Standard Deviation 44.7 fL (35.1-46.3); Red Blood Cell Count 4.15 M/mm3 (3.80-5.20)
[2022-12-17 12:23] LABS: Albumin, Blood 3.5 g/dL (3.4-5.0); Albumin/Globulin Ratio 0.8 (0.8-1.8); Bilirubin, Total 0.3 mg/dL (0.1-1.0); Bun/Creatinine Ratio 17.9 (12.0-20.0); Calcium, Blood 8.4 mg/dL (8.5-10.1); Creatinine, Blood 0.62 mg/dL (0.40-1.00); Globulin, Blood 4.2 g/dL (2.2-4.0); Percent Saturation 18.5 % (15.0-50.0); Potassium, Blood 2.9 mmol/L (3.5-5.5); Total Protein, Blood 7.7 g/dL (6.4-8.2)
== END 2022-12-17 11:09 | disposition home or self-care (01) ==
LOC: ATC 00:28
PROVIDERS: Internal Medicine Gastroenterology
DX: K50.812 Crohn's disease of both small and large intestine with intestinal obstruction (principal); M85.851 Other specified disorders of bone density and structure, right thigh; M85.852 Other specified disorders of bone density and structure, left thigh; E55.9 Vitamin D deficiency, unspecified
CPT/HCPCS: 36592; 80053; 82306; 82607; 82728; 82746; 83540; 83550; 85025

== ENCOUNTER 2022-12-24 01:25 | Day surgery (SDC) | payer OTHER ==
[2022-12-24 10:50] VITALS: BP 122/80
== END 2022-12-24 10:50 | disposition home or self-care (01) ==
LOC: ATC 01:25
DX: Z45.2 Encounter for adjustment and management of vascular access device (principal); K50.90 Crohn's disease, unspecified, without complications
CPT/HCPCS: 99212

== ENCOUNTER 2022-12-31 03:44 | Day surgery (SDC) | payer OTHER ==
[2022-12-31 11:00] VITALS: BP 117/83
== END 2022-12-31 11:00 | disposition home or self-care (01) ==
LOC: ATC 03:44
DX: Z45.2 Encounter for adjustment and management of vascular access device (principal); K50.90 Crohn's disease, unspecified, without complications
CPT/HCPCS: 99211

== ENCOUNTER 2023-01-07 02:53 | Day surgery (SDC) | payer OTHER ==
[2023-01-07 10:28] VITALS: BP 121/90
== END 2023-01-07 10:38 | disposition home or self-care (01) ==
LOC: ATC 02:53
DX: K50.90 Crohn's disease, unspecified, without complications (principal); C56.9 Malignant neoplasm of unspecified ovary
CPT/HCPCS: 99211

== ENCOUNTER 2023-01-14 03:17 | Day surgery (SDC) | payer OTHER ==
[2023-01-14 10:41] VITALS: BP 128/75
== END 2023-01-14 10:58 | disposition home or self-care (01) ==
LOC: ATC 03:17
DX: K50.90 Crohn's disease, unspecified, without complications (principal); C56.1 Malignant neoplasm of right ovary; Z79.01 Long term (current) use of anticoagulants; Z87.891 Personal history of nicotine dependence; Z79.899 Other long term (current) drug therapy
CPT/HCPCS: 99211

== ENCOUNTER 2023-01-21 03:38 | Day surgery (SDC) | payer OTHER ==
[2023-01-21 10:41] VITALS: BP 112/65
== END 2023-01-21 10:41 | disposition home or self-care (01) ==
LOC: ATC 03:38
DX: K50.90 Crohn's disease, unspecified, without complications (principal)
CPT/HCPCS: 99212

== ENCOUNTER 2023-02-25 01:04 | Day surgery (SDC) | payer OTHER ==
[~2023-02-25 01:04] MED LIST changes: +AMOCLA875 PO; +Calcium Carbon500 MG PO; +ENTYVIO300 M1 IV; +VISBIOME 112.51 EACH PO
[2023-02-25 10:39] VITALS: BP 113/67
== END 2023-02-25 10:48 | disposition home or self-care (01) ==
LOC: ATC 01:04
DX: K50.80 Crohn's disease of both small and large intestine without complications (principal); E55.9 Vitamin D deficiency, unspecified; F17.210 Nicotine dependence, cigarettes, uncomplicated; F32.9 Major depressive disorder, single episode, unspecified; F41.9 Anxiety disorder, unspecified
CPT/HCPCS: 99211

== ENCOUNTER 2023-03-04 03:00 | Day surgery (SDC) | payer OTHER ==
[2023-03-04 11:16] VITALS: BP 110/64
== END 2023-03-04 11:16 | disposition home or self-care (01) ==
LOC: ATC 03:00
DX: K50.80 Crohn's disease of both small and large intestine without complications (principal); G43.909 Migraine, unspecified, not intractable, without status migrainosus; G40.909 Epilepsy, unspecified, not intractable, without status epilepticus; E55.9 Vitamin D deficiency, unspecified; F32.9 Major depressive disorder, single episode, unspecified; F41.9 Anxiety disorder, unspecified; F17.210 Nicotine dependence, cigarettes, uncomplicated; R74.01 Elevation of levels of liver transaminase levels; Z78.0 Asymptomatic menopausal state; Z88.9 Allergy status to unspecified drugs, medicaments and biological substances; Z88.5 Allergy status to narcotic agent
CPT/HCPCS: 99212

== ENCOUNTER 2023-03-10 22:14 | Emergency (ER) | payer OTHER ==
[~2023-03-10] VITALS: Ht 167.6 cm; Wt 57.6 kg
[2023-03-10 23:13] LABS: BASOPHILS ABSOLUTE AUTO 0.02 K/mm3 (0.00-0.23); BASOPHILS PERCENT AUTO 0 % (0-2); EOSINOPHILS ABSOLUTE AUTO 0.01 K/mm3 (0.00-0.68); EOSINOPHILS PERCENT AUTO 0 % (0-6); Hematocrit 34.1 % (33.0-51.0); Hemoglobin 11.5 g/dL (11.5-16.0); IMMATURE GRAN ABSOLUTE AUTO 0.01 K/mm3 (0.00-0.10); IMMATURE GRAN PERCENT AUTO 0 % (0-1); LYMPHOCYTES ABSOLUTE AUTO 0.98 K/mm3 (0.84-5.20); LYMPHOCYTES PERCENT AUTO 15 % (21-46); MONOCYTES ABSOLUTE AUTO 0.26 K/mm3 (0.16-1.47); MONOCYTES PERCENT AUTO 4 % (4-13); Mean Corpuscular HGB 28.9 pg (26.0-34.0); Mean Corpuscular HGB Conc 33.7 g/dL (31.5-36.5); Mean Corpuscular Volume 86 fL (80-100); Mean Platelet Volume 10.3 fL (9.1-12.4); NEUTROPHILS ABSOLUTE AUTO 5.14 K/mm3 (1.96-9.15); NEUTROPHILS PERCENT AUTO 80 % (41-73); Platelet Count 220 K/mm3 (150-400); RDW Coefficient Variation 14.1 % (11.7-14.2); RDW Standard Deviation 44.3 fL (35.1-46.3); Red Blood Cell Count 3.98 M/mm3 (3.80-5.20); White Blood Cell Count 6.42 K/mm3 (4.00-11.30)
[2023-03-10 23:49] LABS: Albumin, Blood 3.3 g/dL (3.4-5.0); Albumin/Globulin Ratio 0.8 (0.8-1.8); Bilirubin, Total 0.4 mg/dL (0.1-1.0); Bun/Creatinine Ratio 11.5 (12.0-20.0); Calcium, Blood 8.5 mg/dL (8.5-10.1); Creatinine, Blood 0.7 mg/dL (0.40-1.00); Globulin, Blood 3.9 g/dL (2.2-4.0); Potassium, Blood 3.4 mmol/L (3.5-5.5); Total Protein, Blood 7.2 g/dL (6.4-8.2)
[2023-03-11 01:00] VITALS: BP 132/80
[2023-03-11] MEDS ORDERED: CIPR500 PO (03:05)
[2023-03-11] MEDS ORDERED: METR500 PO (03:05)
[2023-03-11] MEDS ORDERED: ONDA4ODT MM (03:05)
== END 2023-03-11 03:25 | disposition home or self-care (01) ==
LOC: ER 22:14
PROVIDERS: Student in an Organized Health Care Education/Training Program
DX: K52.9 Noninfective gastroenteritis and colitis, unspecified (principal); Z87.19 Personal history of other diseases of the digestive system
CPT/HCPCS: 74177; 80053; 83605; 83690; 84484; 85025; 93005; 93010; 96361; 96374-59; 96375; 99284-25; A9270; J1790; J1885; J2405; J7030; Q9967

== ENCOUNTER 2023-03-11 03:50 | Day surgery (SDC) | payer OTHER ==
[~2023-03-11 03:50] MED LIST changes: +CIPR500 PO
[2023-03-11 10:55] VITALS: BP 126/68
== END 2023-03-11 10:55 | disposition home or self-care (01) ==
LOC: ATC 03:50
DX: K50.80 Crohn's disease of both small and large intestine without complications (principal); G43.909 Migraine, unspecified, not intractable, without status migrainosus; G40.909 Epilepsy, unspecified, not intractable, without status epilepticus; F17.210 Nicotine dependence, cigarettes, uncomplicated; E55.9 Vitamin D deficiency, unspecified; R74.01 Elevation of levels of liver transaminase levels; F32.9 Major depressive disorder, single episode, unspecified; F41.9 Anxiety disorder, unspecified; Z78.0 Asymptomatic menopausal state
CPT/HCPCS: 99211

== ENCOUNTER 2023-03-18 14:14 | Day surgery (SDC) | payer OTHER ==
[2023-03-18 14:30] VITALS: BP 112/80
== END 2023-03-18 14:46 | disposition home or self-care (01) ==
LOC: ATC 14:14
DX: K50.812 Crohn's disease of both small and large intestine with intestinal obstruction (principal); K59.09 Other constipation; E55.9 Vitamin D deficiency, unspecified; R74.01 Elevation of levels of liver transaminase levels; F17.210 Nicotine dependence, cigarettes, uncomplicated; F17.290 Nicotine dependence, other tobacco product, uncomplicated; F32.A Depression, unspecified; G43.909 Migraine, unspecified, not intractable, without status migrainosus; G40.909 Epilepsy, unspecified, not intractable, without status epilepticus; Z78.0 Asymptomatic menopausal state; Z88.5 Allergy status to narcotic agent; Z88.9 Allergy status to unspecified drugs, medicaments and biological substances
CPT/HCPCS: 99212

== ENCOUNTER 2023-03-25 01:00 | Day surgery (SDC) | payer OTHER ==
[2023-03-25 10:37] VITALS: BP 130/87
[2023-03-25 10:55] VITALS: BP 140/68
== END 2023-03-25 10:55 | disposition home or self-care (01) ==
LOC: ATC 01:00
DX: K50.90 Crohn's disease, unspecified, without complications (principal); Z88.8 Allergy status to other drugs, medicaments and biological substances; Z88.6 Allergy status to analgesic agent; Z88.1 Allergy status to other antibiotic agents; Z88.5 Allergy status to narcotic agent; Z79.899 Other long term (current) drug therapy; F17.210 Nicotine dependence, cigarettes, uncomplicated
CPT/HCPCS: 99211

== ENCOUNTER 2023-03-30 13:47 | Day surgery (SDC) | payer OTHER ==
[2023-03-30 13:58] VITALS: BP 112/79
== END 2023-03-30 14:15 | disposition home or self-care (01) ==
LOC: ATC 13:47
DX: K50.812 Crohn's disease of both small and large intestine with intestinal obstruction (principal); K59.09 Other constipation; E55.9 Vitamin D deficiency, unspecified; R74.01 Elevation of levels of liver transaminase levels; F32.A Depression, unspecified; F17.210 Nicotine dependence, cigarettes, uncomplicated; Z78.0 Asymptomatic menopausal state
CPT/HCPCS: 99211

== ENCOUNTER 2023-04-01 04:07 | Day surgery (SDC) | payer OTHER ==
[2023-04-01 10:20] VITALS: BP 128/89
[2023-04-02] MEDS ORDERED: ALBU90OI INH (15:39)
== END 2023-04-01 11:25 | disposition home or self-care (01) ==
LOC: ATC 04:07
DX: K50.90 Crohn's disease, unspecified, without complications (principal); Z88.1 Allergy status to other antibiotic agents; Z88.5 Allergy status to narcotic agent; Z88.8 Allergy status to other drugs, medicaments and biological substances; Z79.899 Other long term (current) drug therapy; F17.210 Nicotine dependence, cigarettes, uncomplicated
CPT/HCPCS: 96365; J3380; J7050

== ENCOUNTER 2023-04-02 09:44 | Emergency (ER) | payer OTHER ==
[~2023-04-02] VITALS: Ht 167.6 cm; Wt 59.0 kg
[2023-04-02 10:29] LABS: BASOPHILS ABSOLUTE AUTO 0.04 K/mm3 (0.00-0.23); BASOPHILS PERCENT AUTO 1 % (0-2); EOSINOPHILS ABSOLUTE AUTO 0.09 K/mm3 (0.00-0.68); EOSINOPHILS PERCENT AUTO 1 % (0-6); Hematocrit 35.8 % (33.0-51.0); IMMATURE GRAN ABSOLUTE AUTO 0.01 K/mm3 (0.00-0.10); IMMATURE GRAN PERCENT AUTO 0 % (0-1); LYMPHOCYTES ABSOLUTE AUTO 1.82 K/mm3 (0.84-5.20); LYMPHOCYTES PERCENT AUTO 28 % (21-46); MONOCYTES ABSOLUTE AUTO 0.48 K/mm3 (0.16-1.47); MONOCYTES PERCENT AUTO 7 % (4-13); Mean Corpuscular HGB 28.3 pg (26.0-34.0); Mean Corpuscular HGB Conc 33.5 g/dL (31.5-36.5); Mean Corpuscular Volume 84 fL (80-100); Mean Platelet Volume 10.1 fL (9.1-12.4); NEUTROPHILS ABSOLUTE AUTO 4.07 K/mm3 (1.96-9.15); NEUTROPHILS PERCENT AUTO 62 % (41-73); Platelet Count 286 K/mm3 (150-400); RDW Coefficient Variation 14.1 % (11.7-14.2); RDW Standard Deviation 43.5 fL (35.1-46.3); Red Blood Cell Count 4.24 M/mm3 (3.80-5.20); White Blood Cell Count 6.51 K/mm3 (4.00-11.30)
[2023-04-02 10:53] LABS: Albumin/Globulin Ratio 0.6 (0.8-1.8); Bilirubin, Total 0.3 mg/dL (0.1-1.0); Bun/Creatinine Ratio 10.4 (12.0-20.0); Calcium, Blood 8.6 mg/dL (8.5-10.1); Creatinine, Blood 0.67 mg/dL (0.40-1.00); Globulin, Blood 4.9 g/dL (2.2-4.0); Total Protein, Blood 7.9 g/dL (6.4-8.2)
[2023-04-02 15:36] VITALS: BP 96/61
[2023-04-02] MEDS ORDERED: ALBU90OI INH (15:39)
== END 2023-04-02 16:01 | disposition home or self-care (01) ==
LOC: ER 09:44
PROVIDERS: Physician Assistant
DX: J20.9 Acute bronchitis, unspecified (principal); R07.81 Pleurodynia; Z91.030 Bee allergy status; Z88.8 Allergy status to other drugs, medicaments and biological substances; Z88.7 Allergy status to serum and vaccine; Z88.5 Allergy status to narcotic agent; Z88.6 Allergy status to analgesic agent; Z87.19 Personal history of other diseases of the digestive system
CPT/HCPCS: 71046; 80053; 83690; 84484; 85025; 93005; 93010; 94644; 94664; 96374; 96375; 99284-25; A9270; J1100; J2765; J7030

== ENCOUNTER 2023-04-06 02:11 | Day surgery (SDC) | payer OTHER ==
[~2023-04-06 02:11] MED LIST changes: +ALBU90OI INH
[2023-04-06 08:31] VITALS: BP 131/83
== END 2023-04-06 08:44 | disposition home or self-care (01) ==
LOC: ATC 02:11
DX: K50.80 Crohn's disease of both small and large intestine without complications (principal); K59.09 Other constipation; F17.200 Nicotine dependence, unspecified, uncomplicated; F32.A Depression, unspecified; F41.9 Anxiety disorder, unspecified
CPT/HCPCS: 99212

== ENCOUNTER 2023-04-15 03:59 | Day surgery (SDC) | payer OTHER ==
[2023-04-15 10:42] VITALS: BP 128/83
== END 2023-04-15 10:43 | disposition home or self-care (01) ==
LOC: ATC 03:59
DX: K50.812 Crohn's disease of both small and large intestine with intestinal obstruction (principal); K52.9 Noninfective gastroenteritis and colitis, unspecified; K59.09 Other constipation; E55.9 Vitamin D deficiency, unspecified; R74.01 Elevation of levels of liver transaminase levels; F32.A Depression, unspecified; F17.210 Nicotine dependence, cigarettes, uncomplicated; Z78.0 Asymptomatic menopausal state
CPT/HCPCS: 99211

== ENCOUNTER 2023-04-19 07:12 | Emergency (ER) | payer OTHER ==
[~2023-04-19] VITALS: Ht 167.6 cm; Wt 59.0 kg
[2023-04-19 08:55] VITALS: BP 122/70
== END 2023-04-19 08:56 | disposition home or self-care (01) ==
LOC: ER 07:12
DX: S66.911A Strain of unspecified muscle, fascia and tendon at wrist and hand level, right hand, initial encounter (principal); Z87.19 Personal history of other diseases of the digestive system; Z91.030 Bee allergy status; Z88.8 Allergy status to other drugs, medicaments and biological substances; Z88.7 Allergy status to serum and vaccine; Z88.5 Allergy status to narcotic agent; Z88.6 Allergy status to analgesic agent; X50.1XXA Overexertion from prolonged static or awkward postures, initial encounter
CPT/HCPCS: 29125; 73110; 96374-59; 99283-25; J1100

== ENCOUNTER 2023-04-22 01:09 | Day surgery (SDC) | payer OTHER ==
[2023-04-22 10:55] VITALS: BP 121/87
== END 2023-04-22 11:06 | disposition home or self-care (01) ==
LOC: ATC 01:09
DX: K50.812 Crohn's disease of both small and large intestine with intestinal obstruction (principal); K52.9 Noninfective gastroenteritis and colitis, unspecified; E55.9 Vitamin D deficiency, unspecified; F32.A Depression, unspecified
CPT/HCPCS: 99211

== ENCOUNTER 2023-04-29 02:18 | Day surgery (SDC) | payer OTHER ==
[2023-04-29 11:10] VITALS: BP 128/88
[2023-04-30] MEDS ORDERED: CIPR500 PO (07:31)
[2023-05-03] MEDS ORDERED: OXYC5 PO (13:30)
[2023-05-06] MEDS ORDERED: TOPI100 PO (22:17)
[2023-05-07] MEDS ORDERED: CEFTRIAXONE2 G1 IV (14:06)
[2023-05-07] MEDS ORDERED: LEVO750 PO (14:06)
[2023-05-07] MEDS ORDERED: SULFAMETHOXAZO1 EAC1 PO (14:07)
[2023-05-07] MEDS ORDERED: ENOX80I SC (14:08)
== END 2023-04-29 11:18 | disposition home or self-care (01) ==
LOC: ATC 02:18
DX: K50.812 Crohn's disease of both small and large intestine with intestinal obstruction (principal); K52.9 Noninfective gastroenteritis and colitis, unspecified; E55.9 Vitamin D deficiency, unspecified; R74.01 Elevation of levels of liver transaminase levels; Z78.0 Asymptomatic menopausal state; F32.A Depression, unspecified; D72.829 Elevated white blood cell count, unspecified; Z20.822 Contact with and (suspected) exposure to COVID-19; Z91.09 Other allergy status, other than to drugs and biological substances; Z88.5 Allergy status to narcotic agent; Z88.6 Allergy status to analgesic agent; Z88.8 Allergy status to other drugs, medicaments and biological substances; Z91.030 Bee allergy status; Z79.51 Long term (current) use of inhaled steroids; Z79.2 Long term (current) use of antibiotics; Z79.899 Other long term (current) drug therapy; R50.9 Fever, unspecified
CPT/HCPCS: 0241U; 74177; 80053; 83690; 85025; 93005; 93010; 96361; 96374-59; 96375; 99211; 99284-25; A9270; J1100; J2405; J3010; J7030; Q9967

== ENCOUNTER 2023-04-29 22:08 | Emergency (ER) | payer OTHER ==
[~2023-04-29] VITALS: Ht 167.6 cm; Wt 59.0 kg
[2023-04-30 00:25] LABS: BASOPHILS ABSOLUTE AUTO 0.04 K/mm3 (0.00-0.23); BASOPHILS PERCENT AUTO 0 % (0-2); EOSINOPHILS ABSOLUTE AUTO 0.01 K/mm3 (0.00-0.68); EOSINOPHILS PERCENT AUTO 0 % (0-6); Hematocrit 37.6 % (33.0-51.0); Hemoglobin 12.5 g/dL (11.5-16.0); IMMATURE GRAN ABSOLUTE AUTO 0.05 K/mm3 (0.00-0.10); IMMATURE GRAN PERCENT AUTO 0 % (0-1); LYMPHOCYTES ABSOLUTE AUTO 1.53 K/mm3 (0.84-5.20); LYMPHOCYTES PERCENT AUTO 12 % (21-46); MONOCYTES ABSOLUTE AUTO 0.66 K/mm3 (0.16-1.47); MONOCYTES PERCENT AUTO 5 % (4-13); Mean Corpuscular HGB 27.5 pg (26.0-34.0); Mean Corpuscular HGB Conc 33.2 g/dL (31.5-36.5); Mean Corpuscular Volume 83 fL (80-100); Mean Platelet Volume 9.5 fL (9.1-12.4); NEUTROPHILS ABSOLUTE AUTO 10.74 K/mm3 (1.96-9.15); NEUTROPHILS PERCENT AUTO 82 % (41-73); Platelet Count 285 K/mm3 (150-400); RDW Coefficient Variation 14.6 % (11.7-14.2); RDW Standard Deviation 43.7 fL (35.1-46.3); Red Blood Cell Count 4.55 M/mm3 (3.80-5.20); White Blood Cell Count 13.03 K/mm3 (4.00-11.30)
[2023-04-30 02:49] LABS: Albumin/Globulin Ratio 0.6 (0.8-1.8); Bilirubin, Total 0.4 mg/dL (0.1-1.0); Bun/Creatinine Ratio 10.7 (12.0-20.0); Calcium, Blood 8.4 mg/dL (8.5-10.1); Creatinine, Blood 0.84 mg/dL (0.40-1.00); Globulin, Blood 4.8 g/dL (2.2-4.0); Total Protein, Blood 7.8 g/dL (6.4-8.2)
[2023-04-30 03:45] VITALS: BP 122/73
[2023-04-30 04:59] LABS: Influenza A, PCR NEGATIVE (NEGATIVE); Influenza B, PCR NEGATIVE (NEGATIVE); Resp Syncytial Virus, PCR NEGATIVE (NEGATIVE); SARS-Cov-2 (COVID-19) PCR, MMC NEGATIVE (NEGATIVE)
[2023-04-30] MEDS ORDERED: CIPR500 PO (07:31)
[2023-05-03] MEDS ORDERED: OXYC5 PO (13:30)
[2023-05-06] MEDS ORDERED: TOPI100 PO (22:17)
[2023-05-07] MEDS ORDERED: LEVO750 PO (14:06)
[2023-05-07] MEDS ORDERED: CEFTRIAXONE2 G1 IV (14:06)
[2023-05-07] MEDS ORDERED: SULFAMETHOXAZO1 EAC1 PO (14:07)
[2023-05-07] MEDS ORDERED: ENOX80I SC (14:08)
== END 2023-04-30 08:08 | disposition home or self-care (01) ==
LOC: ER 22:08
PROVIDERS: Physician Assistant; Student in an Organized Health Care Education/Training Program
DX: K50.90 Crohn's disease, unspecified, without complications (principal); D72.829 Elevated white blood cell count, unspecified; Z20.822 Contact with and (suspected) exposure to COVID-19; Z91.09 Other allergy status, other than to drugs and biological substances; Z88.5 Allergy status to narcotic agent; Z88.6 Allergy status to analgesic agent; Z88.8 Allergy status to other drugs, medicaments and biological substances; Z91.030 Bee allergy status; Z79.51 Long term (current) use of inhaled steroids; Z79.2 Long term (current) use of antibiotics; Z79.899 Other long term (current) drug therapy
CPT/HCPCS: 0241U; 74177; 80053; 83690; 85025; 93005; 93010; 96361; 96374-59; 96375; 99211; 99284-25; A9270; J1100; J2405; J3010; J7030; Q9967

== ENCOUNTER 2023-05-08 02:37 | Day surgery (SDC) | payer OTHER ==
[~2023-05-08 02:37] MED LIST changes: +ENOX80I SC; +LEVO750 PO; +SULFAMETHOXAZO1 EAC1 PO
[2023-05-08 09:01] VITALS: BP 127/90
== END 2023-05-08 09:25 | disposition home or self-care (01) ==
LOC: ATC 02:37
DX: A41.9 Sepsis, unspecified organism (principal); J18.9 Pneumonia, unspecified organism; K50.90 Crohn's disease, unspecified, without complications; E87.29 Other acidosis; K85.90 Acute pancreatitis without necrosis or infection, unspecified
CPT/HCPCS: J0696

== ENCOUNTER 2023-05-09 00:13 | Day surgery (SDC) | payer OTHER ==
[2023-05-09 10:20] VITALS: BP 117/93
== END 2023-05-09 10:21 | disposition home or self-care (01) ==
LOC: ATC 00:13
DX: A41.89 Other specified sepsis (principal); G43.909 Migraine, unspecified, not intractable, without status migrainosus; I73.00 Raynaud's syndrome without gangrene; J18.9 Pneumonia, unspecified organism; E87.20 Acidosis, unspecified; K50.90 Crohn's disease, unspecified, without complications
CPT/HCPCS: J0696

== ENCOUNTER 2023-05-14 04:42 | Day surgery (SDC) | payer OTHER ==
[2023-05-14 10:17] VITALS: BP 142/88
== END 2023-05-14 10:49 | disposition home or self-care (01) ==
LOC: ATC 04:42
DX: A41.89 Other specified sepsis (principal); J18.9 Pneumonia, unspecified organism; K50.90 Crohn's disease, unspecified, without complications; F17.210 Nicotine dependence, cigarettes, uncomplicated; Z88.6 Allergy status to analgesic agent; Z88.1 Allergy status to other antibiotic agents; Z88.8 Allergy status to other drugs, medicaments and biological substances; Z79.899 Other long term (current) drug therapy
CPT/HCPCS: 96365; J0696

== ENCOUNTER 2023-05-16 04:05 | Day surgery (SDC) | payer OTHER ==
[2023-05-16 10:03] VITALS: BP 116/85
== END 2023-05-16 10:25 | disposition home or self-care (01) ==
LOC: ATC 04:05
DX: A41.89 Other specified sepsis (principal); K50.90 Crohn's disease, unspecified, without complications; G43.909 Migraine, unspecified, not intractable, without status migrainosus; F17.210 Nicotine dependence, cigarettes, uncomplicated; J18.9 Pneumonia, unspecified organism; E87.20 Acidosis, unspecified
CPT/HCPCS: 96365; J0696

== ENCOUNTER 2023-05-17 00:12 | Day surgery (SDC) | payer OTHER ==
[2023-05-17 10:15] VITALS: BP 133/99
[2023-05-17 11:28] LABS: Hematocrit 31.1 % (33.0-51.0); Hemoglobin 10.3 g/dL (11.5-16.0); Mean Corpuscular HGB 27.5 pg (26.0-34.0); Mean Corpuscular HGB Conc 33.1 g/dL (31.5-36.5); Mean Corpuscular Volume 83 fL (80-100); Mean Platelet Volume 9.6 fL (9.1-12.4); Platelet Count 308 K/mm3 (150-400); RDW Coefficient Variation 15.6 % (11.7-14.2); RDW Standard Deviation 47.2 fL (35.1-46.3); Red Blood Cell Count 3.75 M/mm3 (3.80-5.20); White Blood Cell Count 5.15 K/mm3 (4.00-11.30)
--- NOTE | 2023-05-17 11:51 | NUR ---
PT HAD REQUESTED WE GET THE LAB ORDERS HER DR SENT TO [facility] SO THAT WE COULD DRAW HER LABS WHILE SHE IS HERE. LABS RECEIVED FROM OUTPATIENT LAB. [facility] CAME TO ROOM 1 IN [facility] AND KATHE THE PATIENTS LABS FROM LEFT AC VEIN. PT TO BRING IN FECAL SAMPLES THIS WEEK.
[2023-05-17 12:02] LABS: BASOPHILS PERCENT MAN 0 % (0-2); EOSINOPHILS PERCENT MAN 0 % (0-6); LYMPHOCYTES ABSOLUTE MAN 1.54 K/mm3 (0.84-5.20); LYMPHOCYTES PERCENT MAN 30 % (21-46); MONOCYTES ABSOLUTE MAN 0.25 K/mm3 (0.16-1.47); MONOCYTES PERCENT MAN 5 % (4-13); NEUTROPHILS ABSOLUTE MAN 3.34 K/mm3 (1.96-9.15); SEG NEUTROPHILS PERCENT MAN 65 % (41-73); TOTAL CELLS COUNTED 100
[2023-05-17 12:10] LABS: Albumin, Blood 3.1 g/dL (3.4-5.0); Albumin/Globulin Ratio 0.6 (0.8-1.8); Bilirubin, Total 0.1 mg/dL (0.1-1.0); Bun/Creatinine Ratio 16.8 (12.0-20.0); C-REACTIVE PROTEIN, EXT RANGE 2.16 mg/dL (0.000-0.300); Calcium, Blood 8.6 mg/dL (8.5-10.1); Creatinine, Blood 0.83 mg/dL (0.40-1.00); Globulin, Blood 4.9 g/dL (2.2-4.0); Percent Saturation 6.3 % (15.0-50.0); Potassium, Blood 3.4 mmol/L (3.5-5.5)
[2023-05-18 08:11] LABS: HBSAG SCREEN Negative (Negative); HCV ANTIBODY Reactive (Non Reactive); HEP B CORE AB, TOT Negative (Negative)
[2023-05-21 05:12] LABS: METHYLMALONIC ACID, SERUM 260 nmol/L (0-378)
[2023-05-21 14:12] LABS: QUANTIFERON MITOGEN VALUE >10.00 IU/mL (.); QUANTIFERON NIL VALUE 0.48 IU/mL (.); QUANTIFERON TB1 AG VALUE 0.45 IU/mL (.); QUANTIFERON TB2 AG VALUE 0.32 IU/mL (.); QUANTIFERON-TB GOLD PLUS Negative (Negative)
== END 2023-05-17 11:18 | disposition home or self-care (01) ==
LOC: ATC 00:12
PROVIDERS: Internal Medicine; Student in an Organized Health Care Education/Training Program
DX: A41.89 Other specified sepsis (principal); E87.6 Hypokalemia; K50.80 Crohn's disease of both small and large intestine without complications; M85.80 Other specified disorders of bone density and structure, unspecified site; Z72.0 Tobacco use
CPT/HCPCS: 36415; 80053; 82306; 82607; 82728; 83540; 83550; 83921; 85025; 86140; 86480; 86704; 86708; 86803; 87340; 96365; J0696

== ENCOUNTER 2023-05-19 01:48 | Day surgery (SDC) | payer OTHER ==
[2023-05-19 10:34] VITALS: BP 132/98
[2023-05-19 12:48] LABS: Percent Saturation 12.2 % (15.0-50.0)
[2023-05-19] MEDS ORDERED: Lovenox80 MG/0.8 SC (17:26)
== END 2023-05-19 10:52 | disposition home or self-care (01) ==
LOC: ATC 01:48
DX: A41.89 Other specified sepsis (principal); F17.210 Nicotine dependence, cigarettes, uncomplicated; J18.9 Pneumonia, unspecified organism; K50.90 Crohn's disease, unspecified, without complications; E87.20 Acidosis, unspecified; S40.022A Contusion of left upper arm, initial encounter; X58.XXXA Exposure to other specified factors, initial encounter; Z88.5 Allergy status to narcotic agent; Z88.8 Allergy status to other drugs, medicaments and biological substances; Z88.1 Allergy status to other antibiotic agents; Z91.030 Bee allergy status; Z79.899 Other long term (current) drug therapy
CPT/HCPCS: 82728; 83540; 83550; 93971; 96365; 99283-25; J0696

== ENCOUNTER 2023-05-19 15:27 | Emergency (ER) | payer OTHER ==
[~2023-05-19] VITALS: Ht 167.6 cm; Wt 58.1 kg
[2023-05-19 15:35] VITALS: BP 140/102
[2023-05-19] MEDS ORDERED: Lovenox80 MG/0.8 SC (17:26)
== END 2023-05-19 17:41 | disposition home or self-care (01) ==
LOC: ER 15:27
DX: S40.022A Contusion of left upper arm, initial encounter (principal); X58.XXXA Exposure to other specified factors, initial encounter; Z88.5 Allergy status to narcotic agent; Z88.8 Allergy status to other drugs, medicaments and biological substances; Z88.1 Allergy status to other antibiotic agents; Z91.030 Bee allergy status; Z79.899 Other long term (current) drug therapy; F17.210 Nicotine dependence, cigarettes, uncomplicated
CPT/HCPCS: 93971

== ENCOUNTER → 2023-09-22 | Outpatient (CLI) | payer OTHER ==
[~2023-09-22] MED LIST changes: +Lovenox80 MG/0.8 SC
[2023-09-22 15:45] LABS: BASOPHILS ABSOLUTE AUTO 0.07 K/mm3 (0.00-0.23); BASOPHILS PERCENT AUTO 1 % (0-2); EOSINOPHILS ABSOLUTE AUTO 0.14 K/mm3 (0.00-0.68); EOSINOPHILS PERCENT AUTO 2 % (0-6); Hematocrit 38.3 % (33.0-51.0); Hemoglobin 12.6 g/dL (11.5-16.0); IMMATURE GRAN ABSOLUTE AUTO 0.02 K/mm3 (0.00-0.10); IMMATURE GRAN PERCENT AUTO 0 % (0-1); LYMPHOCYTES PERCENT AUTO 36 % (21-46); MONOCYTES ABSOLUTE AUTO 0.34 K/mm3 (0.16-1.47); MONOCYTES PERCENT AUTO 5 % (4-13); Mean Corpuscular HGB Conc 32.9 g/dL (31.5-36.5); Mean Corpuscular Volume 88 fL (80-100); Mean Platelet Volume 10.1 fL (9.1-12.4); NEUTROPHILS ABSOLUTE AUTO 4.04 K/mm3 (1.96-9.15); NEUTROPHILS PERCENT AUTO 56 % (41-73); Platelet Count 391 K/mm3 (150-400); RDW Standard Deviation 45.2 fL (35.1-46.3); Red Blood Cell Count 4.35 M/mm3 (3.80-5.20); White Blood Cell Count 7.21 K/mm3 (4.00-11.30)
[2023-09-22 15:53] LABS: C-REACTIVE PROTEIN, EXT RANGE 0.443 mg/dL (0.000-0.300)
[2023-09-22 15:55] LABS: Albumin, Blood 3.3 g/dL (3.4-5.0); Albumin/Globulin Ratio 0.8 (0.8-1.8); Bilirubin, Total 0.2 mg/dL (0.1-1.0); Bun/Creatinine Ratio 21.7 (12.0-20.0); Calcium, Blood 8.5 mg/dL (8.5-10.1); Creatinine, Blood 0.74 mg/dL (0.40-1.00); Potassium, Blood 3.5 mmol/L (3.5-5.5); Total Protein, Blood 7.3 g/dL (6.4-8.2)
== END | disposition home or self-care (01) ==
LOC: LAB 14:20 → LAB SHORT 14:20
PROVIDERS: Internal Medicine
DX: K50.80 Crohn's disease of both small and large intestine without complications (principal)
CPT/HCPCS: 80053; 85025; 86140

== ENCOUNTER → 2024-01-20 | Outpatient (CLI) | payer OTHER ==
[2024-01-25 06:55] LABS: CALPROTECTIN,FECAL 222 ug/g (<=49)
== END | disposition home or self-care (01) ==
LOC: LAB 15:25 → LAB SHORT 15:25
PROVIDERS: Internal Medicine
DX: K50.80 Crohn's disease of both small and large intestine without complications (principal); Z79.899 Other long term (current) drug therapy
CPT/HCPCS: 83993

== ENCOUNTER 2024-05-06 06:15 | Emergency (ER) | payer OTHER ==
[~2024-05-06] VITALS: Ht 167.6 cm; Wt 53.5 kg
[2024-05-06] MEDS ORDERED: NS 1,000 ML IV ONE (06:33)
[2024-05-06] MEDS ORDERED: OxyCODONE 5 mg/Acetamin 325 mg TABLET PO ONE (06:40)
[2024-05-06] MEDS ORDERED: Erythromycin 0.5% Opth Oint 1 gm RIGHTEYE ONE (07:20)
[2024-05-06] MEDS ORDERED: OXYACE7.5T PO (07:42)
[2024-05-06] MEDS ORDERED: ERYT.5TO RIGHTEYE (07:42)
[2024-05-06 07:54] VITALS: BP 134/87
[2024-05-07] MEDS ORDERED: ERYT.5TO RIGHTEYE (13:01)
[2024-05-07] MEDS ORDERED: OXYACE7.5T PO (13:01)
== END 2024-05-06 07:54 | disposition home or self-care (01) ==
LOC: ER 06:15
DX: T54.3X1A Toxic effect of corrosive alkalis and alkali-like substances, accidental (unintentional), initial encounter (principal); H16.201 Unspecified keratoconjunctivitis, right eye; F17.210 Nicotine dependence, cigarettes, uncomplicated; G43.909 Migraine, unspecified, not intractable, without status migrainosus; Z79.899 Other long term (current) drug therapy; Z88.5 Allergy status to narcotic agent; Z91.030 Bee allergy status; Z91.048 Other nonmedicinal substance allergy status; Z88.8 Allergy status to other drugs, medicaments and biological substances
CPT/HCPCS: 99283; A9270; J7030

== ENCOUNTER 2024-05-07 12:35 | Emergency (ER) | payer OTHER ==
[~2024-05-07] VITALS: Ht 167.6 cm; Wt 53.5 kg
[~2024-05-07 12:35] MED LIST changes: +ERYT.5TO RIGHTEYE; +OXYACE7.5T PO
[2024-05-07 12:46] VITALS: BP 132/82
[2024-05-07] MEDS ORDERED: ERYT.5TO RIGHTEYE (13:01)
[2024-05-07] MEDS ORDERED: OXYACE7.5T PO (13:01)
== END 2024-05-07 13:25 | disposition home or self-care (01) ==
LOC: ER 12:35
DX: H57.89 Other specified disorders of eye and adnexa (principal); G40.909 Epilepsy, unspecified, not intractable, without status epilepticus; G43.909 Migraine, unspecified, not intractable, without status migrainosus; M79.7 Fibromyalgia; K50.90 Crohn's disease, unspecified, without complications; F17.210 Nicotine dependence, cigarettes, uncomplicated; Z91.038 Other insect allergy status; Z88.3 Allergy status to other anti-infective agents; Z88.8 Allergy status to other drugs, medicaments and biological substances; Z88.5 Allergy status to narcotic agent; Z88.6 Allergy status to analgesic agent; Z88.1 Allergy status to other antibiotic agents; Z79.899 Other long term (current) drug therapy; Z79.2 Long term (current) use of antibiotics; Z79.01 Long term (current) use of anticoagulants; Z90.49 Acquired absence of other specified parts of digestive tract
CPT/HCPCS: 99283

== ENCOUNTER → 2025-07-02 | Outpatient (CLI) | payer OTHER ==
[~2025-07-02] MED LIST changes: +PANT40 PO
[2025-07-02 16:37] LABS: Bacterial Vaginosis PCR Positive (NEGATIVE); Candida Group, PCR DETECTED (NOT DETECT); Candida glabrata-krusei, PCR DETECTED (NOT DETECT)
[2025-07-02 17:51] LABS: Chlamydia Trachomatis Vaginal NOT DETECTED (NOT DETECT); Neisseria Gonorrhoea Vaginal NOT DETECTED (NOT DETECT)
== END ==
LOC: LAB 12:58 → LAB SHORT 12:58
PROVIDERS: Physician Assistant Medical
DX: N76.0 Acute vaginitis (principal)
CPT/HCPCS: 81515; 87491; 87591

== ENCOUNTER 2025-07-07 11:40 | Emergency (ER) | payer OTHER ==
[~2025-07-07] VITALS: Ht 195.6 cm; Wt 56.2 kg
[~2025-07-07 11:40] MED LIST changes: -PANT40 PO
[2025-07-07] MEDS ORDERED: Ondansetron HCl 2 MG / ML 2ML Vial IV PRN (11:55)
[2025-07-07 12:05] LABS: BASOPHILS ABSOLUTE AUTO 0.06 K/mm3 (0.00-0.23); BASOPHILS PERCENT AUTO 1 % (0-2); EOSINOPHILS ABSOLUTE AUTO 0.17 K/mm3 (0.00-0.68); EOSINOPHILS PERCENT AUTO 2 % (0-6); Hematocrit 40.6 % (33.0-51.0); Hemoglobin 13.6 g/dL (11.5-16.0); IMMATURE GRAN ABSOLUTE AUTO 0.01 K/mm3 (0.00-0.10); IMMATURE GRAN PERCENT AUTO 0 % (0-1); LYMPHOCYTES ABSOLUTE AUTO 2.59 K/mm3 (0.84-5.20); LYMPHOCYTES PERCENT AUTO 31 % (21-46); MONOCYTES ABSOLUTE AUTO 0.48 K/mm3 (0.16-1.47); MONOCYTES PERCENT AUTO 6 % (4-13); Mean Corpuscular HGB Conc 33.5 g/dL (31.5-36.5); Mean Corpuscular Volume 90 fL (80-100); NEUTROPHILS ABSOLUTE AUTO 5.03 K/mm3 (1.96-9.15); NEUTROPHILS PERCENT AUTO 60 % (41-73); NRBC ABSOLUTE 0.00 K/mm3 (0.00-0.02); NRBC Auto 0.0 /100 WBC (0.0-0.2); Platelet Count 286 K/mm3 (150-400); RDW Coefficient Variation 12.6 % (11.7-14.2); RDW Standard Deviation 41.7 fL (35.1-46.3)
[2025-07-07 12:23] LABS: Alanine Aminotransfer (ALT/SGP 34.0 U/L (12-78); Albumin, Blood 3.5 g/dL (3.4-5.0); Albumin/Globulin Ratio 0.8 (0.8-1.8); Anion Gap 7.0 mmol/L (3-11); Aspartate Aminotrans (AST/SGOT 27.0 U/L (12-37); Bilirubin, Total 0.3 mg/dL (0.1-1.0); Blood Urea Nitrogen 13.0 mg/dL (8-24); CO2, Blood 28.0 mmol/L (21-32); Calcium, Blood 8.5 mg/dL (8.5-10.1); Chloride, Blood 104.0 mmol/L (98-108); Creatinine, Blood 0.7 mg/dL (0.40-1.00); Globulin, Blood 4.6 g/dL (2.2-4.0); Glucose, Blood 89.0 mg/dL (70-99); Potassium, Blood 4.2 mmol/L (3.5-5.5); Sodium, Blood 135.0 mmol/L (136-145); Total Protein, Blood 8.1 g/dL (6.4-8.2)
[2025-07-07] MEDS ORDERED: Lidocaine 2% Viscous Soln 15 ML UDC PO ONE (12:50)
[2025-07-07] MEDS ORDERED: FentaNYL Citrate 50 MCG/ML 2 ML Injection IV ONE (12:50)
[2025-07-07] MEDS ORDERED: Atropine/Scopalam/Hyoscam/PB 5 ML UDC PO ONE (12:50)
[2025-07-07] MEDS ORDERED: NS 1,000 ML IV SCH (13:00)
[2025-07-07] MEDS ORDERED: Pantoprazole Sodium 40 MG Injection IV ONE (13:50)
[2025-07-07] MEDS ORDERED: DiphenhydrAMINE HCl 50 MG/ML 1ML Vial IV ONE (13:50)
[2025-07-07] MEDS ORDERED: Prochlorperazine Edisylate 10 mg Vial IV ONE (13:50)
[2025-07-07 14:30] VITALS: BP 122/69
[2025-07-07] MEDS ORDERED: PANT40 PO (14:32)
== END 2025-07-07 15:14 | disposition home or self-care (01) ==
LOC: ER 11:40
PROVIDERS: Student in an Organized Health Care Education/Training Program
DX: K27.9 Peptic ulcer, site unspecified, unspecified as acute or chronic, without hemorrhage or perforation (principal); E87.1 Hypo-osmolality and hyponatremia; F17.210 Nicotine dependence, cigarettes, uncomplicated; Z79.899 Other long term (current) drug therapy; Z88.5 Allergy status to narcotic agent; Z88.6 Allergy status to analgesic agent; Z88.1 Allergy status to other antibiotic agents; Z88.8 Allergy status to other drugs, medicaments and biological substances; Z91.030 Bee allergy status
CPT/HCPCS: 71046; 80053; 83690; 84484; 85025; 93005; 93010; 96374; 96375; 99285-25; A9270; J0780; J1200; J2405; J2470; J3010; J7030